=== PATIENT | male | born 1955 | race Caucasian/White ===

== ENCOUNTER 2017-08-07 20:32 | Emergency (ER) | payer OTHER, SELFPAY ==
[2017-08-07 20:33] VITALS: BP 122/60; PULSE 75; RESP 16; TEMP 36.1; O2SAT 98; BMI 26.4
[2017-08-07] MEDS: Tetracaine 0.5% Ophthalmic Bottle 1 DRP LEFT EYE (20:57)
--- NOTE | 2017-08-07 21:01 | ED.DCSUM_ITS ---
- ER Visit Summary Date of Service: 08/07/17 Chief Complaint: Foreign body History of Present Illness: The patient is a 61 M with left eye pain. He was sawing and got sawdust in his left eye. He tried to flush it at home, but it is not helping. Patient was wearing glasses. He does not use contact lenses. He has some mild blurriness to the eye. No other complaints. Physical Examination: Vital signs unremarkable. Patient alert and oriented. Extraocular structures and skin unremarkable. Extraocular movement normal. Pupils round and reactive, symmetrical. No obvious foreign body noted. Eyelids inverted. Otherwise exam unremarkable. Test Results: None indicated Emergency Department Course and Treatment: Tetracaine applied. Fluorescein applied. Patient has a corneal abrasion at 12:00. No foreign bodies noted. No other significant abnormalities noted. Treatment Plan: We will treat with erythromycin ointment. Follow-up with ophthalmology, call tomorrow. Return for any new or worsening issues. Disposition: Discharged Impression: 1. Left corneal abrasion This note was generated with [employer]ue[employer] dictation software. It may contain incorrect words, spelling, and punctuation that were not noted in review of the chart prior to signing ED Disposition - Plan for ED Patient: Disposition: Home or Assisted Living Chief Complaint: Eye Problem Instructions: Corneal Injury Referrals: Mo Milner MD [STAFF PHYSICIAN] - Additional Instructions: call Dr. Cardona office in the morning for follow up
--- NOTE | 2017-08-07 21:06 | DCINST.ED_ITS ---
ED Disposition - Plan for ED Patient: Chief Complaint: Eye Problem Instructions: Corneal Injury Referrals: Mo Milner MD [STAFF PHYSICIAN] - Additional Instructions: call Dr. Cardona office in the morning for follow up
[2017-08-07 21:13] VITALS: RESP 18
[2017-08-07] MEDS: Erythromycin Base 1 OPTH.TUBE 1 APPLIC LEFT EYE (21:13)
== END 2017-08-07 21:13 | disposition home or self-care (01) ==
LOC: ED 20:56
PROVIDERS: Emergency Provider Emergency Medicine; Family Provider Internal Medicine; PCP Internal Medicine
DX: S05.02XA Injury of conjunctiva and corneal abrasion without foreign body, left eye, initial encounter (principal); X58.XXXA Exposure to other specified factors, initial encounter; Y93.89 Activity, other specified; Y92.9 Unspecified place or not applicable
CPT/HCPCS: 99283

== ENCOUNTER 2020-04-17 10:41 | Outpatient (RCR) | payer BC, SELFPAY ==
[2020-04-17] MEDS: COVID-19 VACC, MRNA(PFIZER)/PF 30 MCG/0.3 ML SYRINGE IM (18:28)
[2020-05-08] MEDS: COVID-19 VACC, MRNA(PFIZER)/PF 30 MCG/0.3 ML SYRINGE IM (17:59)
== END 2020-04-17 23:59 ==
LOC: IMMUN 10:41
PROVIDERS: PCP Internal Medicine; Referring Provider Family Medicine; Visit Provider Family Medicine
DX: Z23 Encounter for immunization (principal)
CPT/HCPCS: 0001A; 0002A; 91300

== ENCOUNTER → 2021-06-15 | Outpatient (CLI) | payer OTHER, SELFPAY ==
--- NOTE | 2021-06-15 13:36 | SP.MBSS_ITS ---
Modified Barium Swallow - Patient Information Study Date: 06/15/21 Study Time: 13:00 Direct Billable Minutes: 120 Total Minutes procedure & reportin Diagnosis: Dysphagia, unspecified (R13.10) Referring Physician: Florecita Alonso Reason for Referral: Objectively assess swallow function, risk for aspiration, and determine recommendations for least restrictive diet textures and compensatory strategies to improve safety of swallow. 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 The patient reports history of swallowing difficulty in the past month characterized by 10lb weight loss, sensation of food getting stuck and building up in base of the throat, and occasional coughing with food and drink. He primarily eats soft solids, soups, and purees at this time. Current Diet Ordered: Soft solids / Thin liquids Dentition: WNL Mental Status: WNL Respiratory Status: Oxygenating on Room Air - Penetration-Aspiration Scale Penetration-Aspiration Scale: OBJECTIVE ASSESSMENT OF SWALLOW FUNCTION (QUANTITATIVE ? PER TRIAL): PENETRATION / ASPIRATION SCALE (ARELLANO): 1 = does not enter airway 2 = enters airway/above vocal folds/ejected 3 = enters airway/above vocal folds/not ejected 4 = enters airway/contacts vocal folds/ejected 5 = enters airway/contacts vocal folds/not ejected 6 = enters airway/below vocal folds/ejected 7 = enters airway/below vocal folds/not ejected despite effort 8 = enters airway/below vocal folds/no effort VIDEOFLOROSCOPIC SCALE SCORE (ARELLANO): Grade I = aspiration of material that has penetrated into the laryngeal vestibule, intact cough reflex Grade II = aspiration < 10 % of the bolus, intact cough reflex Grade III = aspiration of < 10 % of the bolus, reduced cough reflex or aspiration of > 10 % of the bolus, intact cough reflex Grade IV = aspiration of > 10 % of the bolus, reduced cough reflex - Penetration-Aspiration Scale Score Thin Liquid via teaspoon Result: 1= does not enter airway Thin Liquid via teaspoon Trial 2 Result: 1= does not enter airway Thin Liquid via teaspoon Trial 3 Result: 1= does not enter airway Thin Liquid via small single sip from cup Result: 1= does not enter airway Thin Liquid via sequential sips from cup Result: 1= does not enter airway [place] Thick Liquid via small single sip from cup Result: 1= does not enter airway [place] Thick Liquid via small single sip from cup Result: 1= does not enter airway Thin Liquid via single sip from straw Result: 2= enter airway/above vocal folds/ejected Thin Liquid via sequential sips from straw Result: 1= does not enter airway - Oral Phase Labial Seal: No Labial Escape Tongue Control During Bolus Hold: Posterior escape of less than half of bolus Bolus Preparation/Mastication: Slow prolonged chewing/mashing with complete recollection Bolus Transport/Lingual Motion: Brisk tongue motion Oral Residue: Residue collection on oral structures - Pharyngeal Phase Initiation of Pharyngeal Swallow: Bolus head at posterior laryngeal surgace of epiglottis Soft Palate Elevation: Trace column of contrast/air between soft palate and pharyngeal wall Laryngeal Elevation: Partial superior movement thyroid cart/partial apprx aryt- epig petiole Anterior Hyoid Excursion: Partial anterior movement Epiglottic Movement: Partial inversion Laryngeal Vestibule Closure at Height of Swallow: Incomplete; narrow column of air/contrast in laryngeal vestibule Pharyngeal Stripping Wave: Present - complete Pharyngoesophageal Segment Opening: Parital distension and partial duration; parital obstruction of flow Tongue Base Retraction: Narrow column of contrast between tongue base & post. pharyngeal wall Pharyngeal Residue: Collection of residue within or on pharyngeal structures - Esophageal Phase Esophageal Clearance: Esophageal retention w/ retrograde flow below pharyngoesophageal seg. - Diagnosis/Impression Diagnosis: Mild oropharyngeal dysphagia (R13.12), Esophageal dysphagia (R13.14) Impression: The oral phase is marked by a collection of oral residue after the swallow, which spills posteriorly to the vallecula after the swallow is completed. SEE image below of sequential sips of thin liquids with collection of oral residue evident after the swallow. The patient demonstrates timely mastication, but has posterior loss of portion of cookie bolus to the vallecula prior to swallow onset. The pharyngeal phase of the swallow is marked by decreased anterior hyoid excursion and laryngeal elevation; however, despite deficits the patient demonstrates excellent airway closure during the study. He has trace penetration of one sips of thin liquids via straw which fully ejects from the laryngeal vestibule after the swallow. He does have mild pharyngeal residues, especially noted with sequential sips of thin liquids. Pharyngeal residue results from decreased tongue base retraction and UES opening/duration. He is at increased risk to aspirate pharyngeal residues after the swallow. The esophageal phase of the swallow is marked by significant esophageal reten tion in the mid esophagus with retrograde flow below UES. The patient demonstrated slow esophageal emptying through a narrow distal esophagus. SEE images below of the esophageal screen for pudding and cookie trials. Cannot rule out risk for reflux aspiration. - Recommendations Diet: Regular Textures - Continue soft, moist textures as tolerated, Thin Liquid s Comment: Consider 4-5 smaller, more frequent meals vs. 3 large meals Compensatory Strategies: Small Bites, Small Sips, Slow Rate, Remain sitting up right for 30 minutes after PO intake - 60 minutes after meal Recommend Repeat Modified Barium Swallow: No Need for Skilled Speech Therapy Services: Yes Comment: Will recommend the patient for outpatient dysphagia therapy to address mild deficits in oropharyngeal swallow function. Would consider the patient for oropharyngeal strengthening to improve tongue base retraction, laryngeal elevation, and hyoid excursion. The patient would benefit from education regarding diet recommendations and recommended compensatory strategies. The patient appears to have a collection of oral residue in the buccal cavity near the angle of the ramus (SEE image below). No A-P view obtained. The patient is possibly demonstrating residue in the buccal sulci (pocketing); however, would recommend a thorough oral mech exam in buccal cavities to rule out a unilateral oral diverticulum. Recommended Referrals: GI Consult - The patient requires a GI consult to address significant esophageal retention with observed retrograde flow of contrast and slow esophageal emptying with narrow lower esophagus. Education Completed: 1. Described result of evaluation., 7. Pt requires further education on strategies & risks. - Status Active ST Patient: Active - Contact Information [facility] Speech Therapy:: Meenu Herzog M.A. [facility] Speech-Language Pathologist [facility] [address] [place] [address] [email or web address] [phone] 06/15/21 15:21
== END | disposition home or self-care (01) ==
LOC: RAD 12:57
PROVIDERS: PCP Internal Medicine
DX: R13.10 Dysphagia, unspecified (principal); R11.10 Vomiting, unspecified; R63.4 Abnormal weight loss
CPT/HCPCS: 74230; 92611

== ENCOUNTER → 2021-06-18 | Outpatient (CLI) | payer OTHER, SELFPAY ==
--- NOTE | 2021-06-18 08:09 | RAD_ITS ---
STUDY: X-RAY - ESOPHAGUS (BARIUM SWALLOW) WITH FLUOROSCOPY REASON FOR EXAM: Male, 65 years old. Gets stuck in mid esophagus. 12 MM TABLET TECHNIQUE: 26 view(s) of the esophagus were obtained following swallowing of barium. FLUOROSCOPY TIME (if supplied): (41 seconds) minutes/seconds COMPARISON: None. FINDINGS: There is no demonstrated esophageal foreign body. There is evidence of apple core lesion in the distal portion of the esophagus just proximal to the gastroesophageal junction. Normal gastroesophageal junction, without a demonstrated hiatal hernia. The patient ingested a 12 mm tablet of barium. The tablet is trapped in the distal esophagus at the level of the apple core lesion. There is atherosclerotic tortuosity of the aortic arch and descending thoracic aorta. Normal visualized pulmonary parenchyma. There are diffuse degenerative changes of the visualized thoracic spine. RAD/Esophagus Single Contrast IMPRESSION: Apple core lesion with narrowing in the distal esophagus just proximal to the gastroesophageal junction. The 12 mm tablet of barium is trapped at that site. Correlation with the endoscopy and biopsy recommended. Electronically Signed: Clayton Hirsch MD at 10:29 EDT ,
== END | disposition home or self-care (01) ==
LOC: RAD 08:08
PROVIDERS: PCP Internal Medicine; Referring Provider Internal Medicine Gastroenterology; Visit Provider Internal Medicine Gastroenterology
DX: R13.10 Dysphagia, unspecified (principal)
CPT/HCPCS: 74220

== ENCOUNTER 2021-08-12 22:57 | Emergency (ER) | payer OTHER, SELFPAY ==
[2021-08-12 22:58] VITALS: BP 125/81; PULSE 96; RESP 16; TEMP 36.8; O2SAT 100; BMI 23.6
--- NOTE | 2021-08-12 23:21 | EX.ED.DYSGE1 ---
HPI History of Present Illness Chief Complaint: GI Bleed Informant: patient and spouse/S.O. Narrative Narrative: 65-year-old male with history of esophageal cancer currently undergoing chemoradiation through [facility]. Patient states is very common for him to vomit but today began to vomit blood. He has had 2 doses of radiation. He used to be on Plavix and aspirin but has been holding that. This the first time he has vomited blood. He denies any chest abdomen or back pain. He last vomited when he got to the emergency department states there is less blood than before. He states that there is some blood clots earlier in the evening. [facility] Medical History (Updated 08/13/21 @ 02:[address] New Smith DO) Acute cerebrovascular accident BPH (benign prostatic hyperplasia) Cystic kidney disease Erectile dysfunction Esophagus cancer Fatty liver disease, nonalcoholic Hyperlipidemia Lung cancer Nocturnal leg cramps Other psoriasis PVC (premature ventricular contraction) Restless leg syndrome Sleep apnea Type 2 diabetes mellitus Unilateral inguinal hernia, without obstruction or gangrene, recurrent Ventricular arrhythmia Home Medications Benazepril Hcl [Lotensin] 20 mg PO BID 06/02/15 [History Last Taken 02/25/16 07:00] glipizide 5 mg tablet 5 mg PO DAILY@0730 06/02/15 [History Last Taken 06/02/15] metformin 500 mg tablet 500 mg PO BIDCM 06/02/15 [History Last Taken 06/02/15] Lovastatin [Mevacor] 40 mg PO QHS #30 TABLETS 06/03/15 [Rx Last Taken Unknown] clopidogrel 75 mg tablet 75 mg PO DAILY #30 TABLETS 06/03/15 [Rx Last Taken 02/20/16] amlodipine 10 mg tablet 10 mg PO DAILY 06/10/21 [History Last Taken Unknown] empagliflozin 10 mg tablet 10 mg PO DAILY 06/10/21 [History Last Taken Unknown] gabapentin 100 mg capsule 100 mg PO DAILY 06/10/21 [History Last Taken Unknown] Allergy/AdvReac Type Severity Reaction Status Date / Time pollen extracts Allergy Swelling Verified 08/12/21 22:59 Family History Father Heart disease Mother Heart disease Surgical History S/P laparoscopic hernia repair Social History Smoking Status: Former smoker alcohol intake: never substance use type: does not use ROS ROS ED Constitutional Constitutional ED: Denies chills or weight loss Eyes Eyes: Denies change in vision or diplopia ENT ENT ED: Denies ear pain, rhinorrhea or sore throat Cardiovascular Cardiovascular: Denies chest pain, orthopnea, palpitations or racing heartbeat Respiratory/Chest Respiratory/Chest: Reports other Details: Hemoptysis ; Denies cough, dyspnea or orthopnea Gastrointestinal Gastrointestinal: Reports nausea and vomiting; Denies abdominal pain or diarrhea Genitourinary Genitourinary ED: Denies dysuria, hematuria or urinary frequency Musculoskeletal Musculoskeletal: Denies arthralgias or myalgias Integumentary Denies abscess or rash Neurologic Neurologic: Denies headache(s) or weakness Psychiatric Psychiatric: Denies anxiety, depression, suicidal ideation or suicidal thoughts Endocrine Endocrinology: Denies polydipsia, polyphagia or polyuria Allergic/Immunologic Allergic/Immunologic ED: Denies mouth swelling, tongue swelling or urticaria EXAM Physical Exam Const Vital Signs: 08/12/21 22:58 Temperature 98.2 F Temperature Source Temporal Pulse Rate 96 Respiratory Rate 16 Blood Pressure 125/81 H Blood Pressure Mean 95 Pulse Ox 100 Oxygen Delivery Method Room Air Positive well nourished and well developed General Appearance ED: well developed HEENT Reports normocephalic, head/scalp atraumatic and moist mucous membranes Eyes PERRL and EOMs intact bilaterally Neck no lymphadenopathy, supple and no JVD Resp normal respiratory effort and clear to auscultation bilaterally Cardio regular rate, regular rhythm and no murmurs GI normal to inspection, nondistended, normoactive bowel sounds and non-tender Palpation: soft Back/Spine no CVA tenderness and normal ROM Extremity normal to inspection General Extremety ED: Negative for edema General Extremity: Negative for edema Neuro oriented x3 and CN's II-XII intact bilaterally Sensorium / Orientation: alert Motor Exam: strength 5/5 throughout Psych mental status grossly normal Mood & Affect: Negative for depressed or tearful Skin no rashes or lesions noted and no wounds MDM MDM MDM Narrative Medical decision making narrative: Patient is remained hemodynamically stable. His hemoglobin is 15.2. Since he has been here he is put out approximately 500 cc of bloody emesis. CT of the chest with IV con stress dentist rates distended esophagus and a tumor at the cardioesophageal junction extending into the stomach. My concern is that he has a esophageal erosion and given that they were unable to pass the scope beyond the esophageal tumor I am concerned that if he continues to bleed he may require cardiothoracic surgery. Spoke with [facility] and they have accepted the patient in transfer. Patient will receive IV fluids as well as Protonix. He is also received Zofran. Lab Data Attestation: I reviewed the patient's lab results. Labs: Laboratory Results - last 24 hr 08/12/21 08/12/21 23:49 23:49 WBC 12.8 H RBC 5.15 Hgb 15.2 Hct 46.2 MCV 89.7 MCH 29.5 MCHC 32.9 RDW Std Deviation 41.0 RDW Coeff of Chuck 12.4 Plt Count 283 MPV 9.9 Immature Gran % (Auto) 0.500 Neut % (Auto) 80.0 H Lymph % (Auto) 4.2 L Desha % (Auto) 5.7 Eos % (Auto) 9.4 H Baso % (Auto) 0.2 Absolute Neuts (auto) 10.3 H Absolute Lymphs (auto) 0.54 L Nucleated RBC % 0 Sodium 138 Potassium 4.0 Chloride 101 Carbon Dioxide 27.0 Anion Gap 10 BUN 30 H Creatinine 0.89 Estim Creat Clear Calc 86.96 Est GFR (MDRD) Af Amer 110 Est GFR (MDRD) Non-Af 91 BUN/Creatinine Ratio 33.8 H Glucose 241 H Calcium 8.7 Total Bilirubin 0.60 AST 12 L ALT 33 Alkaline Phosphatase 110 Total Protein 7.1 Albumin 3.1 L Globulin 4.0 Albumin/Globulin Ratio 0.8 L Radiography Diagnostic Testing: Clinical Impression(s) from Imaging Studies Chest CT 08/13/21 23:19 IMPRESSION: 1. Moderately dilated esophagus throughout its length filled with tumor, fluid, and a small amount of food debris. 2. Demonstration of lobulated neoplasm measuring 4.5 cm in diameter at the cardioesophageal junction, extending into the upper medial gastric fundus. 3. Multiple abnormal lymph nodes in the epigastric region and findings of mild mediastinal lymphadenopathy. 4. Normal trachea. 5. Multiple small alveolar foci throughout both lungs that do not have the classical appearance for metastatic disease. They may represent multiple small sites of emboli or multifocal small sites of aspiration. 6. No confluent infiltrates, atelectasis, effusion, pulmonary mass lesions. Mild cardiomegaly. 7. No evidence of metastatic disease involving the sternum, ribs or thoracic spine. Mild thoracic kyphosis with mild estimated degenerative changes. 8. Mild hepatomegaly with diffuse fatty infiltration. 9. Gastric tube in the distal gastric body. Electronically Signed: John Jeff MD at 1:43 EDT , Discharge Plan Triage Chief Complaint: GI Bleed ED Provider: New Smith Dx/Rx/DC Orders Clinical Impression: Esophageal cancer, Acute upper GI bleeding Prescriptions: No Action empagliflozin 10 mg tablet 10 mg PO DAILY gabapentin 100 mg capsule 100 mg PO DAILY amlodipine 10 mg tablet 10 mg PO DAILY glipizide 5 MG tablet 5 mg PO DAILY@0730 Label Comments: BLOOD SUGAR Benazepril Hcl [Lotensin] 20 MG tablet 20 mg PO BID Label Comments: BLOOD PRESSURE metformin 500 MG tablet 500 mg PO BIDCM Label Comments: BLOOD SUGAR clopidogrel 75 MG tablet 75 mg PO DAILY Qty: 30 0RF Label Comments: blood thinner Lovastatin [Mevacor] 40 MG tablet 40 mg PO QHS Qty: 30 0RF Label Comments: cholesterol Primary Care Provider: Job Cohen Referrals: Job Cohen MD [Primary Care Provider] - Disposition Disposition: Acute Care Hospital Discharge Location: [facility]
[2021-08-12] MEDS: Contrast Allergy Safety Check IV (23:51)
[2021-08-12] MEDS: 0.9% Normal Saline 1,000 ML 999 ML IV (23:51)
[2021-08-12] MEDS: Ondansetron 4 MG/2 ML Vial IV (23:59)
[2021-08-13 00:06] LABS: Absolute Lymphocyte Count 0.54 X10^3/uL (0.83-4.51); Absolute Neutrophil Count 10.3 X10^3/uL (2.0-7.7); Basophil# 0.03 X10^3/uL; Basophil% 0.2 % (0-1); Eosinophil# 1.21 X10^3/uL; Eosinophils% 9.4 % (0-5); Hematocrit 46.2 % (40-54); Hemoglobin 15.2 g/dL (13.0-16.5); Lymphocyte # 0.54 X10^3/ul (0.83-4.51); Lymphocyte % 4.2 % (19-41); Mean Corp Hgb Conc 32.9 g/dL (32-36); Mean Corpuscular Hgb 29.5 pg (27.0-32.0); Mean Corpuscular Volume 89.7 fL (80-94); Mean Platelet Vol. 9.9 fl (6.2-12.0); Monocyte# 0.73 X10^3/uL; Monocyte% 5.7 % (0-10); NRBC Flagged by Analyzer 0 % (0-5); Neutrophil # 10.25 X10^3/uL (2.7-7.7); POSITIVE DIFFERENTIAL YES; Platelet Count 283 K/mm3 (150-450); RBC Distribution Width CV 12.4 % (11.6-14.6); Red Blood Count 5.15 M/mm3 (4.6-6.2); White Blood Count 12.8 K/mm3 (4.4-11.0)
[2021-08-13 00:07] LABS: Differential Indicated SCAN CRITERIA MET
[2021-08-13 00:23] LABS: ALB/GLOB Ratio 0.8 RATIO (0.9-2.4); AST(SGOT) 12 U/L (15-37); Alanine Aminotransfer ALT/SGPT 33 U/L (16-61); Albumin, Serum 3.1 g/dL (3.2-5.0); Alkaline Phosphatase 110 U/L (45-117); Anion Gap 10 (5-15); BUN 30 mg/dL (7-18); BUN/Creat Ratio 33.8 RATIO (10-20); Calcium,Total 8.7 mg/dL (8.5-10.1); Chloride 101 mmol/L (98-107); Creatinine, Serum 0.89 mg/dL (0.70-1.30); EST Glomerular Filtration Rate 91 mL/min (>60); Est Glom Filt Rate - Afr Amer 110 mL/min (>60); Estimated Creatinine Clearance 86.96 ml/min; Glucose 241 mg/dL (74-106); Protein, Total 7.1 g/dL (6.4-8.2); Sodium Level 138 mmol/L (136-145)
[2021-08-13] MEDS: Ondansetron 4 MG/2 ML Vial IV (00:39)
[2021-08-13 02:02] VITALS: BP 110/65; PULSE 86; RESP 15; TEMP 36.6; O2SAT 97
[2021-08-13 02:11] VITALS: BP 128/77; PULSE 102; RESP 15; TEMP 36.2; O2SAT 96
--- NOTE | 2021-08-13 23:19 | CT_ITS ---
STUDY: CT CHEST WITH CONTRAST ENHANCEMENT OF 0049 HOURS ON 08/13/2021 REASON FOR EXAM: 65-year-old male with esophageal cancer. RADIATION DOSAGE (If Supplied By Facility): CTDIvol = ( 12.80 ) mGy, DLP = ( 622.16 ) mGycm TECHNIQUE: Transaxial imaging was performed following intravenous administration of IV 100mL Isovue-300. Individualized dose optimization techniques were used for this CT. COMPARISON: None. FINDINGS: There is mild cardiomegaly. There is a prominently dilated esophagus throughout its length measuring 1.8 cm in the cervical region, 4.2 cm in the mid thoracic region, and 4.3 cm just above the cardioesophageal junction. It is filled with tumor, fluid, and a small amount of fluid debris.. There are findings suggestive of an irregular lobulated mass measuring 4.5 cm at the cardioesophageal junction, extending into the upper medial gastric fundus. A gastric tube is noted in the distal gastric body. There are multiple abnormal lymph nodes in the epigastric region. There are findings of mild mediastinal lymphadenopathy. The trachea has a normal appearance. There are multiple small alveolar foci throughout both lungs that do not have the classical appearance of metastatic disease. They may represent multiple small sites of emboli or multifocal small sites of aspiration. There is no confluent infiltrates, effusions, atelectasis. There is no evidence of pleural abnormalities. There are no findings of pulmonary thromboembolism. There is a normal thoracic aorta without evidence of dissection or aneurysm. There is a moderate thoracic kyphosis. There are mild diffuse osteophytic degenerative changes of the thoracic spine. There is anterior osteophyte formation between the first and second segment of the sternum. There is no evidence of sternal fractures. There is no evidence of thoracic spine, sternal, or rib metastatic lesions. There is mild hepatomegaly with diffuse fatty infiltration. The pancreas has normal appearance. CT/Chest WITH Contrast IMPRESSION: 1. Moderately dilated esophagus throughout its length filled with tumor, fluid, and a small amount of food debris. 2. Demonstration of lobulated neoplasm measuring 4.5 cm in diameter at the cardioesophageal junction, extending into the upper medial gastric fundus. 3. Multiple abnormal lymph nodes in the epigastric region and findings of mild mediastinal lymphadenopathy. 4. Normal trachea. 5. Multiple small alveolar foci throughout both lungs that do not have the classical appearance for metastatic disease. They may represent multiple small sites of emboli or multifocal small sites of aspiration. 6. No confluent infiltrates, atelectasis, effusion, pulmonary mass lesions. Mild cardiomegaly. 7. No evidence of metastatic disease involving the sternum, ribs or thoracic spine. Mild thoracic kyphosis with mild estimated degenerative changes. 8. Mild hepatomegaly with diffuse fatty infiltration. 9. Gastric tube in the distal gastric body. Electronically Signed: John Jeff MD at 1:43 EDT ,
== END 2021-08-13 04:05 | disposition short-term general hospital (02) ==
PROVIDERS: Emergency Provider Emergency Medicine; PCP Internal Medicine; Visit Provider Emergency Medicine
DX: C15.9 Malignant neoplasm of esophagus, unspecified (principal); K92.2 Gastrointestinal hemorrhage, unspecified; G47.30 Sleep apnea, unspecified; Z79.82 Long term (current) use of aspirin; Z79.01 Long term (current) use of anticoagulants; Z87.891 Personal history of nicotine dependence
CPT/HCPCS: 71260; 80053; 85025; 96374; 96376; 99285; J7030; Q9967; A4216; J2405; J3490

== ENCOUNTER 2022-01-15 15:20 | Inpatient (IN) | payer MEDICARE, SELFPAY ==
[2022-01-15] VITALS (12 sets, daily range): BP systolic 107–158; BP diastolic 81–88; PULSE 73–113; RESP 17–32; TEMP 36.2–36.6; O2SAT 88–95; BMI 22.3
--- NOTE | 2022-01-15 15:48 | EKG12_ITS ---
Test Reason : Blood Pressure : / mmHG Vent. Rate : 103 BPM Atrial Rate : 103 BPM P-R Int : 144 ms QRS Dur : 086 ms QT Int : 346 ms P-R-T Axes : 028 -45 069 degrees QTc Int : 453 ms Sinus tachycardia Left axis deviation Abnormal ECG Confirmed by ASH SOARES, CHAPIN ([id number]), society editor LIBAN PARSONS ([id number]) on 01/19/2022 12:14:46 PM Referred By: Confirmed By:CHAPIN ALEMAN MD
--- NOTE | 2022-01-15 15:49 | EDS_ITS ---
HPI History of Present Illness Chief Complaint: Cough Informant: patient Onset/Context/Timing Onset: Weeks Context: Gradual Onset Narrative Narrative: Patient sent in by oncology for admission secondary to cough and shortness of breath. He reported had a cough for the past 2 weeks. He said no fever, chest pain, or sputum production. He had a chest x-ray yesterday that reportedly showed small pleural effusions. He had a CT scan done today that shows pneumonitis. Dr. Olson asked the patient to come in and he is to be admitted for IV steroids. Dr. Olson believes the pneumonitis is secondary to one of his medications. Last chemotherapy treatment was on January 04. He receives treatments every 2 weeks. [facility] Medical History Acute cerebrovascular accident BPH (benign prostatic hyperplasia) Cystic kidney disease Erectile dysfunction Esophagus cancer Fatty liver disease, nonalcoholic Hyperlipidemia Lung cancer Nocturnal leg cramps Other psoriasis PVC (premature ventricular contraction) Restless leg syndrome Sleep apnea Type 2 diabetes mellitus Unilateral inguinal hernia, without obstruction or gangrene, recurrent Ventricular arrhythmia Home Medications Benazepril Hcl [Lotensin] 20 mg PO BID 06/02/15 [History Last Taken 02/25/16 07:00] glipizide 5 mg tablet 5 mg PO DAILY@0730 06/02/15 [History Last Taken 06/02/15] metformin 500 mg tablet 500 mg PO BIDCM 06/02/15 [History Last Taken 06/02/15] Lovastatin [Mevacor] 40 mg PO QHS #30 TABLETS 06/03/15 [Rx Last Taken Unknown] clopidogrel 75 mg tablet 75 mg PO DAILY #30 TABLETS 06/03/15 [Rx Last Taken 02/20/16] amlodipine 10 mg tablet 10 mg PO DAILY 06/10/21 [History Last Taken Unknown] empagliflozin 10 mg tablet 10 mg PO DAILY 06/10/21 [History Last Taken Unknown] gabapentin 100 mg capsule 100 mg PO DAILY 06/10/21 [History Last Taken Unknown] Allergy/AdvReac Type Severity Reaction Status Date / Time pollen extracts Allergy Swelling Verified 01/15/22 15:24 Family History Father Heart disease Mother Heart disease Surgical History S/P laparoscopic hernia repair Social History Smoking Status: Former smoker alcohol intake: never substance use type: does not use ROS ROS ED Constitutional Constitutional ED: Denies chills or fever(s) Eyes Eyes: Denies change in vision or discharge from eye(s) ENT ENT ED: Denies discharge from eye(s), rhinorrhea or sore throat Cardiovascular Cardiovascular: Denies chest pain or palpitations Respiratory/Chest Respiratory/Chest: Reports cough and dyspnea; Denies sputum Gastrointestinal Gastrointestinal: Denies abdominal pain, nausea or vomiting Genitourinary Genitourinary ED: Denies dysuria Musculoskeletal Musculoskeletal: Denies back pain or extremity pain Integumentary Denies Abrasions or rash Neurologic Neurologic: Denies headache(s) or weakness Psychiatric Psychiatric: Denies anxiety or depression Allergic/Immunologic Allergic/Immunologic ED: Denies lip swelling or urticaria EXAM Physical Exam Const Vital Signs: 01/15/22 15:21 01/15/22 15:42 01/15/22 16:02 Temperature 97.2 F L Temperature Source Temporal Pulse Rate 113 H Respiratory Rate 22 H Respiratory Effort Short of Breath Blood Pressure 158/81 H Blood Pressure Mean 106 Pulse Ox 89 88 Oxygen Delivery Method Room Air Room Air Room Air Oxygen Flow Rate (L/min) 01/15/22 16:10 Temperature Temperature Source Pulse Rate Respiratory Rate Respiratory Effort Blood Pressure Blood Pressure Mean Pulse Ox 91 Oxygen Delivery Method Nasal Cannula Oxygen Flow Rate (L/min) 2 Positive well nourished and well developed General Appearance ED: well developed HEENT Reports normocephalic and head/scalp atraumatic Eyes PERRL and EOMs intact bilaterally Neck supple Chest Wall inspection of chest normal and palpation of chest normal Resp Resp Narrative: Tachypneic. Lung sounds slightly diminished at the bases. No wheezing appreciated. Cardio regular rhythm Rate: tachycardic GI normal to inspection, nondistended, normoactive bowel sounds Palpation: soft Extremity normal to inspection Neuro oriented x3 and no sensory deficits noted Sensorium / Orientation: alert Motor Exam: strength 5/5 throughout Psych mental status grossly normal Skin no rashes or lesions noted MDM MDM MDM Narrative Medical decision making narrative: Lab work obtained along with EKG. Respiratory viral panel sent. Patient already had x-ray and chest CT performed. He was given IV Solu-Medrol. I spoke with hospitalist who then in turn call Dr. Olson. They have a plan for treatment at this time and she will be down to see the patient for admission. EKG Initial EKG: Attestation: I personally reviewed and interpreted this EKG as follows: Interpretation: Sinus Tachycardia (Sinus tach at 103 with no acute ischemia.) Treatment and Re-Evaluation Narrative: EKG reveals sinus tachycardia with no ischemia. I was notified by respiratory staff when he handed me the EKG that the patient's O2 sat was 88% when I walked in the room. He is currently on 3 L and satting 91 to 92%. Discharge Plan Triage Chief Complaint: Cough ED Provider: Shirlene Melgar Dx/Rx/DC Orders Clinical Impression: Pneumonitis Prescriptions: No Action empagliflozin 10 mg tablet 10 mg PO DAILY gabapentin 100 mg capsule 100 mg PO DAILY amlodipine 10 mg tablet 10 mg PO DAILY glipizide 5 MG tablet 5 mg PO DAILY@0730 Label Comments: BLOOD SUGAR Benazepril Hcl [Lotensin] 20 MG tablet 20 mg PO BID Label Comments: BLOOD PRESSURE metformin 500 MG tablet 500 mg PO BIDCM Label Comments: BLOOD SUGAR clopidogrel 75 MG tablet 75 mg PO DAILY Qty: 30 0RF Label Comments: blood thinner Lovastatin [Mevacor] 40 MG tablet 40 mg PO QHS Qty: 30 0RF Label Comments: cholesterol Primary Care Provider: Job Cohen Referrals: Job Cohen MD [Primary Care Provider] - Disposition Disposition: Acute Care Hospital [facility]
--- NOTE | 2022-01-15 16:13 | HP.PCM.HOS_ITS ---
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 Olson for concern for relation to his oncologic medications with need for IV steroids with his last chemoth erapeutic regimen on 01/04/2022 reportedly receiving his treatments every 2 weeks. Discussed evaluation of patient with patient's oncologist, Dr. Olson and he reported the in the office he initially been 98% however even just transitioning to the chair he dropped to 91% and that patient's medication Opdivo is the likely source and he had been getting this as well as FOLFOX every 2 weeks for 11 cycles without prior issues until now. In the ED work-up included T97.2, heart rate initially 113, BP 158/81, respiratory rate 22, 89% on room air although did decrease then to 88% on room air eventually placed on 2 L nasal cannula to maintain 91% oxygenation, CBC with WBC 7.7, hemoglobin 12.5, MCV 100.3, platelet 175 with mildly increased neutrophil percent, lymphopenia, BMP with BUN/creatinine 16/0.58, glucose 108, BNP 25, rapid COVID antigen and influenza negative. In the ED patient ministered Solu-Medrol 125 mg IV x1. PFSH Medical History Acute cerebrovascular accident BPH (benign prostatic hyperplasia) Cystic kidney disease Erectile dysfunction Esophagus cancer Fatty liver disease, nonalcoholic Hyperlipidemia Lung cancer Nocturnal leg cramps Other psoriasis PVC (premature ventricular contraction) Restless leg syndrome Sleep apnea Type 2 diabetes mellitus Unilateral inguinal hernia, without obstruction or gangrene, recurrent Ventricular arrhythmia Home Medications metformin 500 mg tablet 1,000 mg PO BIDCM BLOOD SUGAR 06/02/15 [History Last Taken 01/15/22] apixaban 5 mg tablet (Eliquis) 5 mg PO DAILY BLOOD THINNER 01/15/22 [History Last Taken 01/15/22] benazepril 20 mg tablet 20 mg PO DAILY BLOOD PRESSURE 01/15/22 [History Last Taken 01/14/22] empagliflozin 25 mg tablet (Jardiance) 25 mg PO DAILY DM 01/15/22 [History Last Taken 01/15/22] glipizide 5 mg tablet, extended release 24 hr 5 mg PO DAILY BLOOD SUGAR 01/15/22 [History Last Taken 01/15/22] levothyroxine 50 mcg tablet 50 mcg PO DAILY THYROID 01/15/22 [History Last Taken 01/15/22] lovastatin 40 mg tablet 40 mg PO DAILY CHOLESTEROL 01/15/22 [History Last Taken 01/14/22] metoclopramide HCl 5 mg/5 mL oral solution 10 mg PO Q6H NAUSEA 01/15/22 [History Last Taken 01/15/22] omeprazole 40 mg capsule,delayed release 40 mg PO DAILY GERD 01/15/22 [History Last Taken 01/15/22] Allergy/AdvReac Type Severity Reaction Status Date / Time pollen extracts Allergy Swelling Verified 01/15/22 15:24 Family History Father Heart disease Mother Heart disease Surgical History (Updated 01/15/22 @ 20:[address] Nicole Leiva MD) History of gastric surgery S/P laparoscopic hernia repair S/P percutaneous endoscopic gastrostomy (PEG) tube placement Social History (Updated 01/15/22 @ 20:[address] Nicole Leiva MD) household members: spouse Smoking Status: Former smoker how long ago did patient quit smoking: Quit ~ 15 years prior, smoked cigars prior intermittently. alcohol intake: never substance use type: does not use ROS ROS Narrative Admission Review of Systems: CONSTITUTIONAL: No weight loss, fever, chills, + weakness or fatigue. HEENT: Eyes: No visual loss, blurred vision, double vision or yellow sclerae. Ears, Nose, Throat: No hearing loss, sneezing, congestion, runny nose or sore throat. SKIN: No rash or itching, lesions, wounds. CARDIOVASCULAR: No chest pain, chest pressure or chest discomfort, palpitations, edema, orthopnea, syncopal events. RESPIRATORY: + shortness of breath, cough without marked sputum, No wheezing, hemoptysis. GASTROINTESTINAL: + anorexia, chronic dysphagia, on TF with PEG, No marked nausea, vomiting or diarrhea, abdominal pain, melena, BRBPR. GENITOURINARY: No dysuria, frequency, urgency or retention. NEUROLOGICAL: No headache, dizziness, syncope, paralysis, ataxia, numbness or tingling in the extremities, focal weakness, change in bowel or bladder control, seizure. MUSCULOSKELETAL: + muscle, back pain, joint pain or stiffness. HEMATOLOGIC: + anemia, bleeding or bruising. LYMPHATICS: No enlarged nodes. No history of splenectomy. PSYCHIATRIC: No history of depression or anxiety. ENDOCRINOLOGIC: No reports of sweating, cold or heat intolerance. No polyuria or polydipsia. ALLERGIES: + history of rhinitis. Vital Signs Vital Signs Vital Signs: 01/15/22 15:21 01/15/22 15:42 01/15/22 16:02 Temperature 97.2 F L Temperature Source Temporal Pulse Rate 113 H Respiratory Rate 22 H Respiratory Effort Short of Breath Blood Pressure 158/81 H Blood Pressure Mean 106 Pulse Ox 89 88 Oxygen Delivery Method Room Air Room Air Room Air Oxygen Flow Rate (L/min) 01/15/22 16:10 Temperature Temperature Source Pulse Rate Respiratory Rate Respiratory Effort Blood Pressure Blood Pressure Mean Pulse Ox 91 Oxygen Delivery Method Nasal Cannula Oxygen Flow Rate (L/min) 2 Weight Weight: 160 lb Body Mass Index (BMI) 22.3 Physical Exam Narrative Physical Examination: General: Awake, alert, oriented x 3 and cooperative, seated upright in the ED bed, fatigued appearing. Skin: Normal color, normal turgor, no icterus, no cyanosis except occasional st aged ecchymoses. HEENT: AT/NC, EOMI, PERRLA, MMM, no carotid bruits or JVD noted. Lungs: Diminished, greater bases, mildly increased respiratory rate but no distress, no rales, ronchi or wheezing. Heart: Mildly tachycardic with regular rhythm; no gallop, rub audible. Abdomen: Soft, PEG tube in place with skin well-appearing around insertion site, NTTP, ND, mildly hyperactive BS, no HSM. Extremities: No cyanosis, clubbing, or edema. Neurological: Patient awake, alert, oriented as noted, cognitive function intact; pupils equally reactive to light and accommodation, cranial nerves II- XII grossly normal, moving all 4 extremities, no focal deficits, strength moderately global decrease secondary to acute presentation Psychiatric: Affect appears fatigued, no acute evidence of depressive or anxiety feelings. 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 Olson for concern for relation to his oncologic medications. #1. 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 We will not place formal rotation with oncology at this time but per discussion with oncology will continue IV steroids and once patient is clinically improved and able to ambulate without significant hypoxia would plan discharge on prednisone 60 mg daily with early follow-up with oncology. #2. Esophageal cancer with metastatic disease to the lung as well as upper abdominal lymph nodes with associated chronic dysphagia following operative intervention: We will continue patient home chronic tube feeds with his home tube feed regimen as well with requested consultation with nutrition to assure appropriate supplementation and oral intake. We will have patient on soft mechanical per discussion with him and his spouse with requested speech therapy evaluation currently. Given ongoing treatments will request mag and phos levels. #3. Chronic anemia: Admission hemoglobin 12.5, MCV 100.3, likely secondary to ongoing treatments with most recent hemoglobin in the system several months prior however per discussion with oncology likely stable, continue to trend. #4. Hypertension: Continue home regimen including benazepril, amlodipine, PRN hydralazine. #5. Hyperlipidemia: Continue home statin regimen. #6. Diabetes mellitus type II with neuropathy: Hold oral home regimen, ADA diet with specific texture alterations given dysphagia as well as continued tube per patient's home tube feed regimen, accu checks w/ ISS, continue patient on shirley apentin regimen. #7. History CVA: We will continue patient home Plavix, statin, hypertensive regimen as noted as well as diabetic regimen with alterations. #8. Restless leg syndrome: Per current list not on regimen but if necessary may add Requip. #9. Former tobacco use: Encourage continued tobacco cessation. #10. BPH: For current list on regimen, may add Flomax if symptomatic. #11. Hx VTE: Hx DVT, PE following port placement per discussion with Dr. Olson, continue home eliquis regimen. #12. GERD: We will continue patient home PPI. #13. ZAC: CPAP nightly. #14. DVT Prophylaxis: SCDs, continue home eliquis regimen. #15. CODE status: Patient HCPOA and living will is not in place. Given patient disease history and active metastatic disease strongly encourage them to review these items and request assistance from social work/case management for information. Discussed CODE status at length including difference between FULL code, DNR-CCA and DNR-CC status. Following discussions about the differences in these status, requested Full Code status. Advanced Care Planning Face to Face Time: 16 minutes. Charges/Coding Visit Charges Inpatient E&M: 89631 Init Hosp L3 Procedures Hospitalists Procedures: 90312 Advncd Care Plan 30 Min
[2022-01-15] MEDS: MethylPREDNISolone 125 MG/2 ML Vial IV (16:36)
[2022-01-15 16:37] LABS: Absolute Lymphocyte Count 0.19 X10^3/uL (0.83-4.51); Absolute Neutrophil Count 5.7 X10^3/uL (2.0-7.7); Basophil# 0.04 X10^3/uL; Basophil% 0.5 % (0-1); Eosinophils% 5.2 % (0-5); Hematocrit 39.2 % (40-54); Hemoglobin 12.5 g/dL (13.0-16.5); Lymphocyte # 0.19 X10^3/ul (0.83-4.51); Lymphocyte % 2.5 % (19-41); Mean Corp Hgb Conc 31.9 g/dL (32-36); Mean Corpuscular Volume 100.3 fL (80-94); Mean Platelet Vol. 8.8 fl (6.2-12.0); Monocyte% 16.9 % (0-10); NRBC Flagged by Analyzer 0 % (0-5); Neutrophil # 5.71 X10^3/uL (2.7-7.7); Neutrophil % 74.5 % (47-70); POSITIVE DIFFERENTIAL YES; Platelet Count 175 K/mm3 (150-450); RBC Distribution Width CV 17.5 % (11.6-14.6); RBC Distribution Width SD 64.4 fl (35.1-43.9); Red Blood Count 3.91 M/mm3 (4.6-6.2); White Blood Count 7.7 K/mm3 (4.4-11.0)
[2022-01-15 16:42] LABS: Differential Indicated SCAN CRITERIA MET
[2022-01-15 16:50] LABS: Phosphorus 3.3 mg/dL (2.5-4.9)
[2022-01-15 16:55] LABS: Differential Comment SCANNED
[2022-01-15 17:05] LABS: Anion Gap 5 (5-15); BUN 16 mg/dL (7-18); BUN/Creat Ratio 27.5 RATIO (10-20); Calcium,Total 8.7 mg/dL (8.5-10.1); Chloride 107 mmol/L (98-107); Creatinine, Serum 0.58 mg/dL (0.70-1.30); EST Glomerular Filtration Rate 148 mL/min (>60); Est Glom Filt Rate - Afr Amer 179 mL/min (>60); Estimated Creatinine Clearance 73.58 ml/min; Glucose 108 mg/dL (74-106); Magnesium 2.1 mg/dL (1.6-2.6); Potassium 3.9 mmol/L (3.5-5.1); Sodium Level 140 mmol/L (136-145)
[2022-01-15 17:19] LABS: Procalcitonin 0.18 ng/mL (0.00-0.09)
[2022-01-15] MEDS: 0.9% Saline Lock 10 ML Syringe IV (17:40)
[2022-01-15 18:25] LABS: Bedside Glucose 96 mg/dL (74-106)
[2022-01-15] MEDS: Ipratropium/Albuterol Sulfate 3 ML AMPUL.NEB INHALATION (19:48)
--- NOTE | 2022-01-15 20:11 | NURSING ---
Upon entering the room, found pt on 5 L NC.
[2022-01-15] MEDS: Atorvastatin Calcium 20 MG Tablet PO (23:48)
[2022-01-15] MEDS: APIXABAN 5 MG TABLET PO (23:49)
[2022-01-16] VITALS (13 sets, daily range): BP systolic 100–137; BP diastolic 72–85; PULSE 69–91; RESP 12–26; TEMP 35.8–36.6; O2SAT 88–96
[2022-01-16] MEDS: 0.9% Saline Lock 10 ML Syringe IV ×2 (00:15→18:45)
[2022-01-16] MEDS: Metoclopramide 10 MG/10 ML UDC PO ×3 (00:31→21:11)
--- NOTE | 2022-01-16 01:29 | CPS ---
bipap settings initially set at 12/8, as these are his home settings. pt wasnt able to tolerate it, pressure decreased to 8/4.
[2022-01-16] MEDS: Insulin Lispro 100 UNIT/ML INSULN.PEN SC ×4 (06:25→21:09)
[2022-01-16] MEDS: Levothyroxine 50 MCG Tablet PO (06:28)
[2022-01-16 07:28] LABS: Absolute Lymphocyte Count 0.18 X10^3/uL (0.83-4.51); Absolute Neutrophil Count 2.7 X10^3/uL (2.0-7.7); Basophil# 0.01 X10^3/uL; Basophil% 0.3 % (0-1); Hematocrit 39.7 % (40-54); Hemoglobin 12.5 g/dL (13.0-16.5); Lymphocyte # 0.18 X10^3/ul (0.83-4.51); Lymphocyte % 5.7 % (19-41); Mean Corp Hgb Conc 31.5 g/dL (32-36); Mean Corpuscular Hgb 31.6 pg (27.0-32.0); Mean Corpuscular Volume 100.3 fL (80-94); Monocyte# 0.28 X10^3/uL; Monocyte% 8.8 % (0-10); NRBC Flagged by Analyzer 0 % (0-5); Neutrophil % 84.9 % (47-70); POSITIVE DIFFERENTIAL YES; Platelet Count 178 K/mm3 (150-450); RBC Distribution Width CV 17.2 % (11.6-14.6); RBC Distribution Width SD 63.4 fl (35.1-43.9); Red Blood Count 3.96 M/mm3 (4.6-6.2); White Blood Count 3.2 K/mm3 (4.4-11.0)
[2022-01-16 07:30] LABS: Bedside Glucose 331 mg/dL (74-106)
[2022-01-16 07:35] LABS: Differential Indicated SCAN CRITERIA MET
[2022-01-16 08:07] LABS: ALB/GLOB Ratio 0.6 RATIO (0.9-2.4); AST(SGOT) 25 U/L (15-37); Alanine Aminotransfer ALT/SGPT 39 U/L (16-61); Albumin, Serum 2.6 g/dL (3.2-5.0); Alkaline Phosphatase 224 U/L (45-117); Anion Gap 5 (5-15); BUN 22 mg/dL (7-18); BUN/Creat Ratio 35.8 RATIO (10-20); Calcium,Total 9.3 mg/dL (8.5-10.1); Chloride 108 mmol/L (98-107); Creatinine, Serum 0.61 mg/dL (0.70-1.30); EST Glomerular Filtration Rate 139 mL/min (>60); Est Glom Filt Rate - Afr Amer 168 mL/min (>60); Estimated Creatinine Clearance 73.58 ml/min; Globulin 4.4 g/dL (2.2-4.2); Glucose 300 mg/dL (74-106); Sodium Level 140 mmol/L (136-145)
[2022-01-16 08:53] LABS: Anisocytosis 1+; Macrocytosis 1+; Platelet Estimate ADEQUATE (ADEQ)
[2022-01-16] MEDS: Lisinopril 20 MG Tablet PO (10:25)
[2022-01-16] MEDS: APIXABAN 5 MG TABLET PO ×2 (10:25→21:11)
[2022-01-16] MEDS: Pantoprazole Sodium 40 MG Tablet PO (10:25)
[2022-01-16 12:25] LABS: Bedside Glucose 239 mg/dL (74-106)
--- NOTE | 2022-01-16 13:46 | PN.HOSP_ITS ---
Subjective Subjective Follow-up for pneumonitis most likely due to immunotherapy/chemotherapy. Patient shortness of breath is better. Objective Data Objective Data Vital Signs: Vital Signs Temp Pulse Resp BP Pulse Ox O2 Del Method O2 Flow Rate 98 F 69 24 H 113/84 H 92 Nasal Cannula 3 01/16/22 10:22 01/16/22 10:22 01/16/22 10:22 01/16/22 10:22 01/16/22 11:10 01/16/22 11:10 01/16/22 11:10 FiO2 40 01/16/22 01:01 Oxygen Flow Rate (L/min) 3 Oxygen Delivery Method Nasal Cannula Weight: 160 lb Body Mass Index (BMI) 22.3 Intake & Output: Intake and Output for Last 24 Hours 01/14/22 01/15/22 01/16/22 23:59 23:59 23:59 Intake Total 500 / 500 Balance 500 / 500 Lab / Micro Data Result Diagrams: 01/16/22 06:54 01/16/22 06:54 Labs: Laboratory Results - last 24 hr 01/15/22 16:30: WBC 7.7, RBC 3.91 L, Hgb 12.5 L, Hct 39.2 L, MCV 100.3 H, MCH 32.0, MCHC 31.9 L, RDW Std Deviation 64.4 H, RDW Coeff of Chuck 17.5 H, Plt Count 175, MPV 8.8, Immature Gran % (Auto) 0.400, Neut % (Auto) 74.5 H, Lymph % (Auto) 2.5 L, [place] % (Auto) 16.9 H, Eos % (Auto) 5.2 H, Baso % (Auto) 0.5, Absolute Neuts (auto) 5.7, Absolute Lymphs (auto) 0.19 L, Nucleated RBC % 0, Differential Comment SCANNED 01/15/22 16:30: Sodium 140, Potassium 3.9, Chloride 107, Carbon Dioxide 28.0, Anion Gap 5, BUN 16, Creatinine 0.58 L, Estim Creat Clear Calc 73.58, Est GFR (MDRD) Af Amer 179, Est GFR (MDRD) Non-Af 148, BUN/Creatinine Ratio 27.5 H, Glucose 108 H, Calcium 8.7, Magnesium 2.1 01/15/22 16:30: B-Natriuretic Peptide 25.0 01/15/22 16:30: Phosphorus 3.3 01/15/22 16:30: Procalcitonin 0.18 H 01/15/22 17:38: POC Glucose 96 01/16/22 06:17: POC Glucose 331 H 01/16/22 06:54: WBC 3.2 L, RBC 3.96 L, Hgb 12.5 L, Hct 39.7 L, MCV 100.3 H, MCH 31.6, MCHC 31.5 L, RDW Std Deviation 63.4 H, RDW Coeff of Chuck 17.2 H, Plt Count 178, MPV 10.0, Immature Gran % (Auto) 0.300, Neut % (Auto) 84.9 H, Lymph % (Auto) 5.7 L, [place] % (Auto) 8.8, Eos % (Auto) 0.0, Baso % (Auto) 0.3, Absolute Neuts (auto) 2.7, Absolute Lymphs (auto) 0.18 L, Nucleated RBC % 0, Diff Path Review June, Platelet Estimate ADEQUATE, Anisocytosis 1+, Macrocytosis 1+ 01/16/22 06:54: Sodium 140, Potassium 4.0, Chloride 108 H, Carbon Dioxide 27.0, Anion Gap 5, BUN 22 H, Creatinine 0.61 L, Estim Creat Clear Calc 73.58, Est GFR (MDRD) Af Amer 168, Est GFR (MDRD) Non-Af 139, BUN/Creatinine Ratio 35.8 H, Glucose 300 H, Calcium 9.3, Total Bilirubin 0.40, AST 25, ALT 39, Alkaline Phosphatase 224 H, Total Protein 7.0, Albumin 2.6 L, Globulin 4.4 H, Albumin/Globulin Ratio 0.6 L 01/16/22 11:57: POC Glucose 239 H Micro: Microbiology 01/16/22 00:49 Urine, Clean Catch Legionella Antigen - Final 01/16/22 00:49 Urine, Clean Catch Streptococcus pneumoniae Antigen (M - Final 01/15/22 16:15 Mucosa - Nasopharyngeal Respiratory Panel (PCR) - Final 01/15/22 16:15 Nasal Secretion SARS-CoV-2 Antigen (Rapid) - Final Physical Exam Narrative Physical exam General: Alert, Oriented x3, Cooperative HEENT: Atraumatic, PERRLA, EOMI, Normocephalic Oral: No Gingival or Mucosal Lesions/ Ulcerations Neck: Supple, No JVD, Negative Carotid Bruits Lungs: Air entry diminished in bilateral lung bases. Bilateral fine crackles present. Patient was on 8 L of oxygen in the morning decreased to 3 L. Cardiovascular: Regular rate, Regular Rhythm, Normal S1, Normal S2, No murmurs Abdomen: Status post PEG tube. Chronic dysphagia. Bowel Sounds Present, Soft, Non Tender, Non-Distended : No renal angle tenderness. No suprapubic tenderness. Extremities: No edema, Capillary Refill Less than 3 Seconds Skin: No rashes, No breakdown Musculoskeletal: No Tenderness to Palpation of Joints or Extremities Neurological: Cranial nerves II-XII grossly intact, DTR 2+/4 and Symmetrical, Neuro grossly intact Psych/Mental Status: Normal Affect, Appropriate. Assessment & Plan Assessment/Plan (1) Pneumonitis: PLAN: Plan The patient is a 66 y/o M with history of esophageal CA w/ mets to lung was admitted with 2-week history of cough and dyspnea with no fever or marked sputum production or pleuritic chest pain with chest x-ray the day showing small pleural effusions and a CT performed outpatient with evidence of pneumonitis suggestive of immunotherapy induced pneumonitis #1. 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 On IV Solu-Medrol. Oxygen therapy. DuoNeb as needed. If patient oxygenation and shortness of breath improves will discharge on prednisone 60 mg daily I suspect prolonged taper course and follow- up with oncologist Dr. Olson. Viral respiratory panel, urinary antigens are negative. Procalcitonin 0.18. #2. Esophageal cancer with metastatic disease to the lung as well as upper abdominal lymph nodes with associated chronic dysphagia following operative intervention: Continue home tube feed regimen. Marine Operations Coordinator consult. Speech therapy consult. #3. 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 #4. Hypertension: Continue home regimen including benazepril, amlodipine, PRN hydralazine. #5. Hyperlipidemia: Continue home statin regimen. #6. Diabetes mellitus type II with neuropathy: Hold oral home regimen, ADA diet dysphagia diet and tube feed, Accu-Chek SNS coverage Humalog sliding scale continue patient on gabapentin regimen. #7. History CVA: continue patient home Plavix, statin, hypertensive regimen as noted as well as diabetic regimen with alterations. #8. Restless leg syndrome: Per current list not on regimen but if necessary may add Requip. #9. Former tobacco use: Encourage continued tobacco cessation. #10. Hx VTE: Hx DVT, PE following port placement per discussion with Dr. Olson, continue home eliquis regimen. #11. GERD: We will continue patient home PPI. #12. ZAC: CPAP nightly. #13. DVT Prophylaxis: SCDs, continue home eliquis regimen. #14. CODE status: full code. CODE STATUS was addressed by admitting hospitalist at time of admission. Charges/Coding Visit Charges Inpatient E&M: 40442 Subs Hosp L2
--- NOTE | 2022-01-16 14:10 | CASEMGMT ---
MANJINDER DEVINE S[employer] NILSON to room to meet with patient for initial transition planning/care coordination assessment. MANJINDER DEVINE introduced self and role at [facility].? Pt voices understanding and consents to assessment at this time.? Pt sitting on edge of bed in no distress at this time.? @ bedside. Pt is A/O at this time and answers all questions appropriately.?? Care providers, pharmacy, and demographics verified/updated at this time.? PCP:?Dr Cohen Specialists:?Dr Olson-oncology, Dr Ledbetter-[facility]ology in [place] Preferred Pharmacy:?[facility] Insurance:?MMO MCR Prescription Benefit:?yes Living Will/HPOA:??Pt does not currently have LW/HCPOA. Aware SW unavailable to meet w/him this weekend and if he would like to complete as an OP, appt can be made w/SW. Has SW rac card w/contact info. LNOK:?, Juliana Peralta. 2 children Living Arrangements: Lives w/ in 2-story home. Bedroom and bathroom on 2nd floor and bathroom on main floor. Denies difficulty w/stairs. Independent. manages medications and home mgnt tasks. ? Transportation:?Pt states drives self and states no transportation concerns at this time.?? also drives. DME: States has the following DME: BIPAP. Has a glucometer, but states it is not working properly and pt needs a new one. Pt does not have a pulse ox and does not have home O2. Provided w/list of local DME companies and made aware [employer] affiliated w/[facility]. Pt/ choose [employer]. They were made aware of home O2 process, should pt qualify for O2 @ d/c. HHC/SNF:?No hx of either. No needs identified. Pt wishes to return home and states has no concerns with going home at time of discharge.??Pt and voice no further concerns/needs at this time.? PLAN:?Home w/. Follow for possible Home O2. Green sheet placed on chart for glucometer, O2 and pulse ox, should pt qualify for Home O2. Script for glucometer placed on chart for physician signature and to be given to pt @ d/c Marilin WHALEN RN, CM?
[2022-01-16] MEDS: Ipratropium/Albuterol Sulfate 3 ML AMPUL.NEB INHALATION ×2 (15:47→20:47)
[2022-01-16 16:50] LABS: Bedside Glucose 289 mg/dL (74-106)
[2022-01-16] MEDS: Atorvastatin Calcium 20 MG Tablet PO (21:11)
[2022-01-16 21:36] LABS: Bedside Glucose 349 mg/dL (74-106)
[2022-01-17] VITALS (8 sets, daily range): BP systolic 109–122; BP diastolic 82–84; PULSE 59–88; RESP 18–22; TEMP 36.3–36.6; O2SAT 84–92
[2022-01-17] MEDS: Levothyroxine 50 MCG Tablet PO (06:02)
[2022-01-17] MEDS: Insulin Lispro 100 UNIT/ML INSULN.PEN SC ×2 (06:08→11:35)
[2022-01-17 07:35] LABS: Bedside Glucose 245 mg/dL (74-106)
[2022-01-17] MEDS: Ipratropium/Albuterol Sulfate 3 ML AMPUL.NEB INHALATION ×2 (07:57→11:18)
--- NOTE | 2022-01-17 08:01 | PN.HOSP_ITS ---
Subjective Subjective Breathing well. Ready to go home. Objective Data Objective Data Vital Signs: Vital Signs Temp Pulse Resp BP Pulse Ox O2 Del Method O2 Flow Rate 36.4 C L 88 20 H 118/84 H 91 Nasal Cannula 4 01/17/22 07:33 01/17/22 07:58 01/17/22 07:58 01/17/22 07:33 01/17/22 08:00 01/17/22 08:00 01/17/22 08:00 FiO2 40 01/16/22 01:01 Oxygen Flow Rate (L/min) [ 5 AMBULATING with Oxygen #2] Oxygen Flow Rate (L/min) [ 2 AMBULATING with Oxygen #1] Oxygen Flow Rate (L/min) [At 2 REST with Oxygen] Oxygen Flow Rate (L/min) [At 0 REST on Room Air] Oxygen Flow Rate (L/min) 4 Oxygen Delivery Method Nasal Cannula Weight: 69.5 kg Body Mass Index (BMI) 22.3 Intake & Output: Intake and Output for Last 24 Hours 01/15/22 01/16/22 01/17/22 23:59 23:59 23:59 Intake Total 900 / 1200 450 / 450 Balance 900 / 1200 450 / 450 Lab / Micro Data Result Diagrams: 01/16/22 06:54 01/16/22 06:54 Labs: Laboratory Results - last 24 hr 01/16/22 06:54: Diff Path Review June, Platelet Estimate ADEQUATE, Anisocytosis 1+, Macrocytosis 1+ 01/16/22 06:54: Sodium 140, Potassium 4.0, Chloride 108 H, Carbon Dioxide 27.0, Anion Gap 5, BUN 22 H, Creatinine 0.61 L, Estim Creat Clear Calc 73.58, Est GFR (MDRD) Af Amer 168, Est GFR (MDRD) Non-Af 139, BUN/Creatinine Ratio 35.8 H, Glucose 300 H, Calcium 9.3, Total Bilirubin 0.40, AST 25, ALT 39, Alkaline Phosphatase 224 H, Total Protein 7.0, Albumin 2.6 L, Globulin 4.4 H, Albumin/Globulin Ratio 0.6 L 01/16/22 11:57: POC Glucose 239 H 01/16/22 16:20: POC Glucose 289 H 01/16/22 21:07: POC Glucose 349 H 01/17/22 06:07: POC Glucose 245 H Micro: Microbiology 01/16/22 00:49 Urine, Clean Catch Legionella Antigen - Final 01/16/22 00:49 Urine, Clean Catch Streptococcus pneumoniae Antigen (M - Final 01/15/22 16:15 Mucosa - Nasopharyngeal Respiratory Panel (PCR) - Final 01/15/22 16:15 Nasal Secretion SARS-CoV-2 Antigen (Rapid) - Final Physical Exam Const alert and no apparent distress Resp normal respiratory effort, no retractions, no use of accessory muscles and clear to auscultation bilaterally Cardio regular rate, regular rhythm, S1 normal heart sound and S2 normal heart sound GI normal to inspection, nondistended, normoactive bowel sounds and soft to palpation Assessment & Plan Assessment/Plan (1) Pneumonitis: PLAN: Acute pneumonitis due to 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 On IV Solu-Medrol. Oxygen therapy. DuoNeb as needed. If patient oxygenation and shortness of breath improves will discharge on prednisone 60 mg daily I suspect prolonged taper course and follow- up with oncologist Dr. Olson. Viral respiratory panel, urinary antigens are negative. Procalcitonin 0.18. Still requiring oxygen. Will dc home. PLAN: Plan Chronic conditions: * Esophageal cancer with metastatic disease to the lung as well as upper abdominal lymph nodes with associated chronic dysphagia following operative intervention: Continue home tube feed regimen. Sampler Radioactive Waste consult. Speech therapy consult. * Chronic macrocytic anemia due to chemotherapy/immunotherapy/neoplastic anemia: Admission hemoglobin 12.5, MCV 100.3, hemoglobin has been on baseline. * Hypertension: Continue home regimen including benazepril, amlodipine, PRN hydralazine. * Hyperlipidemia: Continue home statin regimen. * Diabetes mellitus type II with neuropathy: Hold oral home regimen, ADA diet dysphagia diet and tube feed, Accu-Chek SNS coverage Humalog sliding scale continue patient on gabapentin regimen. * History CVA: continue patient home Plavix, statin, hypertensive regimen as noted as well as diabetic regimen with alterations. * Restless leg syndrome: Per current list not on regimen but if necessary may add Requip. * Former tobacco use: Encourage continued tobacco cessation. * Hx VTE: Hx DVT, PE following port placement per discussion with Dr. Olson, continue home eliquis regimen.GERD: We will continue patient home PPI. * ZAC: CPAP nightly. DVT Prophylaxis: SCDs, continue home eliquis regimen. CODE status: full code. CODE STATUS was addressed by admitting hospitalist at time of admission.
[2022-01-17] MEDS: Pantoprazole Sodium 40 MG Tablet PO (10:15)
[2022-01-17] MEDS: Metoclopramide 10 MG/10 ML UDC PO (10:15)
[2022-01-17] MEDS: Lisinopril 20 MG Tablet PO (10:15)
[2022-01-17] MEDS: APIXABAN 5 MG TABLET PO (10:15)
--- NOTE | 2022-01-17 10:23 | DS.PCM_ITS ---
Providers Date of Admission: 01/15/22 Primary Care Physician: Dr. 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 On IV Solu-Medrol. Oxygen therapy. DuoNeb as needed. If patient oxygenation and shortness of breath improves will discharge on prednisone 60 mg daily I suspect prolonged taper course and follow-up with oncologist Dr. Olson. Viral respiratory panel, urinary antigens are negative. Procalcitonin 0.18. Still requiring oxygen. Will dc home. Plan Chronic conditions: * Esophageal cancer with metastatic disease to the lung as well as upper abdominal lymph nodes with associated chronic dysphagia following operative intervention: Continue home tube feed regimen. Enterprise Application Analyst consult. Speech therapy consult. * Chronic macrocytic anemia due to chemotherapy/immunotherapy/neoplastic anemia: Admission hemoglobin 12.5, MCV 100.3, hemoglobin has been on baseline. * Hypertension: Continue home regimen including benazepril, amlodipine, PRN hydralazine. * Hyperlipidemia: Continue home statin regimen. * Diabetes mellitus type II with neuropathy: Hold oral home regimen, ADA diet dysphagia diet and tube feed, Accu-Chek SNS coverage Humalog sliding scale continue patient on gabapentin regimen. * History CVA: continue patient home Plavix, statin, hypertensive regimen as noted as well as diabetic regimen with alterations. * Restless leg syndrome: Per current list not on regimen but if necessary may add Requip. * Former tobacco use: Encourage continued tobacco cessation. * Hx VTE: Hx DVT, PE following port placement per discussion with Dr. Olson, continue home eliquis regimen.GERD: We will continue patient home PPI. * ZAC: CPAP nightly. DVT Prophylaxis: SCDs, continue home eliquis regimen. CODE status: full code. CODE STATUS was addressed by admitting hospitalist at time of admission. Medications at Discharge Home Medications metformin 500 mg tablet 1,000 mg PO BIDCM BLOOD SUGAR 06/02/15 apixaban 5 mg tablet (Eliquis) 5 mg PO DAILY BLOOD THINNER 01/15/22 benazepril 20 mg tablet 20 mg PO DAILY BLOOD PRESSURE 01/15/22 empagliflozin 25 mg tablet (Jardiance) 25 mg PO DAILY DM 01/15/22 glipizide 5 mg tablet, extended release 24 hr 5 mg PO DAILY BLOOD SUGAR 01/15/22 levothyroxine 50 mcg tablet 50 mcg PO DAILY THYROID 01/15/22 lovastatin 40 mg tablet 40 mg PO DAILY CHOLESTEROL 01/15/22 metoclopramide HCl 5 mg/5 mL oral solution 10 mg PO Q6H NAUSEA 01/15/22 omeprazole 40 mg capsule,delayed release 40 mg PO DAILY GERD 01/15/22 prednisone 20 mg tablet 60 mg PO DAILY 1 month #90 tabs 01/17/22 Hospital Course Operations None Procedures None Summary of Care Provided Minutes Spent on Discharge: 32 Hospital Course: 66-year-old presents with shortness of breath. Patient underwent infectious work-up that was negative. [place] to be pneumonitis due to immunotherapy. Patient started on methylprednisolone and over improved. Case had been previously discussed with Dr. Olson, recommends prednisone 60 mg and then follow-up with oncology and short course. Patient was ambulated and did require 4 L of oxygen with rest and activity. Weight / BMI Weight Weight: 69.5 kg Body Mass Index (BMI) 22.3 ABG / Lab / Microbiology Data Result Diagrams: 01/16/22 06:54 01/16/22 06:54 Laboratory: Laboratory Results - last 24 hr 01/16/22 11:57: POC Glucose 239 H 01/16/22 16:20: POC Glucose 289 H 01/16/22 21:07: POC Glucose 349 H 01/17/22 06:07: POC Glucose 245 H Microbiology: Microbiology 01/16/22 00:49 Urine, Clean Catch Legionella Antigen - Final 01/16/22 00:49 Urine, Clean Catch Streptococcus pneumoniae Antigen (M - Final 01/15/22 16:15 Mucosa - Nasopharyngeal Respiratory Panel (PCR) - Final 01/15/22 16:15 Nasal Secretion SARS-CoV-2 Antigen (Rapid) - Final D/C Instructions Discharge Diet: No restrictions Call your doctor if you observe: Shortness of breath Meaningful Use Info Meaningful Use Diagnoses (Choose all that apply): None applicable Discharge Plan Admission Admit Date/Time: 01/15/22 16:14 Primary Reason for Your Visit: pneumonitis Attending Provider: Naif Mirza Primary Care Provider: Job Cohen Consulting Providers: Nicole Leiva ; Mino Yan Discharge Orders/Prescriptions Prescriptions: New prednisone 20 mg tablet 60 mg PO DAILY 30 Days Qty: 90 0RF Continued metformin 500 MG tablet 1,000 mg PO BIDCM Label Comments: BLOOD SUGAR lovastatin 40 mg tablet 40 mg PO DAILY Label Comments: Take 1 tablet by mouth daily at bedtime. metoclopramide HCl 5 mg/5 mL solution 10 mg PO Q6H Label Comments: Take 10 mL by mouth every 6 hours as needed. glipizide 5 mg tablet extended release 24hr 5 mg PO DAILY Label Comments: TAKE 1 TABLET BY MOUTH ONCE DAILY omeprazole 40 mg capsule,delayed release(DR/EC) 40 mg PO DAILY Label Comments: Take 1 capsule by mouth once daily. levothyroxine 50 mcg tablet 50 mcg PO DAILY Label Comments: Take 1 tablet by mouth once daily. on an empty stomach. benazepril 20 mg tablet 20 mg PO DAILY Label Comments: TAKE 1 TABLET BY MOUTH DAILY Eliquis 5 mg tablet 5 mg PO DAILY Label Comments: TAKE 1 TABLET BY MOUTH TWICE DAILY Jardiance 25 mg tablet 25 mg PO DAILY Label Comments: Take 1 (ONE) tablet once daily in the morning Referrals / Follow Up: Bon Olson DO [Med Staff - Active Staff] - Within 1 Week Job Cohen MD [Primary Care Provider] - Within 2 Weeks Disposition Disposition (needs filled in before D/C Order can be placed): Home, Self Care Charges/Coding Visit Charges Inpatient E&M: 19851 Disch Hosp
[2022-01-17 12:05] LABS: Bedside Glucose 364 mg/dL (74-106)
[2022-01-17] MEDS: 0.9% Saline Lock 10 ML Syringe IV (12:46)
[2022-01-18 11:30] LABS: Bedside Glucose 288 mg/dL (74-106)
[2022-01-18 11:30] LABS: Bedside Glucose 300 mg/dL (74-106)
[2022-01-18 14:17] LABS: Pathologist Review Reviewed
== END 2022-01-17 13:05 | disposition home or self-care (01) | DRG 206 ==
LOC: ED 16:41 → MS3 16:46
PROVIDERS: Internal Medicine; Admitting Provider Family Medicine; Emergency Provider Emergency Medicine; PCP Internal Medicine
DX: J70.2 Acute drug-induced interstitial lung disorders (principal); C15.9 Malignant neoplasm of esophagus, unspecified; C78.00 Secondary malignant neoplasm of unspecified lung; E11.42 Type 2 diabetes mellitus with diabetic polyneuropathy; D64.9 Anemia, unspecified; Z93.1 Gastrostomy status; E78.5 Hyperlipidemia, unspecified; K21.9 Gastro-esophageal reflux disease without esophagitis; I10 Essential (primary) hypertension; G47.33 Obstructive sleep apnea (adult) (pediatric); G25.81 Restless legs syndrome; T45.1X5A Adverse effect of antineoplastic and immunosuppressive drugs, initial encounter; Z87.891 Personal history of nicotine dependence; Z86.73 Personal history of transient ischemic attack (TIA), and cerebral infarction without residual deficits; N40.0 Benign prostatic hyperplasia without lower urinary tract symptoms
CPT/HCPCS: 36415; 36591; 80048; 80053; 82962; 83735; 83880; 84100; 84145; 85025; 87449; 87633; 87811; 92507; 92610; 93005; 94002; 94640; 94762; 97802; 99285; A4216

== ENCOUNTER → 2022-04-26 | Outpatient (CLI) | payer MEDICARE, SELFPAY ==
--- NOTE | 2022-04-26 | IMM_PTH ---
PATIENT: ELLIE BAINS LOC: [facility]#:[id number] AGE/SX: 66/M ROOM: RE04/26/[address]: Dr. Bon Olson DO : 1955 BED: DIS: 04/26/2022 SPEC #: [id number] RECD: 04/27/22 10:47 STATUS: HAYES REQ #: [id number] ESTEFANÍA: 04/26/22 00:[address]: Bon Olson DEPT: IMMUNOHISTOCHEMISTRY RECD BY: Charley Jordan ENTERED: 04/27/22 10:49 SP TYPE: IMMUNO OTHR DR: Dr. Job Cohen MD Tissues: PARACENTESIS FLUID Procedures: RCC (add) NAPSIN A (add) Nestor Ret (add) CK20 (add) CK5-6 (add) CK7 (add) CK8 (add) HEP PAR (add) TTF1 (add) Vimentin (add) Pankeratin (initial) P40 (add) PSAP (add) PHYSICIAN & [address] [address] SPECIMEN INFORMATION: Tissue Source: Paracentesis Clinical Info: Ascites Specimen Number: [id number] CPT code: 56354, 46611 x12 METHODOLOGY: Deparaffinized sections of prefer/formalin-fixed tissue or PAP/DQ stained slides are incubated with monoclonal/polyclonal antibodies/oligonucleotide probes. Localization is made via biotin free immunoperoxidase method. Appropriate controls are performed and reacted as expected. Results on target cell population are indicated in the following table: RESULTS: ANTIBODY / CLONE RESULT AE1-3 (AE1/AE3/PCK26) positive CK7 (OV-TL12/30) positive CK8 (23yrroN51) positive CK20 (KS20.8) negative Vimentin (V9) negative TTF-1 (8G7G3/1) negative Napsin A (Rabbit Polyclonal) negative HepPar (OCh1E5) negative RCC (PN-15) negative PSAP (PASE/4LJ) negative CALRET (polyclonal) negative CK5-6 (D5 & 1684) negative P40 (BC28) negative These tests were developed and their performance characteristics determined by [facility]. They may not have been cleared or approved by the U.S. Food and Drug Administration. The FDA has determined that such clearance or approval is not necessary. The above immunohistochemical/dualISH markers are ordered and reviewed by the Pathologist. INTERPRETATION: Paracentesis (cell block): Malignant cells present derived from metastatic adenocarcinoma. See comment. SJ:erica 04/28/2022 Comment: IHC profile is compatible with clinical impression of esophageal primary.
--- NOTE | 2022-04-26 | FLU_PTH ---
PATIENT: ELLIE BAINS LOC: [facility]#:[id number] AGE/SX: 66/M ROOM: RE04/26/[address]: Dr. Bon Olson DO : 1955 BED: DIS: 04/26/2022 SPEC #: [id number] RECD: 04/26/22 10:05 STATUS: HAYES EMERY #: [id number] ESTEFANÍA: 04/26/22 00:[address]: Bon Olson DEPT: CYTOLOGY RECD BY: Makayla Rivera ENTERED: 04/26/22 10:06 SP TYPE: Fluid OTHR DR: Dr. Job Cohen MD Tissues: PARACENTESIS FLUID Procedures: Special Stain Group II Mucicarmine Stain (control) Surgery Specimen Level IV Cytospin Fluid HEADER OPERATION: Paracentesis PRE-OP DIAGNOSIS: Ascites TISSUE SUBMITTED: Paracentesis fluid for cytology DIAGNOSIS CYTOLOGY Paracentesis fluid for cytology (cytospin and cell block): Malignant cells present derived from metastatic adenocarcinoma. See comment. SJ:erica 04/27/2022 COMMENT Mucin stain with matched control is used in the evaluation of the specimen. Rare tumor cells are positive for mucin. Immunohistochemistry ([id number]) supports the above diagnosis and compatible with clinical impression of esophageal primary. Correlation with clinical findings and appropriate follow up are necessary. CYTOLOGY STUDY Slides are reviewed. CYTOLOGY GROSS Received is 80 ml of yellow cloudy fluid labeled with the patient's name and and designated per the requisition as paracentesis. Submitted for cytology preparation including cell block. / erica 04/26/2022 TC:0 CPT: 36156, 38688, 50846
--- NOTE | 2022-04-26 07:57 | US_ITS ---
PROCEDURE: ULTRASOUND GUIDED PARACENTESIS CLINICAL HISTORY: Male, 66 years old. ASCITES CONSENT: Informed consent obtained Time-Out Called: Yes. Consent form signed: Yes. PT-PTT Levels Checked: Yes. SEDATION: Local with 1% Xylocaine TECHNIQUE: Ultrasound-guided FINDINGS: After informed consent was obtained including risks and benefits and possible bowel perforation with needle, appropriate site for ultrasound-guided paracentesis was determined. The area was prepped and draped in a sterile manner and 1% Xylocaine was used as local anesthetic. Under sonographic guidance, a Yeuh drainage catheter was advanced into the peritoneal cavity and approximately 100 mL of straw-colored serous fluid was withdrawn per the attending physicians orders and sent to lab for analysis. Patient tolerated the procedure well with no immediate complications FLUID POST-PROCEDURE Amount of fluid drained: 100 ml. US/Paracentesis with US IMPRESSION: Successful ultrasound-guided diagnostic paracentesis Electronically Signed: Aquilino Calderon MD at 9:11 EDT ,
[2022-04-26] MEDS: Lidocaine 2% (20 ml mdv) 20 ML Vial INFILT (08:35)
[2022-04-26 08:55] VITALS: BP 127/75; BP 131/83; BP 142/82; PULSE 104; PULSE 94; PULSE 99; RESP 18; RESP 20; TEMP 36.2; O2SAT 94
== END | disposition home or self-care (01) ==
LOC: US 07:56
PROVIDERS: PCP Internal Medicine; Visit Provider Internal Medicine Hematology & Oncology
DX: C15.5 Malignant neoplasm of lower third of esophagus (principal); R18.0 Malignant ascites; J90 Pleural effusion, not elsewhere classified
CPT/HCPCS: 49083; 88108; 88305; 88313; 88341; 88342

== ENCOUNTER 2022-05-17 14:38 | Emergency (ER) | payer MEDICARE, SELFPAY ==
[2022-05-17] VITALS (8 sets, daily range): BP systolic 79–108; BP diastolic 60–86; PULSE 63–99; RESP 10–20; TEMP 36.1; O2SAT 89–98; BMI 25.4
--- NOTE | 2022-05-17 15:21 | EKG12_ITS ---
Test Reason : LOW BP Blood Pressure : / mmHG Vent. Rate : 090 BPM Atrial Rate : 090 BPM P-R Int : 150 ms QRS Dur : 088 ms QT Int : 404 ms P-R-T Axes : 047 -46 096 degrees QTc Int : 494 ms Sinus rhythm with Premature supraventricular complexes Left axis deviation Low voltage QRS Septal infarct , age undetermined Possible Lateral infarct , age undetermined Inferior infarct , age undetermined Abnormal ECG Confirmed by CHE SOARES, DANIEL ([id number]), communications editor LIBAN PARSONS ([id number]) on 05/19/2022 9:48:44 AM Referred By: Confirmed By:VALERIE BOLTON MD
--- NOTE | 2022-05-17 15:22 | CT_ITS ---
STUDY: CT ABDOMEN AND PELVIS WITHOUT CONTRAST REASON FOR EXAM: Male, 66 years old. Abdominal pain. RADIATION DOSAGE (If Supplied By Facility): CTDIvol = ( 10.50 ) mGy, DLP = ( 613.73 ) mGycm TECHNIQUE: Transaxial images were obtained from the dome of the diaphragm to the symphysis pubis without oral contrast, and without intravenous contrast. Sagittal and coronal images were reconstructed. Individualized dose optimization techniques were used for this CT. COMPARISON: CT of the chest, August 13, 2021. FINDINGS: There are now bilateral small pleural effusions with atelectasis. The visualized portions of the heart are within normal limits. There is marked coronary artery calcifications. There is absence of the markedly thickened/dilated esophagus noted on the previous examination. The liver is normal in size and contour. There are multiple rounded ill-defined hypodensities suspicious for metastatic disease which were not noted on the previous examination. There appears to be recannulization of the umbilical vein. Normal gallbladder and extrahepatic biliary system. Normal spleen. There is diffuse atrophy of the pancreas. Normal bilateral adrenal glands. Normal right kidney. There is a 5.6 cm exophytic cyst off the upper pole of the left kidney. This contains coarse peripheral calcifications along its inferior margin. The left kidney is otherwise unremarkable. Normal visualized ureters. The stomach is poorly distended but otherwise grossly normal. Normal small intestine. Normal colon. The appendix is not clearly identified. There is diffuse atherosclerotic calcification of the abdominal aorta, without a demonstrated aneurysm. Normal inferior vena cava. Normal retroperitoneum. Normal urinary bladder. Unremarkable prostate. There is diffuse ascites within the abdominal cavity without free air. No pelvic lymphadenopathy. Bilateral inguinal hernias of omental fat. The abdominal wall is otherwise grossly normal. There are diffuse degenerative changes of the visualized lumbar spine and hips. CT/Abdomen/Pelvis without Cont IMPRESSION: 1. Small bilateral pleural effusions and atelectasis not seen on the previous chest film. 2. Vague low attenuation masses throughout the liver suspicious for metastatic disease. This is also a new finding. 3. Diffuse ascites. 4. Degenerative changes of lumbar spine and hips. 5. Stable left renal cyst. Electronically Signed: Rd Michael DO at 17:38 EDT Reading Location ID and State: [address] [place] [address] Tel [phone], Service support ,
--- NOTE | 2022-05-17 15:23 | EX.ED.DYSGE1 ---
HPI History of Present Illness Chief Complaint: Hypotension Narrative Narrative: Patient has a history of esophageal cancer he has had 1 round of chemotherapy and is developed ascites she was placed on Lasix about a week ago for his ascites, he went to get chemotherapy today was found to be somewhat hypotensive and was sent to the emergency department. Patient does have abdominal pain but has had the same abdominal pain for the past month or so and it has not changed. There is no documented fevers or chills and the patient is denying feeling febrile. He has no rash, no back pain. He has no confusion. [facility] Medical History Acute cerebrovascular accident BPH (benign prostatic hyperplasia) CVA (cerebral vascular accident) Cystic kidney disease Diabetes Erectile dysfunction Esophagus cancer Fatty liver disease, nonalcoholic HTN (hypertension) Hyperlipidemia Lung cancer Nocturnal leg cramps Other psoriasis PVC (premature ventricular contraction) Restless leg syndrome Sleep apnea Type 2 diabetes mellitus Unilateral inguinal hernia, without obstruction or gangrene, recurrent Ventricular arrhythmia Home Medications metformin 500 mg tablet 1,000 mg PO BIDCM BLOOD SUGAR 06/02/15 [History Last Taken 01/15/22] apixaban 5 mg tablet (Eliquis) 5 mg PO DAILY BLOOD THINNER 01/15/22 [History Last Taken 01/15/22] benazepril 20 mg tablet 20 mg PO DAILY BLOOD PRESSURE 01/15/22 [History Last Taken 01/14/22] empagliflozin 25 mg tablet (Jardiance) 25 mg PO DAILY DM 01/15/22 [History Last Taken 01/15/22] glipizide 5 mg tablet, extended release 24 hr 5 mg PO DAILY BLOOD SUGAR 01/15/22 [History Last Taken 01/15/22] levothyroxine 50 mcg tablet 50 mcg PO DAILY THYROID 01/15/22 [History Last Taken 01/15/22] lovastatin 40 mg tablet 40 mg PO DAILY CHOLESTEROL 01/15/22 [History Last Taken 01/14/22] metoclopramide HCl 5 mg/5 mL oral solution 10 mg PO Q6H NAUSEA 01/15/22 [History Last Taken 01/15/22] omeprazole 40 mg capsule,delayed release 40 mg PO DAILY GERD 01/15/22 [History Last Taken 01/15/22] prednisone 20 mg tablet 60 mg PO DAILY 1 month #90 tabs 01/17/22 [Rx Last Taken Unknown] Allergy/AdvReac Type Severity Reaction Status Date / Time pollen extracts Allergy Swelling Verified 05/17/22 14:40 Family History Father Heart disease Mother Heart disease Surgical History History of gastric surgery S/P laparoscopic hernia repair S/P percutaneous endoscopic gastrostomy (PEG) tube placement Social History household members: spouse Smoking Status: Former smoker how long ago did patient quit smoking: Quit ~ 15 years prior, smoked cigars prior intermittently. alcohol intake: never substance use type: does not use ROS ROS ED ROS Narrative Past medical history: Reviewed Medications: Reviewed Social history: Noncontributory Review of systems: General: No fever, there is some generalized weakness Eyes: No visual changes ENT: No upper airway congestion, normal voice Neck: No neck pain Cardiovascular: No chest pain Respiratory: Chronic dyspnea but no change Gastrointestinal: Abdominal pain for about a month, has not changed. No nausea vomiting or diarrhea. Genitourinary: No dysuria Musculoskeletal: Denies myalgias. Skin: No rash Neurological: No memory loss, confusion or any focal weakness EXAM Physical Exam Narrative Exam Narrative: Physical exam General: Patient appears chronically ill. He does not appear in significant distress currently Head: Normocephalic, Atraumatic Eyes: Conjunctiva slightly pale ENT: Dry mucous membranes Neck: Supple, Nontender, No lymphadenopathy Cardiovascular: Regular rate, Regular rhythm Respiratory: No distress, CTA bilaterally Abdomen: Soft, minimal distention some tenderness throughout. He does have bowel sounds. I cannot appreciate a fluid wave. Back: Nontender, Normal Inspection. Negative for: CVA tenderness Extremities: Nontender, No edema Skin: Slightly pale Neurological: Alert, Normal Strength, Normal Sensation Const Vital Signs: 05/17/22 14:40 05/17/22 14:58 05/17/22 15:01 Temperature 96.9 F L Temperature Source Temporal Pulse Rate 63 95 Respiratory Rate 10 L 20 H Respiratory Effort Normal Respiratory Pattern Normal Blood Pressure 79/64 L 95/60 Blood Pressure Mean 69 71 Pulse Ox 89 97 Oxygen Delivery Method Room Air Room Air 05/17/22 15:40 05/17/22 16:40 05/17/22 18:09 Temperature Temperature Source Pulse Rate 88 88 77 Respiratory Rate 18 16 16 Respiratory Effort Respiratory Pattern Blood Pressure 95/76 96/60 96/71 Blood Pressure Mean 82 72 79 Pulse Ox 97 98 97 Oxygen Delivery Method Room Air 05/17/22 19:17 05/17/22 20:42 Temperature Temperature Source Pulse Rate 99 83 Respiratory Rate 18 15 Respiratory Effort Respiratory Pattern Blood Pressure 99/72 106/86 H Blood Pressure Mean 81 92 Pulse Ox 96 Oxygen Delivery Method Room Air MDM MDM MDM Narrative Medical decision making narrative: A. Problems addressed; Patient was hypotensive this is likely due to dehydration duration especially that he has been laced on Lasix and he has had decreased p.o. intake recently. His blood pressure is much improved after IV fluids his lactic acid is also improved I do not believe his lactic acidosis is secondary to infection is likely secondary to dehydration. I had a long discussion with the patient, his and oncology Dr. Olson, he would like to have chemotherapy tomorrow which is reasonable if I were to admit he would miss chemotherapy and he would like to get treatment underway right away. He did improve although he still feels weak but able to go home. Patient has no signs or symptoms of infection at this time. B. Amount and/or complexity of the data 1. CBC CMP and lactate were interpreted by me I discussed with the patient's 2. Independent interpretation of test Telemetry: Sinus rhythm with a rate in the 90s with PVCs 3. Discussion of management with Dr. Olson his oncologist C. Risk of complications and/or morbidity Differential diagnosis: See above Lab Data Labs: Laboratory Results - last 24 hr 05/17/22 05/17/22 05/17/22 15:35 15:35 15:35 WBC 4.3 L RBC 5.29 Hgb 13.9 Hct 44.8 MCV 84.7 MCH 26.3 L MCHC 31.0 L RDW Std Deviation 69.3 H RDW Coeff of Chuck 23.9 H Plt Count 126 L MPV 10.1 Immature Gran % (Auto) 0.900 Neut % (Auto) 72.6 H Lymph % (Auto) 4.9 L Ada % (Auto) 18.3 H Eos % (Auto) 2.6 Baso % (Auto) 0.7 Absolute Neuts (auto) 3.1 Absolute Lymphs (auto) 0.21 L Nucleated RBC % 1.4 Differential Comment SCANNED Diff Path Review May foll Anisocytosis 2+ Sodium 140 Potassium 4.0 Chloride 110 H Carbon Dioxide 22.0 Anion Gap 8 BUN 36 H Creatinine 1.42 H Estim Creat Clear Calc 50.48 Est GFR (MDRD) Af Amer 64 Est GFR (MDRD) Non-Af 53 L BUN/Creatinine Ratio 25.4 H Glucose 147 H Lactic Acid 3.0 H* Calcium 8.9 Total Bilirubin 0.80 AST 25 ALT 22 Alkaline Phosphatase 494 H Total Protein 5.8 L Albumin 2.2 L Globulin 3.6 Albumin/Globulin Ratio 0.6 L Lipase 26 L 05/17/22 05/17/22 17:35 20:49 WBC RBC Hgb Hct MCV MCH MCHC RDW Std Deviation RDW Coeff of Chuck Plt Count MPV Immature Gran % (Auto) Neut % (Auto) Lymph % (Auto) Ada % (Auto) Eos % (Auto) Baso % (Auto) Absolute Neuts (auto) Absolute Lymphs (auto) Nucleated RBC % Differential Comment Diff Path Review Anisocytosis Sodium Potassium Chloride Carbon Dioxide Anion Gap BUN Creatinine Estim Creat Clear Calc Est GFR (MDRD) Af Amer Est GFR (MDRD) Non-Af BUN/Creatinine Ratio Glucose Lactic Acid 2.5 H* 2.1 H* Calcium Total Bilirubin AST ALT Alkaline Phosphatase Total Protein Albumin Globulin Albumin/Globulin Ratio Lipase Radiography Diagnostic Testing: Clinical Impression(s) from Imaging Studies Abdomen/Pelvis CT 05/17/22 15:22 IMPRESSION: 1. Small bilateral pleural effusions and atelectasis not seen on the previous chest film. 2. Vague low attenuation masses throughout the liver suspicious for metastatic disease. This is also a new finding. 3. Diffuse ascites. 4. Degenerative changes of lumbar spine and hips. 5. Stable left renal cyst. Electronically Signed: Rd Michael DO at 17:38 EDT Reading Location ID and State: [facility] / [place] Tel [phone], Service support , Chest X-Ray 05/17/22 16:08 IMPRESSION: 1. No acute cardiopulmonary disease. 2. Left Port-A-Cath. Electronically Signed: Rd Michael DO at 17:27 EDT Reading Location ID and State: [address] [place] [address] Tel [phone], Service support , EKG Initial EKG: Comments: Sinus rhythm with a rate in the 90s. Left axis deviation, nonspecific septal and inferior changes. Discharge Plan Triage Chief Complaint: Hypotension ED Provider: Bon Montoya Dx/Rx/DC Orders Clinical Impression: Esophageal cancer, Dehydration, Azotemia Prescriptions: No Action metformin 500 MG tablet 1,000 mg PO BIDCM Label Comments: BLOOD SUGAR lovastatin 40 mg tablet 40 mg PO DAILY Label Comments: Take 1 tablet by mouth daily at bedtime. metoclopramide HCl 5 mg/5 mL solution 10 mg PO Q6H Label Comments: Take 10 mL by mouth every 6 hours as needed. glipizide 5 mg tablet extended release 24hr 5 mg PO DAILY Label Comments: TAKE 1 TABLET BY MOUTH ONCE DAILY omeprazole 40 mg capsule,delayed release(DR/EC) 40 mg PO DAILY Label Comments: Take 1 capsule by mouth once daily. levothyroxine 50 mcg tablet 50 mcg PO DAILY Label Comments: Take 1 tablet by mouth once daily. on an empty stomach. benazepril 20 mg tablet 20 mg PO DAILY Label Comments: TAKE 1 TABLET BY MOUTH DAILY Eliquis 5 mg tablet 5 mg PO DAILY Label Comments: TAKE 1 TABLET BY MOUTH TWICE DAILY Jardiance 25 mg tablet 25 mg PO DAILY Label Comments: Take 1 (ONE) tablet once daily in the morning prednisone 20 mg tablet 60 mg PO DAILY 30 Days Qty: 90 0RF Primary Care Provider: Job Cohen Referrals: Bon Olson DO [Med Staff - Active Staff] - 1 Day Job Cohen MD [Primary Care Provider] - 3-5 Days Activity Restrictions/Additional Instructions: Stop taking Lasix until Dr. Olson tells you to restart it Disposition Disposition: Home, Self Care
[2022-05-17] MEDS: 0.9% Normal Saline 1,000 ML 1000 ML IV (15:39)
[2022-05-17 15:53] LABS: Absolute Lymphocyte Count 0.21 X10^3/uL (0.83-4.51); Absolute Neutrophil Count 3.1 X10^3/uL (2.0-7.7); Basophil# 0.03 X10^3/uL; Basophil% 0.7 % (0-1); Eosinophil# 0.11 X10^3/uL; Eosinophils% 2.6 % (0-5); Hematocrit 44.8 % (40-54); Hemoglobin 13.9 g/dL (13.0-16.5); Lymphocyte # 0.21 X10^3/ul (0.83-4.51); Lymphocyte % 4.9 % (19-41); Mean Corpuscular Hgb 26.3 pg (27.0-32.0); Mean Corpuscular Volume 84.7 fL (80-94); Mean Platelet Vol. 10.1 fl (6.2-12.0); Monocyte# 0.79 X10^3/uL; Monocyte% 18.3 % (0-10); NRBC Flagged by Analyzer 1.4 % (0-5); Neutrophil # 3.13 X10^3/uL (2.7-7.7); Neutrophil % 72.6 % (47-70); POSITIVE DIFFERENTIAL YES; POSITIVE MORPHOLOGY YES; Platelet Count 126 K/mm3 (150-450); RBC Distribution Width CV 23.9 % (11.6-14.6); RBC Distribution Width SD 69.3 fl (35.1-43.9); Red Blood Count 5.29 M/mm3 (4.6-6.2); White Blood Count 4.3 K/mm3 (4.4-11.0)
[2022-05-17 15:59] LABS: Differential Indicated SCAN CRITERIA MET
[2022-05-17 16:07] LABS: ALB/GLOB Ratio 0.6 RATIO (0.9-2.4); AST(SGOT) 25 U/L (15-37); Alanine Aminotransfer ALT/SGPT 22 U/L (16-61); Albumin, Serum 2.2 g/dL (3.2-5.0); Alkaline Phosphatase 494 U/L (45-117); Anion Gap 8 (5-15); BUN 36 mg/dL (7-18); BUN/Creat Ratio 25.4 RATIO (10-20); Calcium,Total 8.9 mg/dL (8.5-10.1); Chloride 110 mmol/L (98-107); Creatinine, Serum 1.42 mg/dL (0.70-1.30); EST Glomerular Filtration Rate 53 mL/min (>60); Est Glom Filt Rate - Afr Amer 64 mL/min (>60); Estimated Creatinine Clearance 50.48 ml/min; Globulin 3.6 g/dL (2.2-4.2); Glucose 147 mg/dL (74-106); Lipase 26 U/L (73-393); Protein, Total 5.8 g/dL (6.4-8.2); Sodium Level 140 mmol/L (136-145)
--- NOTE | 2022-05-17 16:08 | RAD_ITS ---
STUDY: X-RAY CHEST REASON FOR EXAM: Male, 66 years old. Shortness of breath. TECHNIQUE: Single AP portable view of the chest. COMPARISON: CT of the chest, August 13, 2021. FINDINGS: Left jugular Port-A-Cath. The tip lies at the atriocaval junction. The lungs are mildly hypoexpanded. There is no infiltrate or mass. There is no demonstrated pleural abnormality. Normal size heart. Normal mediastinum and dean. Normal visualized pulmonary arteries. Normal visualized aortic arch and descending thoracic aorta. Normal visualized thoracic spine. There is degenerative osteoarthritis of the bilateral shoulders. There is no demonstrated abnormality of the visualized soft tissue structures of the upper abdomen. RAD/Chest 1 View (Portable) IMPRESSION: 1. No acute cardiopulmonary disease. 2. Left Port-A-Cath. Electronically Signed: Rd Michael DO at 17:27 EDT ,
[2022-05-17 16:34] LABS: Differential Comment SCANNED
[2022-05-17 16:35] LABS: Anisocytosis 2+
[2022-05-17 18:32] LABS: Lactic Acid 2.5 mmol/L (0.4-1.9)
[2022-05-17] MEDS: 0.9% Normal Saline 1,000 ML 999 ML IV (19:16)
[2022-05-17 19:45] LABS: Reflex Lactate? Y
[2022-05-17 21:48] LABS: Reflex Lactate? Y
[2022-05-18 13:18] LABS: Pathologist Review Reviewed
== END 2022-05-17 22:03 | disposition home or self-care (01) ==
PROVIDERS: Emergency Provider Emergency Medicine; PCP Internal Medicine; Visit Provider Emergency Medicine
DX: C15.9 Malignant neoplasm of esophagus, unspecified (principal); E86.0 Dehydration; R79.89 Other specified abnormal findings of blood chemistry; G47.30 Sleep apnea, unspecified; K76.0 Fatty (change of) liver, not elsewhere classified; Z86.73 Personal history of transient ischemic attack (TIA), and cerebral infarction without residual deficits; Z87.891 Personal history of nicotine dependence
CPT/HCPCS: 36591; 71045; 74176; 80053; 83605; 83690; 85025; 93005; 96360; 96361; 99283; J7030; A4216

== ENCOUNTER 2022-05-22 15:04 | Inpatient (IN) | payer MEDICARE, SELFPAY ==
[2022-05-22 15:05] VITALS: BP 107/85; PULSE 91; RESP 16; TEMP 36.2; O2SAT 98; BMI 23.8
--- NOTE | 2022-05-22 15:20 | EX.ED.DYSGE1 ---
HPI History of Present Illness Chief Complaint: Nausea/Vomiting Informant: patient Onset/Context/Timing Onset: Today Narrative Narrative: Patient presents after vomiting blood. He has a history of esophageal cancer. He is also currently on Eliquis secondary to prior blood clots. Patient states he woke around 1230 this afternoon with a nosebleed. He then had 2 episodes of vomiting blood. states the first episode was blood mixed with mucus and the second episode seem to be straight blood. He has chronic abdominal pain that is unchanged from his baseline. He states he does not feel nauseated at this time. [facility] Medical History Acute cerebrovascular accident BPH (benign prostatic hyperplasia) CVA (cerebral vascular accident) Cystic kidney disease Diabetes Erectile dysfunction Esophagus cancer Fatty liver disease, nonalcoholic HTN (hypertension) Hyperlipidemia Lung cancer Nocturnal leg cramps Other psoriasis PVC (premature ventricular contraction) Restless leg syndrome Sleep apnea Type 2 diabetes mellitus Unilateral inguinal hernia, without obstruction or gangrene, recurrent Ventricular arrhythmia Home Medications metformin 500 mg tablet 1,000 mg PO BIDCM BLOOD SUGAR 06/02/15 [History Last Taken 01/15/22] apixaban 5 mg tablet (Eliquis) 5 mg PO DAILY BLOOD THINNER 01/15/22 [History Last Taken 01/15/22] benazepril 20 mg tablet 20 mg PO DAILY BLOOD PRESSURE 01/15/22 [History Last Taken 01/14/22] empagliflozin 25 mg tablet (Jardiance) 25 mg PO DAILY DM 01/15/22 [History Last Taken 01/15/22] glipizide 5 mg tablet, extended release 24 hr 5 mg PO DAILY BLOOD SUGAR 01/15/22 [History Last Taken 01/15/22] levothyroxine 50 mcg tablet 50 mcg PO DAILY THYROID 01/15/22 [History Last Taken 01/15/22] lovastatin 40 mg tablet 40 mg PO DAILY CHOLESTEROL 01/15/22 [History Last Taken 01/14/22] metoclopramide HCl 5 mg/5 mL oral solution 10 mg PO Q6H NAUSEA 01/15/22 [History Last Taken 01/15/22] omeprazole 40 mg capsule,delayed release 40 mg PO DAILY GERD 01/15/22 [History Last Taken 01/15/22] prednisone 20 mg tablet 60 mg PO DAILY 1 month #90 tabs 01/17/22 [Rx Last Taken Unknown] Allergy/AdvReac Type Severity Reaction Status Date / Time pollen extracts Allergy Swelling Verified 05/22/22 15:08 Family History Father Heart disease Mother Heart disease Surgical History History of gastric surgery S/P laparoscopic hernia repair S/P percutaneous endoscopic gastrostomy (PEG) tube placement Social History household members: spouse Smoking Status: Former smoker how long ago did patient quit smoking: Quit ~ 15 years prior, smoked cigars prior intermittently. alcohol intake: never substance use type: does not use ROS ROS ED Constitutional Constitutional ED: Denies chills or fever(s) Eyes Eyes: Denies change in vision or discharge from eye(s) ENT ENT ED: Reports other Details: Epistaxis ; Denies discharge from eye(s), rhinorrhea or sore throat Cardiovascular Cardiovascular: Denies chest pain or palpitations Respiratory/Chest Respiratory/Chest: Denies cough or dyspnea Gastrointestinal Gastrointestinal: Reports abdominal pain and vomiting; Denies diarrhea or nausea Genitourinary Genitourinary ED: Denies dysuria Musculoskeletal Musculoskeletal: Denies back pain or extremity pain Integumentary Denies Abrasions or rash Neurologic Neurologic: Denies headache(s) or weakness Psychiatric Psychiatric: Denies anxiety or depression Allergic/Immunologic Allergic/Immunologic ED: Denies lip swelling or urticaria EXAM Physical Exam Const Vital Signs: 05/22/22 15:05 Temperature 97.2 F L Temperature Source Temporal Pulse Rate 91 Respiratory Rate 16 Blood Pressure 107/85 H Blood Pressure Mean 92 Pulse Ox 98 Oxygen Delivery Method Room Air Positive well nourished and well developed General Appearance ED: well developed HEENT Reports normocephalic and head/scalp atraumatic Eyes PERRL and EOMs intact bilaterally Neck supple Chest Wall inspection of chest normal and palpation of chest normal Resp normal respiratory effort and clear to auscultation bilaterally Cardio regular rate and regular rhythm GI GI Narrative: Abdomen soft with mild diffuse tenderness to palpation. No guarding or rebound. Palpation: soft Back/Spine Negative for no CVA tenderness Extremity normal to inspection Neuro oriented x3 and no sensory deficits noted Sensorium / Orientation: alert Motor Exam: strength 5/5 throughout Psych mental status grossly normal Skin no rashes or lesions noted MDM MDM MDM Narrative Medical decision making narrative: Patient placed on sales attendant. Labwork obtained to evaluate for leukocytosis, anemia, and electrolyte derangement. Patient given IV fluids. Patient given IV Protonix. Patient denied nausea so antiemetics are held. Lab Data Attestation: I reviewed the patient's lab results. Labs: Laboratory Results - last 24 hr 05/22/22 05/22/22 05/22/22 16:15 16:15 16:15 WBC 5.8 RBC 5.67 Hgb 14.7 Hct 48.9 MCV 86.2 MCH 25.9 L MCHC 30.1 L RDW Std Deviation 73.2 H RDW Coeff of Chuck 24.9 H Plt Count 81 L MPV 10.0 Immature Gran % (Auto) 0.900 Neut % (Auto) 92.8 H Lymph % (Auto) 2.6 L [place] % (Auto) 2.9 Eos % (Auto) 0.5 Baso % (Auto) 0.3 Absolute Neuts (auto) 5.4 Absolute Lymphs (auto) 0.15 L Nucleated RBC % 1.0 Differential Comment SEE COMMENT Platelet Estimate MOD DEC RBC Morphology N CHROM Anisocytosis RARE Macrocytosis RARE PT 18.9 H INR 1.6 APTT 37.6 H Sodium 140 Potassium 4.9 Chloride 113 H Carbon Dioxide 19.0 L Anion Gap 8 BUN 39 H Creatinine 1.30 Estim Creat Clear Calc 55.14 Est GFR (MDRD) Af Amer 71 Est GFR (MDRD) Non-Af 58 L BUN/Creatinine Ratio 30.0 H Glucose 153 H Calcium 8.6 Total Bilirubin 1.20 H Direct Bilirubin 0.25 AST 30 ALT 21 Alkaline Phosphatase 399 H Total Protein 5.8 L Albumin 2.3 L Globulin 3.5 Lipase 20 L Treatment and Re-Evaluation :: CBC was normal white count 5.8 with a hemoglobin of 14.7. This is improved when compared to his prior values. His platelet count today is down to 81,000. Platelet count was 126,000 5 days ago. Patient has had no further bleeding episodes while here. My suspicion is that this vomiting blood is secondary to his nosebleed, however he also has esophageal mass and is on Plavix and Eliquis. I think it would be smart to observe him overnight to ensure no further bleeding. I spoke with Dr. Bhagat to ensure he would be available if needed. I have also spoken with the hospitalist. Discharge Plan Triage Chief Complaint: Nausea/Vomiting ED Provider: Shirlene Melgar Dx/Rx/DC Orders Clinical Impression: Vomiting blood, Esophageal cancer, Epistaxis Prescriptions: No Action metformin 500 MG tablet 1,000 mg PO BIDCM Label Comments: BLOOD SUGAR lovastatin 40 mg tablet 40 mg PO DAILY Label Comments: Take 1 tablet by mouth daily at bedtime. metoclopramide HCl 5 mg/5 mL solution 10 mg PO Q6H Label Comments: Take 10 mL by mouth every 6 hours as needed. glipizide 5 mg tablet extended release 24hr 5 mg PO DAILY Label Comments: TAKE 1 TABLET BY MOUTH ONCE DAILY omeprazole 40 mg capsule,delayed release(DR/EC) 40 mg PO DAILY Label Comments: Take 1 capsule by mouth once daily. levothyroxine 50 mcg tablet 50 mcg PO DAILY Label Comments: Take 1 tablet by mouth once daily. on an empty stomach. benazepril 20 mg tablet 20 mg PO DAILY Label Comments: TAKE 1 TABLET BY MOUTH DAILY Eliquis 5 mg tablet 5 mg PO DAILY Label Comments: TAKE 1 TABLET BY MOUTH TWICE DAILY Jardiance 25 mg tablet 25 mg PO DAILY Label Comments: Take 1 (ONE) tablet once daily in the morning prednisone 20 mg tablet 60 mg PO DAILY 30 Days Qty: 90 0RF Primary Care Provider: Job Cohen Referrals: Job Cohen MD [Primary Care Provider] - Disposition Disposition: Acute Care Hospital [facility]
[2022-05-22] MEDS: 0.9% Normal Saline 1,000 ML 100 ML IV ×2 (16:03→19:04)
[2022-05-22 16:33] LABS: Absolute Lymphocyte Count 0.15 X10^3/uL (0.83-4.51); Absolute Neutrophil Count 5.4 X10^3/uL (2.0-7.7); Basophil# 0.02 X10^3/uL; Basophil% 0.3 % (0-1); Eosinophil# 0.03 X10^3/uL; Eosinophils% 0.5 % (0-5); Hematocrit 48.9 % (40-54); Hemoglobin 14.7 g/dL (13.0-16.5); Lymphocyte # 0.15 X10^3/ul (0.83-4.51); Lymphocyte % 2.6 % (19-41); Mean Corp Hgb Conc 30.1 g/dL (32-36); Mean Corpuscular Hgb 25.9 pg (27.0-32.0); Mean Corpuscular Volume 86.2 fL (80-94); Monocyte# 0.17 X10^3/uL; Monocyte% 2.9 % (0-10); Neutrophil # 5.36 X10^3/uL (2.7-7.7); Neutrophil % 92.8 % (47-70); POSITIVE COUNT YES; POSITIVE DIFFERENTIAL YES; POSITIVE MORPHOLOGY YES; Platelet Count 81 K/mm3 (150-450); RBC Distribution Width CV 24.9 % (11.6-14.6); RBC Distribution Width SD 73.2 fl (35.1-43.9); Red Blood Count 5.67 M/mm3 (4.6-6.2); White Blood Count 5.8 K/mm3 (4.4-11.0)
[2022-05-22 16:37] LABS: International Normalized Ratio 1.6; Partial Thromboplast Time 37.6 Seconds (24.1-36.2); Prothrombin Time (Protime)PT. 18.9 SECONDS (11.7-14.9)
[2022-05-22 16:42] LABS: AST(SGOT) 30 U/L (15-37); Alanine Aminotransfer ALT/SGPT 21 U/L (16-61); Albumin, Serum 2.3 g/dL (3.2-5.0); Alkaline Phosphatase 399 U/L (45-117); Anion Gap 8 (5-15); BUN 39 mg/dL (7-18); Bilirubin, Direct 0.25 mg/dL (0.00-0.30); Calcium,Total 8.6 mg/dL (8.5-10.1); Chloride 113 mmol/L (98-107); EST Glomerular Filtration Rate 58 mL/min (>60); Est Glom Filt Rate - Afr Amer 71 mL/min (>60); Estimated Creatinine Clearance 55.14 ml/min; Globulin 3.5 g/dL (2.2-4.2); Glucose 153 mg/dL (74-106); Lipase 20 U/L (73-393); Potassium 4.9 mmol/L (3.5-5.1); Protein, Total 5.8 g/dL (6.4-8.2); Sodium Level 140 mmol/L (136-145)
[2022-05-22 16:54] LABS: Differential Indicated SCAN CRITERIA MET
[2022-05-22 16:56] LABS: Anisocytosis RARE; Macrocytosis RARE; Platelet Estimate MOD DEC (ADEQ); Red Cell Morphology N CHROM NORMAL (NORM C&C)
[2022-05-22 17:26] VITALS: BP 108/59; PULSE 79; RESP 16; TEMP 36.6; O2SAT 96
--- NOTE | 2022-05-22 17:31 | NURSING ---
MED SURG OBS WHITE VOMITING BLOOD, ESOPHAGAEL CANCER, EPISTAXIS
--- NOTE | 2022-05-22 18:16 | PCM.HP.STD ---
HPI - General General Date of Admission: 05/22/22 Date of Service: 05/22/22 Chief Complaint: Episode epistaxis with following concern for hematemesis HPI Narrative The patient is a 66 y/o M w/ PMHx: Chronic anemia, Esophageal CA w/ mets to lung, upper abdominal lymph nodes w/ recent transition to new chemotherapy agent per patient/family report following with Dr. 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 ED on 05/22/22 with history of onset at approximately 1230 this afternoon upon awakening from a nap onset of a nosebleed and immediately following reported mild nausea and upset stomach because of this with bouts of emesis with initially blood mixed with mucus however the second episode appeared to be eneida blood with unchanged chronic abdominal pain and no further episodes of any nausea or recurrent emesis and resolution of the epistaxis however given patient's anticoagulant/antiplatelet situation and underlying esophageal cancer prompted ED evaluation. Work-up in the ED included T97.8, heart rate 79, BP 108/59, respiratory rate 16, 96% on room air, CBC with WC 5.8, hemoglobin 14.7, platelet 81, no marked left shift but lymphopenia noted, coags with PT 18.9, INR 1.6, PTT 37.6, CMP with chloride 113, carbon oxide 19, BUN/creatinine 39/1.30, glucose 153, T. bili 1.20, alk phos 399, lipase 20. In the ED patient administered protonix 40 mg IV x 1. ED discussed case with Dr. Bhagat and although suspected course was from his epistaxis to be cautious given history of esophageal CA decision to monitor closely and assure no recurrent bleeding or evidence of GI source. Consultation not formally placed with GI but Dr. Bhagat available if becomes concerning for GI source. In the ED patient ministered Protonix 40 mg IV x1. [facility] Medical History Acute cerebrovascular accident BPH (benign prostatic hyperplasia) CVA (cerebral vascular accident) Cystic kidney disease Diabetes Erectile dysfunction Esophagus cancer Fatty liver disease, nonalcoholic HTN (hypertension) Hyperlipidemia Lung cancer Nocturnal leg cramps Other psoriasis PVC (premature ventricular contraction) Restless leg syndrome Sleep apnea Type 2 diabetes mellitus Unilateral inguinal hernia, without obstruction or gangrene, recurrent Ventricular arrhythmia Home Medications metformin 500 mg tablet 1,000 mg PO BIDCM BLOOD SUGAR 06/02/15 [History Last Taken 01/15/22] apixaban 5 mg tablet (Eliquis) 5 mg PO DAILY BLOOD THINNER 01/15/22 [History Last Taken 01/15/22] benazepril 20 mg tablet 20 mg PO DAILY BLOOD PRESSURE 01/15/22 [History Last Taken 01/14/22] empagliflozin 25 mg tablet (Jardiance) 25 mg PO DAILY DM 01/15/22 [History Last Taken 01/15/22] glipizide 5 mg tablet, extended release 24 hr 10 mg PO DAILY BLOOD SUGAR 01/15/22 [History Last Taken 01/15/22] levothyroxine 50 mcg tablet 50 mcg PO DAILY THYROID 01/15/22 [History Last Taken 01/15/22] lovastatin 40 mg tablet 40 mg PO QHS CHOLESTEROL 01/15/22 [History Last Taken 01/14/22] metoclopramide HCl 5 mg/5 mL oral solution 10 mg PO Q6H PRN NAUSEA 01/15/22 [History Last Taken 01/15/22] omeprazole 40 mg capsule,delayed release 40 mg PO DAILY GERD 01/15/22 [History Last Taken 01/15/22] Allergy/AdvReac Type Severity Reaction Status Date / Time pollen extracts Allergy Swelling Verified 05/22/22 15:08 Family History Father Heart disease Mother Heart disease Surgical History History of gastric surgery S/P laparoscopic hernia repair S/P percutaneous endoscopic gastrostomy (PEG) tube placement Social History household members: spouse Smoking Status: Former smoker how long ago did patient quit smoking: Quit ~ 15 years prior, smoked cigars prior intermittently. alcohol intake: never substance use type: does not use ROS ROS Narrative Admission Review of Systems: CONSTITUTIONAL: No weight loss, fever, chills, + weakness or fatigue. HEENT: + Episode epistaxis. Eyes: No visual loss, blurred vision, double vision or yellow sclerae. Ears, Nose, Throat: No hearing loss, sneezing, congestion, runny nose or sore throat. SKIN: No rash or itching, lesions, wounds. CARDIOVASCULAR: No chest pain, chest pressure or chest discomfort, palpitations, edema, orthopnea, syncopal events. RESPIRATORY: No dyspnea, cough, increased sputum, wheezing, hemoptysis. GASTROINTESTINAL: + Chronic dysphagia, prior TF with PEG since removed, episode of epistaxis followed by concerns for hematemesis, chronic unchanged abdominal pain. No melena, BRBPR. GENITOURINARY: No dysuria, frequency, urgency or retention. NEUROLOGICAL: No headache, dizziness, syncope, paralysis, ataxia, numbness or tingling in the extremities, focal weakness, change in bowel or bladder control, seizure. MUSCULOSKELETAL: + muscle, back pain, joint pain or stiffness. HEMATOLOGIC: + anemia, bleeding or bruising. LYMPHATICS: No enlarged nodes. No history of splenectomy. PSYCHIATRIC: No history of depression or anxiety. ENDOCRINOLOGIC: No reports of sweating, cold or heat intolerance. No polyuria or polydipsia. ALLERGIES: + history of rhinitis. Vital Signs Vital Signs Vital Signs: 05/22/22 15:05 Temperature 97.2 F L Temperature Source Temporal Pulse Rate 91 Respiratory Rate 16 Blood Pressure 107/85 H Blood Pressure Mean 92 Pulse Ox 98 Oxygen Delivery Method Room Air Weight Weight: 161 lb 4.8 oz Body Mass Index (BMI) 23.8 Physical Exam Narrative Physical Examination: General: Awake, alert, oriented x 3 and cooperative, seated upright in the ED bed, fatigued appearing. Skin: Normal color, normal turgor, no icterus, no cyanosis except occasional staged ecchymoses. HEENT: AT/NC, EOMI, PERRLA, dry MM, no current active evidence of epistaxis, no carotid bruits or JVD noted. Lungs: Diminished, greater bases, appropriate effort, no rales, ronchi or wheezing. Heart: Regular rate with regular rhythm; no gallop, rub audible. Abdomen: Soft, generally diffuse chronic discomfort with palpation which she notes is stable, appears mildly distended but states this is baseline, mildly hyperactive bowel sounds, no obvious HSM, status post PEG tube removal over the last couple months. Extremities: No cyanosis, clubbing, or edema. Neurological: Patient awake, alert, oriented as noted, cognitive function intact; pupils equally reactive to light and accommodation, cranial nerves II-XII grossly normal, moving all 4 extremities, no focal deficits, strength moderately global decrease secondary to acute presentation. Psychiatric: Affect appears fatigued, no acute evidence of depressive or anxiety feelings. Results Lab / Micro Data Result Diagrams: 05/22/22 16:15 05/22/22 16:15 Labs: Laboratory Results - last 24 hr 05/22/22 16:15: WBC 5.8, RBC 5.67, Hgb 14.7, Hct 48.9, MCV 86.2, MCH 25.9 L, MCHC 30.1 L, RDW Std Deviation 73.2 H, RDW Coeff of Chuck 24.9 H, Plt Count 81 L, MPV 10.0, Immature Gran % (Auto) 0.900, Neut % (Auto) 92.8 H, Lymph % (Auto) 2.6 L, [place] % (Auto) 2.9, Eos % (Auto) 0.5, Baso % (Auto) 0.3, Absolute Neuts (auto) 5.4, Absolute Lymphs (auto) 0.15 L, Nucleated RBC % 1.0, Differential Comment SEE COMMENT, Platelet Estimate MOD DEC, RBC Morphology N CHROM, Anisocytosis RARE, Macrocytosis RARE 05/22/22 16:15: PT 18.9 H, INR 1.6, APTT 37.6 H 05/22/22 16:15: Sodium 140, Potassium 4.9, Chloride 113 H, Carbon Dioxide 19.0 L, Anion Gap 8, BUN 39 H, Creatinine 1.30, Estim Creat Clear Calc 55.14, Est GFR (MDRD) Af Amer 71, Est GFR (MDRD) Non-Af 58 L, BUN/Creatinine Ratio 30.0 H, Glucose 153 H, Calcium 8.6, Total Bilirubin 1.20 H, Direct Bilirubin 0.25, AST 30, ALT 21, Alkaline Phosphatase 399 H, Total Protein 5.8 L, Albumin 2.3 L, Globulin 3.5, Lipase 20 L Assessment & Plan Assessment/Plan (1) Epistaxis: PLAN: Plan The patient is a 66 y/o M w/ PMHx: Chronic anemia, Esophageal CA w/ mets to lung, upper abdominal lymph nodes w/ recent transition to new chemotherapy agent per patient/family report following with Dr. 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 ED on 05/22/22 with history of onset at approximately 1230 this afternoon upon awakening from a nap onset of a nosebleed and immediately following reported mild nausea and upset stomach because of this with bouts of emesis with initially blood mixed with mucus however the second episode appeared to be eneida blood with unchanged chronic abdominal pain and no further episodes of any nausea or recurrent emesis and resolution of the epistaxis however given patient's anticoagulant/antiplatelet situation and underlying esophageal cancer prompted ED evaluation. #1. Acute episode of epistaxis potentially related with recent new chemotherapeutic agent as this is a possible side effect; however, some concern for possible hematemesis and given patient history of esophageal cancer decision to closely monitor but low suspicion: We will admit to medical surgical floor, will maintain on clear liquids only with IV PPI, temporarily hold patient antiplatelet and anticoagulant therapy, cycle H&H's and repeat CBC in a.m. as noted concurrent recent increased thrombocytopenia potentially also related side effect of this new chemotherapeutic agent. If necessary may also involve Dr. Olson patient's oncologist. At this point if there is no recurrent bleeding, hemoglobin is remained stable then would plan discharge 05/23/22 however if any recurrent epistaxis may need to involve ENT or if it does seem like this is more GI source would involve gastroenterology. #2. Thrombocytopenia, likely related with underlying recent chemotherapy: Admission platelets 81, prior to this noted 05/17/2022 platelet 126 but previous to this had been normal range, recently initiated on new chemotherapeutic agent which suspect is likely the etiology, will trend CBC. #3.? Esophageal cancer with metastatic disease to the lung as well as upper abdominal lymph nodes with previous chronic dysphagia: Patient had previously been on tube feeds with a PEG tube however this has been removed within the last 2 months, allowed oral intake now although small bites, encourage continued outpatient follow-up with speech therapy. Magnesium and phosphorus levels requested. Suspect recent new chemotherapeutic agent the likely etiology for his current epistaxis and potentially the thrombocytopenia as this is a listed side effect. If needed may consider Dr. Masci oncology involvement. #3.? Chronic anemia: Admission hemoglobin 14.7, MCV 86.2, this is improved from previous, most recent prior to this noted 05/17/2022 for routine 9, will closely trend CBC given concern for recent epistaxis versus possible lower suspicion GI source. #4.? Hypertension: Continue home regimen including benazepril, PRN hydralazine. #5.? Hyperlipidemia: Continue home statin regimen. #6.? Diabetes mellitus type II with neuropathy: Hold oral home regimen, currently allowing clears only, transition diet once assure no recurrent concern for GI source, Accu-Cheks with insulin sliding scale. #7.? History CVA: Holding patient antiplatelet and anticoagulant therapy, continue hypertensive regimen as well as statin therapy, diabetic regimen with alteration as noted. #8.? Restless leg syndrome: Per current list not on regimen but if necessary may add Requip. #9.? Former tobacco use: Encourage continued tobacco cessation. #10.? BPH: For current list on regimen, may add Flomax if symptomatic. #11.? Hx VTE: Hx DVT, PE following port placement, holding anticoagulation temporarily given acute presentation #1. #12.? GERD: We will maintain on IV PPI #13.? ZAC: Given concerns and acute presentation #1 will temporally hold home CPAP. #14.? DVT Prophylaxis: SCDs. #15.? CODE status: Patient HCPOA and living will is still not in place.?Again, encouraged patient and his to set these items up given patient disease history and ongoing active chemotherapy.? Discussed CODE status at length including difference between FULL code, DNR-CCA and DNR-CC status. Following discussions about the differences in these status, requested Full Code status. Advanced Care Planning Face to Face Time: 16 minutes. Admission Evaluation Time spent evaluating chart, patient history, patient evaluation, care planning and discussion with specialists: 60 minutes. Charges/Coding Visit Charges Inpatient E&M: 41106 Init Hosp L2 Procedures Hospitalists Procedures: 15396 Advncd Care Plan 30 Min
[2022-05-22 18:33] VITALS: BMI 23.8
[2022-05-22 19:01] LABS: Magnesium 2.3 mg/dL (1.6-2.6); Phosphorus 3.7 mg/dL (2.5-4.9)
[2022-05-22 20:28] VITALS: BP 108/76; PULSE 81; RESP 18; TEMP 36.4; O2SAT 98
[2022-05-22] MEDS: Acetaminophen 325 MG Tablet 650 MG PO (20:34)
[2022-05-22] MEDS: Atorvastatin Calcium 10 MG Tablet PO (20:35)
[2022-05-22] MEDS: 0.9% Saline Lock 10 ML Syringe IV (20:41)
[2022-05-22 21:19] LABS: Hematocrit 49.4 % (40-54); Hemoglobin 14.7 g/dL (13.0-16.5)
[2022-05-22 21:21] LABS: Bedside Glucose 121 mg/dL (74-106)
[2022-05-23] VITALS (8 sets, daily range): BP systolic 76–119; BP diastolic 51–80; PULSE 74–88; RESP 18; TEMP 36.2–36.6; O2SAT 93–100; BMI 23.9
[2022-05-23 00:09] LABS: Hematocrit 44.9 % (40-54); Hemoglobin 13.6 g/dL (13.0-16.5); POSITIVE COUNT YES
[2022-05-23] MEDS: 0.9% Normal Saline 1,000 ML 100 ML IV (03:10)
[2022-05-23 04:27] LABS: Absolute Lymphocyte Count 0.17 X10^3/uL (0.83-4.51); Absolute Neutrophil Count 3.3 X10^3/uL (2.0-7.7); Basophil# 0.02 X10^3/uL; Basophil% 0.5 % (0-1); Eosinophil# 0.05 X10^3/uL; Eosinophils% 1.3 % (0-5); Hematocrit 43.8 % (40-54); Hemoglobin 13.3 g/dL (13.0-16.5); Lymphocyte # 0.17 X10^3/ul (0.83-4.51); Lymphocyte % 4.5 % (19-41); Mean Corp Hgb Conc 30.4 g/dL (32-36); Mean Corpuscular Hgb 26.2 pg (27.0-32.0); Mean Corpuscular Volume 86.2 fL (80-94); Monocyte# 0.19 X10^3/uL; Monocyte% 5.1 % (0-10); NRBC Flagged by Analyzer 1.1 % (0-5); Neutrophil % 87.8 % (47-70); POSITIVE COUNT YES; POSITIVE DIFFERENTIAL YES; POSITIVE MORPHOLOGY YES; Platelet Count 78 K/mm3 (150-450); RBC Distribution Width CV 24.2 % (11.6-14.6); RBC Distribution Width SD 72.7 fl (35.1-43.9); Red Blood Count 5.08 M/mm3 (4.6-6.2); White Blood Count 3.8 K/mm3 (4.4-11.0)
[2022-05-23 04:29] LABS: Differential Indicated SCAN CRITERIA MET
[2022-05-23 04:49] LABS: ALB/GLOB Ratio 0.7 RATIO (0.9-2.4); AST(SGOT) 25 U/L (15-37); Alanine Aminotransfer ALT/SGPT 18 U/L (16-61); Alkaline Phosphatase 314 U/L (45-117); Anion Gap 6 (5-15); BUN 39 mg/dL (7-18); BUN/Creat Ratio 30.7 RATIO (10-20); Calcium,Total 7.7 mg/dL (8.5-10.1); Chloride 117 mmol/L (98-107); Creatinine, Serum 1.27 mg/dL (0.70-1.30); EST Glomerular Filtration Rate 60 mL/min (>60); Est Glom Filt Rate - Afr Amer 73 mL/min (>60); Estimated Creatinine Clearance 56.44 ml/min; Glucose 109 mg/dL (74-106); Potassium 4.5 mmol/L (3.5-5.1); Sodium Level 141 mmol/L (136-145)
[2022-05-23] MEDS: Levothyroxine 50 MCG Tablet PO (06:20)
[2022-05-23 06:40] LABS: Bedside Glucose 97 mg/dL (74-106)
[2022-05-23 06:41] LABS: Anisocytosis 2+; Platelet Estimate MOD DEC (ADEQ)
[2022-05-23] MEDS: Acetaminophen 325 MG Tablet 650 MG PO (08:44)
[2022-05-23] MEDS: Lisinopril 20 MG Tablet PO (08:45)
--- NOTE | 2022-05-23 13:58 | PCM.PN.HOSP ---
Reason for Visit Reason for Visit: Diagnoses Epistaxis (05/22/22) Follow-up for epistaxis and concern for upper GI bleed and esophageal cancer. Objective Data Objective Data Vital Signs: Vital Signs Temp Pulse Resp BP Pulse Ox O2 Del Method 97.2 F L 78 18 108/78 95 Room Air 05/23/22 02:00 05/23/22 02:00 05/23/22 02:00 05/23/22 02:00 05/23/22 07:34 05/23/22 07:34 Oxygen Delivery Method Room Air Weight: 161 lb 9.581 oz Body Mass Index (BMI) 23.9 Intake & Output: Intake and Output for Last 24 Hours 05/21/22 05/22/22 05/23/22 23:59 23:59 23:59 Intake Total 651.67 / 801.67 911.67 / 911.67 Output Total 200 / 200 Balance 651.67 / 801.67 711.67 / 711.67 Lab / Micro Data Result Diagrams: 05/23/22 04:10 05/23/22 04:10 Labs: Laboratory Results - last 24 hr 05/22/22 16:15: WBC 5.8, RBC 5.67, Hgb 14.7, Hct 48.9, MCV 86.2, MCH 25.9 L, MCHC 30.1 L, RDW Std Deviation 73.2 H, RDW Coeff of Chuck 24.9 H, Plt Count 81 L, MPV 10.0, Immature Gran % (Auto) 0.900, Neut % (Auto) 92.8 H, Lymph % (Auto) 2.6 L, [place] % (Auto) 2.9, Eos % (Auto) 0.5, Baso % (Auto) 0.3, Absolute Neuts (auto) 5.4, Absolute Lymphs (auto) 0.15 L, Nucleated RBC % 1.0, Differential Comment SEE COMMENT, Platelet Estimate MOD DEC, RBC Morphology N CHROM, Anisocytosis RARE, Macrocytosis RARE 05/22/22 16:15: PT 18.9 H, INR 1.6, APTT 37.6 H 05/22/22 16:15: Sodium 140, Potassium 4.9, Chloride 113 H, Carbon Dioxide 19.0 L, Anion Gap 8, BUN 39 H, Creatinine 1.30, Estim Creat Clear Calc 55.14, Est GFR (MDRD) Af Amer 71, Est GFR (MDRD) Non-Af 58 L, BUN/Creatinine Ratio 30.0 H, Glucose 153 H, Calcium 8.6, Total Bilirubin 1.20 H, Direct Bilirubin 0.25, AST 30, ALT 21, Alkaline Phosphatase 399 H, Total Protein 5.8 L, Albumin 2.3 L, Globulin 3.5, Lipase 20 L 05/22/22 16:15: Phosphorus 3.7, Magnesium 2.3 05/22/22 20:39: POC Glucose 121 H 05/22/22 21:10: Hgb 14.7, Hct 49.4 05/22/22 23:55: Hgb 13.6, Hct 44.9 05/23/22 04:10: WBC 3.8 L, RBC 5.08, Hgb 13.3, Hct 43.8, MCV 86.2, MCH 26.2 L, MCHC 30.4 L, RDW Std Deviation 72.7 H, RDW Coeff of Chuck 24.2 H, Plt Count 78 L, Immature Gran % (Auto) 0.800, Neut % (Auto) 87.8 H, Lymph % (Auto) 4.5 L, [place] % (Auto) 5.1, Eos % (Auto) 1.3, Baso % (Auto) 0.5, Absolute Neuts (auto) 3.3, Absolute Lymphs (auto) 0.17 L, Nucleated RBC % 1.1, Diff Path Review June, Platelet Estimate MOD DEC, Anisocytosis 2+ 05/23/22 04:10: Sodium 141, Potassium 4.5, Chloride 117 H, Carbon Dioxide 18.0 L, Anion Gap 6, BUN 39 H, Creatinine 1.27, Estim Creat Clear Calc 56.44, Est GFR (MDRD) Af Amer 73, Est GFR (MDRD) Non-Af 60, BUN/Creatinine Ratio 30.7 H, Glucose 109 H, Calcium 7.7 L, Total Bilirubin 1.00, AST 25, ALT 18, Alkaline Phosphatase 314 H, Total Protein 5.0 L, Albumin 2.0 L, Globulin 3.0, Albumin/Globulin Ratio 0.7 L 05/23/22 06:19: POC Glucose 97 Physical Exam Narrative Patient has dysphagia with history of esophageal carcinoma and had PEG tube which was removed about a month ago. Patient has chronic abdominal pain for more than 6-month, severe ED characteristic in nature has not changed. Patient also complained of oral soreness and states cannot eat adequately due to pain. Physical exam General: Alert, Oriented x3, Cooperative, BMI 23.9 kg/m?, subacute malnutrition with loss of subcutaneous fat and muscle atrophy HEENT: Atraumatic, PERRLA, EOMI, Normocephalic Oral: Superficial ulceration of lateral margin of tongue, yellowish/pale patch at posterior pharyngeal wall and coated tongue. No blood clot or active bleeding. Neck: Supple, No JVD, Negative Carotid Bruits Lungs: Air entry diminished in bilateral lung bases. No crepitation/rhonchi Cardiovascular: Regular rate, Regular Rhythm, Normal S1, Normal S2, No murmurs Abdomen: Bowel Sounds sluggish, Soft, Non Tender, Non-Distended : No renal angle tenderness. No suprapubic tenderness. Extremities: No edema, Capillary Refill Less than 3 Seconds Skin: No rashes, No breakdown Musculoskeletal: No Tenderness to Palpation of Joints or Extremities. Moderate muscle atrophy of muscles of extremities. ROM restricted. Neurological: Cranial nerves II-XII grossly intact, DTR 2+/4 and Symmetrical, muscle strength 4/5 at major joints Psych/Mental Status: Flat affect Assessment & Plan Assessment/Plan (1) Epistaxis: PLAN: Plan The patient is a 66 y/o M who was admitted with nausea vomiting blood with history of esophageal cancer mets to lung, epistaxis about 1230 afternoon on day of admission. Patient also on Eliquis due to history of blood clot. Patient also has chronic abdominal pain which is unchanged from baseline. 1. Acute episode of epistaxis potentially related to new chemotherapeutic agent/ possible side effect:Exactly unclear whether it is epistaxis alone, emergency room or mixed. GI is consulted. Patient follows Dr. Olson. Last H&H 13/43%. Platelet count 78,000. Admission platelet count 81,000. It was 126,000 and ? therefore gradually decreasing probably chemotherapeutic adverse effect. Subacute thrombocytopenia GI is consulted. After admission patient did not had hematemesis. On clear liquid. IV fluid changed to D5 half NS for nutritional purposes. Serum sodium normal. Chloride 117. Normal anion gap metabolic acidosis with bicarb of 18. 2. Severe oral ulceration probably due to mucositis and oropharyngeal candidiasis: Patient is started on Bumex and nystatin oral or topical. #3.? Esophageal cancer with metastatic disease to the lung as well as upper abdominal lymph nodes with previous chronic dysphagia: Patient PEG tube was removed 2 months ago exact reason for removal unclear. Patient still has dysphagia multiple etiologies may be due to oral ulceration and esophageal cancer. Dr. Olson is his oncologist. #3.? Chronic normocytic normochromic anemia: Patient H&H is on baseline. His hemoglobin varies between 12 to 14 g. #4.? Hypertension: Continue home regimen including benazepril, PRN hydralazine. #5.? Hyperlipidemia: Continue home statin regimen. #6.? Diabetes mellitus type II with neuropathy: Hold oral home regimen, currently allowing clears only, transition diet once assure no recurrent concern for GI source, Accu-Cheks with insulin sliding scale. #7.? History CVA: Holding patient antiplatelet and anticoagulant therapy, continue hypertensive regimen as well as statin therapy, diabetic regimen with alteration as noted. #8.? Restless leg syndrome: Per current list not on regimen but if necessary may add Requip. #9.? Former tobacco use: Encourage continued tobacco cessation. #10.? BPH: For current list on regimen, may add Flomax if symptomatic. #11.? Hx VTE: Hx DVT, PE following port placement, holding anticoagulation temporarily given acute presentation #1. #12.? GERD: We will maintain on IV PPI #13.? ZAC: hold home CPAP. #14.? DVT Prophylaxis: SCDs. #15.? CODE status: Patient HCPOA and living will is still not in place.?Again, encouraged patient and his to set these items up given patient disease history and ongoing active chemotherapy.? Discussed CODE status at length including difference between FULL code, DNR-CCA and DNR-CC status. Following discussions about the differences in these status, requested Full Code status. Total time of the visit including total time spent in counseling or coordination of care, (more than 50% of the total time, spent in obtaining medical information from nurses and other ancillary care providers,explaining to the patient about labs, imaging, diagnosis and management of active complex medical conditions), discussion with gastroenterology, review of labs and imaging is 50 minutes. Laboratory Results 05/22/22 16:15: WBC 5.8, RBC 5.67, Hgb 14.7, Hct 48.9, MCV 86.2, MCH 25.9 L, MCHC 30.1 L, RDW Std Deviation 73.2 H, RDW Coeff of Chuck 24.9 H, Plt Count 81 L, MPV 10.0, Immature Gran % (Auto) 0.900, Neut % (Auto) 92.8 H, Lymph % (Auto) 2.6 L, [place] % (Auto) 2.9, Eos % (Auto) 0.5, Baso % (Auto) 0.3, Absolute Neuts (auto) 5.4, Absolute Lymphs (auto) 0.15 L, Nucleated RBC % 1.0, Differential Comment SEE COMMENT, Platelet Estimate MOD DEC, RBC Morphology N CHROM, Anisocytosis RARE, Macrocytosis RARE 05/22/22 16:15: PT 18.9 H, INR 1.6, APTT 37.6 H 05/22/22 16:15: Sodium 140, Potassium 4.9, Chloride 113 H, Carbon Dioxide 19.0 L, Anion Gap 8, BUN 39 H, Creatinine 1.30, Estim Creat Clear Calc 55.14, Est GFR (MDRD) Af Amer 71, Est GFR (MDRD) Non-Af 58 L, BUN/Creatinine Ratio 30.0 H, Glucose 153 H, Calcium 8.6, Total Bilirubin 1.20 H, Direct Bilirubin 0.25, AST 30, ALT 21, Alkaline Phosphatase 399 H, Total Protein 5.8 L, Albumin 2.3 L, Globulin 3.5, Lipase 20 L 05/22/22 16:15: Phosphorus 3.7, Magnesium 2.3 05/22/22 20:39: POC Glucose 121 H 05/22/22 21:10: Hgb 14.7, Hct 49.4 05/22/22 23:55: Hgb 13.6, Hct 44.9 05/23/22 04:10: WBC 3.8 L, RBC 5.08, Hgb 13.3, Hct 43.8, MCV 86.2, MCH 26.2 L, MCHC 30.4 L, RDW Std Deviation 72.7 H, RDW Coeff of [place] 24.2 H, Plt Count 78 L, Immature Gran % (Auto) 0.800, Neut % (Auto) 87.8 H, Lymph % (Auto) 4.5 L, [place] % (Auto) 5.1, Eos % (Auto) 1.3, Baso % (Auto) 0.5, Absolute Neuts (auto) 3.3, Absolute Lymphs (auto) 0.17 L, Nucleated RBC % 1.1, Diff Path Review June, Platelet Estimate MOD DEC, Anisocytosis 2+ 05/23/22 04:10: Sodium 141, Potassium 4.5, Chloride 117 H, Carbon Dioxide 18.0 L, Anion Gap 6, BUN 39 H, Creatinine 1.27, Estim Creat Clear Calc 56.44, Est GFR (MDRD) Af Amer 73, Est GFR (MDRD) Non-Af 60, BUN/Creatinine Ratio 30.7 H, Glucose 109 H, Calcium 7.7 L, Total Bilirubin 1.00, AST 25, ALT 18, Alkaline Phosphatase 314 H, Total Protein 5.0 L, Albumin 2.0 L, Globulin 3.0, Albumin/Globulin Ratio 0.7 L 05/23/22 06:19: POC Glucose 97 Charges/Coding Visit Charges Inpatient E&M: 39061 Subs Hosp L3
[2022-05-23] MEDS: Dext 5%-0.45% NS 1,000 ML 50 ML IV (14:47)
[2022-05-23] MEDS: Ensure Clear 120 ML Liquid PO (14:48)
[2022-05-23] MEDS: NYSTATIN 500,000 UNIT/5 ML UDC 500000 UNIT PO ×3 (14:48→22:39)
[2022-05-23] MEDS: BMX LIQUID 180 ML 20 ML PO (14:48)
--- NOTE | 2022-05-23 15:09 | CON.PCM.GI_ITS ---
HPI Consult Data Date of Consult: 05/23/22 HPI Narrative Reason for Consultation: GI bleed HPI Narrative: ELLIE BAINS, is a 66 M who presents with possible upper GI bleed. He has a past medical history of Chronic anemia, Esophageal CA w/ mets to lung, upper abdominal lymph nodes w/ recent transition to new chemotherapy agent per patient/family report following with Dr. Olson. He previously had a PEG tube but had the PEG tube removed after completing radiation. 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 He admits to an acute onset of a nosebleed and immediately following reported mild nausea and upset stomach because of this with bouts of emesis with initially blood mixed with mucus however the second episode appeared to be eneida blood with unchanged chronic abdominal pain and no further episodes of any nausea or recurrent emesis and resolution of the epistaxis however given patient's anticoagulant/antiplatelet situation and underlying esophageal cancer prompted ED evaluation. Work-up in the ED included T97.8, heart rate 79, BP 108/59, respiratory rate 16, 96% on room air, CBC with WC 5.8, hemoglobin 14.7, platelet 81, no marked left shift but lymphopenia noted, coags with PT 18.9, INR 1.6, PTT 37.6, CMP with chloride 113, carbon oxide 19, BUN/creatinine 39/1.30, glucose 153, T. bili 1.20, alk phos 399, lipase 20. In the ED patient administered protonix 40 mg IV x 1. ED discussed case with Dr. Bhagat and although suspected course was from his epistaxis to be cautious given history of esophageal CA decision to monitor closely and assure no recurrent bleeding or evidence of GI source.? He had a paracentesis recently of 250 cc approximately 2 weeks ago. A week ago he had approximately 2 L removed. He had a CT scan abdomen pelvis on admission: There are now bilateral small pleural effusions with atelectasis.? The visualized portions of the heart are within normal limits. There is marked coronary artery calcifications. There is absence of the markedly thickened/dilated esophagus noted on the previous examination. The liver is normal in size and contour. There are multiple rounded ill-defined hypodensities suspicious for metastatic disease which were not noted on the previous examination. There appears to be recannulization of the umbilical vein.? Normal gallbladder and extrahepatic biliary system. Normal spleen.? There is diffuse atrophy of the pancreas. [facility] Medical History Acute cerebrovascular accident BPH (benign prostatic hyperplasia) CVA (cerebral vascular accident) Cystic kidney disease Diabetes Erectile dysfunction Esophagus cancer Fatty liver disease, nonalcoholic HTN (hypertension) Hyperlipidemia Lung cancer Nocturnal leg cramps Other psoriasis PVC (premature ventricular contraction) Restless leg syndrome Sleep apnea Type 2 diabetes mellitus Unilateral inguinal hernia, without obstruction or gangrene, recurrent Ventricular arrhythmia Home Medications metformin 500 mg tablet 1,000 mg PO BIDCM BLOOD SUGAR 06/02/15 [History Last Taken 01/15/22] apixaban 5 mg tablet (Eliquis) 5 mg PO DAILY BLOOD THINNER 01/15/22 [History Last Taken 01/15/22] benazepril 20 mg tablet 20 mg PO DAILY BLOOD PRESSURE 01/15/22 [History Last Taken 01/14/22] empagliflozin 25 mg tablet (Jardiance) 25 mg PO DAILY DM 01/15/22 [History Last Taken 01/15/22] glipizide 5 mg tablet, extended release 24 hr 10 mg PO DAILY BLOOD SUGAR 01/15/22 [History Last Taken 01/15/22] levothyroxine 50 mcg tablet 50 mcg PO DAILY THYROID 01/15/22 [History Last Taken 01/15/22] lovastatin 40 mg tablet 40 mg PO QHS CHOLESTEROL 01/15/22 [History Last Taken 01/14/22] metoclopramide HCl 5 mg/5 mL oral solution 10 mg PO Q6H PRN NAUSEA 01/15/22 [History Last Taken 01/15/22] omeprazole 40 mg capsule,delayed release 40 mg PO DAILY GERD 01/15/22 [History Last Taken 01/15/22] Allergy/AdvReac Type Severity Reaction Status Date / Time pollen extracts Allergy Swelling Verified 05/22/22 15:08 Family History Father Heart disease Mother Heart disease Surgical History History of gastric surgery S/P laparoscopic hernia repair S/P percutaneous endoscopic gastrostomy (PEG) tube placement Social History household members: spouse Smoking Status: Former smoker how long ago did patient quit smoking: Quit ~ 15 years prior, smoked cigars prior intermittently. alcohol intake: never substance use type: does not use ROS ROS Narrative Admission Review of Systems: CONSTITUTIONAL: No weight loss, fever, chills, + weakness or fatigue. HEENT: + Episode epistaxis. Eyes: No visual loss, blurred vision, double vision or yellow sclerae. Ears, Nose, Throat: No hearing loss, sneezing, congestion, runny nose or sore throat. SKIN: No rash or itching, lesions, wounds. CARDIOVASCULAR: No chest pain, chest pressure or chest discomfort, palpitations, edema, orthopnea, syncopal events. RESPIRATORY: No dyspnea, cough, increased sputum, wheezing, hemoptysis. GASTROINTESTINAL: + Chronic dysphagia, prior TF with PEG since removed, episode of epistaxis followed by concerns for hematemesis, chronic unchanged abdominal pain. No melena, BRBPR. GENITOURINARY: No dysuria, frequency, urgency or retention. NEUROLOGICAL: No headache, dizziness, syncope, paralysis, ataxia, numbness or tingling in the extremities, focal weakness, change in bowel or bladder control, seizure. MUSCULOSKELETAL: + muscle, back pain, joint pain or stiffness. HEMATOLOGIC: + anemia, bleeding or bruising. LYMPHATICS: No enlarged nodes. No history of splenectomy. PSYCHIATRIC: No history of depression or anxiety. ENDOCRINOLOGIC: No reports of sweating, cold or heat intolerance. No polyuria or polydipsia. ALLERGIES: + history of rhinitis. Physical Exam Narrative Patient has dysphagia with history of esophageal carcinoma and had PEG tube which was removed about a month ago. Patient has chronic abdominal pain for more than 6-month, severe ED characteristic in nature has not changed. Patient also complained of oral soreness and states cannot eat adequately due to pain. Physical exam General: Alert, Oriented x3, Cooperative, BMI 23.9 kg/m?, subacute malnutrition with loss of subcutaneous fat and muscle atrophy HEENT: Atraumatic, PERRLA, EOMI, Normocephalic Oral: Superficial ulceration of lateral margin of tongue, yellowish/pale patch at posterior pharyngeal wall and coated tongue. No blood clot or active bleeding. Neck: Supple, No JVD, Negative Carotid Bruits Lungs: Air entry diminished in bilateral lung bases. No crepitation/rhonchi Cardiovascular: Regular rate, Regular Rhythm, Normal S1, Normal S2, No murmurs Abdomen: Bowel Sounds sluggish, Soft, Non Tender, Non-Distended : No renal angle tenderness. No suprapubic tenderness. Extremities: No edema, Capillary Refill Less than 3 Seconds Skin: No rashes, No breakdown Musculoskeletal: No Tenderness to Palpation of Joints or Extremities. Moderate muscle atrophy of muscles of extremities. ROM restricted. Neurological: Cranial nerves II-XII grossly intact, DTR 2+/4 and Symmetrical, muscle strength 4/5 at major joints Psych/Mental Status: Flat affect Medical Records Data Medical Nutrition Assessment Dietitian: Malnutrition Criteria Met Start: 05/23/22 13:48 Freq: Status: Active Protocol: Document 05/23/22 13:48 AG (Rec: 05/23/22 13:48 [id number]) Nutrition Malnutrition Evidence of Malnutrition Exists Yes Malnutrition (moderate): Chronic Evidenced By Suboptimal Energy Intake ( Moderate),Physical Changes ( Mild) Clinical Problem Chronic Disease or Condition Related Malnutrition Etiology moderate, chronic malnutrition related to inadequate energy intake w/ increased energy needs d/t metastatic disease Signs/Symptoms as evidenced by estimated PO intake meeting <75% of estimated energy needs > 1 month; Mild muscle wasting/fat loss evident per physical exam in orbital, temporal, clavicle, and acromion areas Status Active Problem Recommendation Dietitian Recommendations/Changes recommend advance diet as tolerated to regular; will add ensure clear 120mL 4x/day w/ medpass for additional nutrition if consumed; may benefit from sodium restriction but doubtful dietary sodium intake is influencing fluid retention given poor nutritional intake. Lab / Micro Data Result Diagrams: 05/23/22 04:10 05/23/22 04:10 Labs: Laboratory Results - last 24 hr 05/22/22 16:15: WBC 5.8, RBC 5.67, Hgb 14.7, Hct 48.9, MCV 86.2, MCH 25.9 L, MCHC 30.1 L, RDW Std Deviation 73.2 H, RDW Coeff of Chuck 24.9 H, Plt Count 81 L, MPV 10.0, Immature Gran % (Auto) 0.900, Neut % (Auto) 92.8 H, Lymph % (Auto) 2.6 L, [place] % (Auto) 2.9, Eos % (Auto) 0.5, Baso % (Auto) 0.3, Absolute Neuts (auto) 5.4, Absolute Lymphs (auto) 0.15 L, Nucleated RBC % 1.0, Differential Comment SEE COMMENT, Platelet Estimate MOD DEC, RBC Morphology N CHROM, Anisocytosis RARE, Macrocytosis RARE 05/22/22 16:15: PT 18.9 H, INR 1.6, APTT 37.6 H 05/22/22 16:15: Sodium 140, Potassium 4.9, Chloride 113 H, Carbon Dioxide 19.0 L , Anion Gap 8, BUN 39 H, Creatinine 1.30, Estim Creat Clear Calc 55.14, Est GFR (MDRD) Af Amer 71, Est GFR (MDRD) Non-Af 58 L, BUN/Creatinine Ratio 30.0 H, Glucose 153 H, Calcium 8.6, Total Bilirubin 1.20 H, Direct Bilirubin 0.25, AST 30, ALT 21, Alkaline Phosphatase 399 H, Total Protein 5.8 L, Albumin 2.3 L, Globulin 3.5, Lipase 20 L 05/22/22 16:15: Phosphorus 3.7, Magnesium 2.3 05/22/22 20:39: POC Glucose 121 H 05/22/22 21:10: Hgb 14.7, Hct 49.4 05/22/22 23:55: Hgb 13.6, Hct 44.9 05/23/22 04:10: WBC 3.8 L, RBC 5.08, Hgb 13.3, Hct 43.8, MCV 86.2, MCH 26.2 L, MCHC 30.4 L, RDW Std Deviation 72.7 H, RDW Coeff of Chuck 24.2 H, Plt Count 78 L, Immature Gran % (Auto) 0.800, Neut % (Auto) 87.8 H, Lymph % (Auto) 4.5 L, [place] % (Auto) 5.1, Eos % (Auto) 1.3, Baso % (Auto) 0.5, Absolute Neuts (auto) 3.3, Absolute Lymphs (auto) 0.17 L, Nucleated RBC % 1.1, Diff Path Review June adrian, Platelet Estimate MOD DEC, Anisocytosis 2+ 05/23/22 04:10: Sodium 141, Potassium 4.5, Chloride 117 H, Carbon Dioxide 18.0 L , Anion Gap 6, BUN 39 H, Creatinine 1.27, Estim Creat Clear Calc 56.44, Est GFR (MDRD) Af Amer 73, Est GFR (MDRD) Non-Af 60, BUN/Creatinine Ratio 30.7 H, Glucose 109 H, Calcium 7.7 L, Total Bilirubin 1.00, AST 25, ALT 18, Alkaline Ph osphatase 314 H, Total Protein 5.0 L, Albumin 2.0 L, Globulin 3.0, Albumin/Globulin Ratio 0.7 L 05/23/22 06:19: POC Glucose 97 Assessment & Plan Assessment/Plan (1) Epistaxis: (2) Esophageal cancer: PLAN: Plan The patient is a 66 y/o M w/ PMHx: Chronic anemia, Esophageal CA w/ mets to lung, upper abdominal lymph nodes Acute episode of epistaxis potentially related with recent new chemotherapeutic agent as this is a possible side effect; he does have what appears to be significant stomatitis in his mouth without clear signs of thrush. His esophagus does not look thickened like he had an Nunu-Magana tear but that is on the differential diagnosis for upper GI bleed. With his history of radiation to the esophagus it makes esophageal varices less likely. There is a possibility that he has signs of portal gastropathy which can cause an upper GI bleed along with possible gastric varices secondary to pseudocirrhosis that is likely due to recent tumor burden seen in his liver on his recent CT scan abdomen pelvis. He has not had any more signs of GI bleeding at this time. Thrombocytopenia, likely related with underlying recent chemotherapy: Admission platelets 81, prior to this noted 05/17/2022 platelet 126 but previous to this had been normal range, recently initiated on new chemotherapeutic agent which suspect is likely the etiology, will trend CBC. Esophageal cancer with metastatic disease to the lung as well as upper abdominal lymph nodes with previous chronic dysphagia. He likely has peritoneal carcinomatosis. I spent a long time answering questions regarding percutaneous tube placed for frequent paracentesis as an option to not having frequent paracentesis as an outpatient. Patient has an appointment with Dr. Moreira on Tuesday, May 26, 2022. He is experiencing hypotension, ascites, fatigue without gross jaundice like he has cirrhosis. He may benefit from midodrine therapy. Patient's family are deciding regarding his options in the future. Charges/Coding Visit Charges Inpatient E&M: 59239 Init Hosp L3
[2022-05-23] MEDS: Lactated Ringers 1,000 ML 999 ML IV (15:10)
[2022-05-23 15:15] LABS: Bedside Glucose 163 mg/dL (74-106)
[2022-05-23 19:00] LABS: Bedside Glucose 163 mg/dL (74-106)
[2022-05-23 22:07] LABS: Hematocrit 44.7 % (40-54); Hemoglobin 12.8 g/dL (13.0-16.5); Mean Corp Hgb Conc 28.6 g/dL (32-36); Mean Corpuscular Hgb 25.9 pg (27.0-32.0); Mean Corpuscular Volume 90.3 fL (80-94); POSITIVE COUNT YES; POSITIVE MORPHOLOGY YES; Platelet Count 82 K/mm3 (150-450); RBC Distribution Width CV 24.8 % (11.6-14.6); RBC Distribution Width SD 79.6 fl (35.1-43.9); Red Blood Count 4.95 M/mm3 (4.6-6.2); White Blood Count 2.9 K/mm3 (4.4-11.0)
[2022-05-23 22:10] LABS: Scan Indicated on CBC? Y/N YES- FLAGS NOTED
[2022-05-23] MEDS: 0.9% Saline Lock 10 ML Syringe IV (22:27)
[2022-05-23] MEDS: Albumin Human 25% (100 mL) 25 GM/100 ML BAG IV (22:27)
[2022-05-23] MEDS: Atorvastatin Calcium 10 MG Tablet PO (22:39)
[2022-05-23 22:44] LABS: Differential Comment SCANNED
[2022-05-23] MEDS: Midodrine HCl 5 MG Tablet 10 MG PO (23:10)
[2022-05-24] VITALS (9 sets, daily range): BP systolic 91–106; BP diastolic 62–70; PULSE 72–90; RESP 16–20; TEMP 36.4–37; O2SAT 92–96; BMI 24.7
[2022-05-24] MEDS: Albumin Human 25% (100 mL) 25 GM/100 ML BAG IV (00:47)
--- NOTE | 2022-05-24 00:53 | NURSING ---
pt is refusing to be bladder scanned.
[2022-05-24 02:21] LABS: Bedside Glucose 116 mg/dL (74-106)
[2022-05-24] MEDS: 0.9% Saline Lock 10 ML Syringe IV ×3 (02:40→08:23)
[2022-05-24] MEDS: Ondansetron 4 MG/2 ML Vial IV (02:59)
[2022-05-24 05:16] LABS: ALB/GLOB Ratio 1.2 RATIO (0.9-2.4); AST(SGOT) 17 U/L (15-37); Alanine Aminotransfer ALT/SGPT 17 U/L (16-61); Albumin, Serum 2.7 g/dL (3.2-5.0); Alkaline Phosphatase 236 U/L (45-117); Anion Gap 6 (5-15); BUN 36 mg/dL (7-18); BUN/Creat Ratio 29.8 RATIO (10-20); Calcium,Total 7.7 mg/dL (8.5-10.1); Chloride 115 mmol/L (98-107); Creatinine, Serum 1.21 mg/dL (0.70-1.30); EST Glomerular Filtration Rate 64 mL/min (>60); Est Glom Filt Rate - Afr Amer 77 mL/min (>60); Estimated Creatinine Clearance 59.24 ml/min; Globulin 2.3 g/dL (2.2-4.2); Glucose 142 mg/dL (74-106); Potassium 3.7 mmol/L (3.5-5.1); Sodium Level 140 mmol/L (136-145)
[2022-05-24] MEDS: Levothyroxine 50 MCG Tablet PO (06:42)
[2022-05-24 07:10] LABS: Bedside Glucose 145 mg/dL (74-106)
[2022-05-24] MEDS: proCHLORPERazine 10 MG/2 ML Vial 5 MG IV (08:23)
[2022-05-24] MEDS: BMX LIQUID 180 ML 20 ML PO ×2 (08:24→11:36)
[2022-05-24] MEDS: NYSTATIN 500,000 UNIT/5 ML UDC 500000 UNIT PO ×3 (08:28→16:39)
[2022-05-24] MEDS: Midodrine HCl 5 MG Tablet 10 MG PO ×3 (08:31→16:39)
--- NOTE | 2022-05-24 10:58 | PN.HOSP_ITS ---
Reason for Visit Reason for Visit: Diagnoses Malignant neoplasm of esophagus, unspecified (05/22/22) Epistaxis (05/22/22) Follow-up for esophageal adenocarcinoma. Objective Data Objective Data Vital Signs: Vital Signs Temp Pulse Resp BP Pulse Ox O2 Del Method 98.2 F 86 18 97/65 94 Room Air 05/24/22 08:07 05/24/22 08:07 05/24/22 08:07 05/24/22 08:07 05/24/22 08:07 05/24/22 08:07 Oxygen Delivery Method Room Air Weight: 167 lb 8.821 oz Body Mass Index (BMI) 24.7 Intake & Output: Intake and Output for Last 24 Hours 05/22/22 05/23/22 05/24/22 23:59 23:59 23:59 Intake Total 651.67 / 801.67 3480.00 / 3480.00 761.67 / 761.67 Output Total 300 / 300 300 / 300 Balance 651.67 / 801.67 3180.00 / 3180.00 461.67 / 461.67 Medical Nutrition Assessment Dietitian: Malnutrition Criteria Met Start: 05/23/22 13:48 Freq: Status: Active Protocol: Document 05/23/22 13:48 AG (Rec: 05/23/22 13:48 AG [id number]) Nutrition Malnutrition Evidence of Malnutrition Exists Yes Malnutrition (moderate): Chronic Evidenced By Suboptimal Energy Intake ( Moderate),Physical Changes ( Mild) Clinical Problem Chronic Disease or Condition Related Malnutrition Etiology moderate, chronic malnutrition related to inadequate energy intake w/ increased energy needs d/t metastatic disease Signs/Symptoms as evidenced by estimated PO intake meeting <75% of estimated energy needs > 1 month; Mild muscle wasting/fat loss evident per physical exam in orbital, temporal, clavicle, and acromion areas Status Active Problem Recommendation Dietitian Recommendations/Changes recommend advance diet as tolerated to regular; will add ensure clear 120mL 4x/day w/ medpass for additional nutrition if consumed; may benefit from sodium restriction but doubtful dietary sodium intake is influencing fluid retention given poor nutritional intake. Lab / Micro Data Result Diagrams: 05/23/22 21:56 05/24/22 04:40 Labs: Laboratory Results - last 24 hr 05/23/22 14:52: POC Glucose 163 H 05/23/22 18:39: POC Glucose 163 H 05/23/22 21:56: WBC 2.9 L, RBC 4.95, Hgb 12.8 L, Hct 44.7, MCV 90.3, MCH 25.9 L, MCHC 28.6 L D, RDW Std Deviation 79.6 H, RDW Coeff of Chuck 24.8 H, Plt Count 82 L , Differential Comment SCANNED 05/24/22 00:43: POC Glucose 116 H 05/24/22 04:40: Sodium 140, Potassium 3.7, Chloride 115 H, Carbon Dioxide 19.0 L , Anion Gap 6, BUN 36 H, Creatinine 1.21, Estim Creat Clear Calc 59.24, Est GFR (MDRD) Af Amer 77, Est GFR (MDRD) Non-Af 64, BUN/Creatinine Ratio 29.8 H, Glucose 142 H, Calcium 7.7 L, Total Bilirubin 1.00, AST 17, ALT 17, Alkaline Phosphatase 236 H, Total Protein 5.0 L, Albumin 2.7 L, Globulin 2.3, Albumin/Globulin Ratio 1.2 05/24/22 06:42: POC Glucose 145 H Physical Exam Narrative I talked to the patient's today. Patient has dysphagia with history of esophageal carcinoma and had PEG tube which was removed about 2 month ago. After that he started eating good with full appetite without dysphagia therefore PEG tube was removed. Patient has ascites and has appointment with Dr. Dr. Spence for peritoneal tube on 05/26. Patient has chronic abdominal pain for more than 6-month, same severity and characteristic in nature that has not changed. Oral soreness is better. Physical exam General: Alert, Oriented x3, Cooperative, BMI 23.9 kg/m?, subacute malnutrition with loss of subcutaneous fat and muscle atrophy HEENT: Atraumatic, PERRLA, EOMI, Normocephalic Oral: Superficial ulceration of lateral margin of tongue, yellowish/pale patch at posterior pharyngeal wall and coated tongue. No thrush mucosal lesion seen. No blood clot or active bleeding. Neck: Supple, No JVD, Negative Carotid Bruits Lungs: Air entry diminished in bilateral lung bases. No crepitation/rhonchi Cardiovascular: Regular rate, Regular Rhythm, Normal S1, Normal S2, No murmurs Abdomen: Bowel Sounds sluggish, Soft, Non Tender, Non-Distended : No renal angle tenderness. No suprapubic tenderness. Extremities: No edema, Capillary Refill Less than 3 Seconds Skin: No rashes, No breakdown Musculoskeletal: No Tenderness to Palpation of Joints or Extremities. Moderate muscle atrophy of muscles of extremities. ROM restricted. Neurological: Cranial nerves II-XII grossly intact, DTR 2+/4 and Symmetrical, muscle strength 4/5 at major joints Psych/Mental Status: Flat affect Assessment & Plan Assessment/Plan (1) Epistaxis: PLAN: Plan The patient is a 66 y/o M who was admitted with nausea vomiting blood with history of esophageal cancer mets to lung, epistaxis about 1230 afternoon on day of admission. Patient also on Eliquis due to history of blood clot. Patient also has chronic abdominal pain which is unchanged from baseline. 1. Acute episode of epistaxis potentially related to new chemotherapeutic agent/ possible side effect:Exactly unclear whether it is epistaxis alone, emergency room or mixed. GI is consulted. Patient follows Dr. Olson. Last H&H 13/43%. Platelet count 78,000. Admission platelet count 81,000. It was 126,000 and ? therefore gradually decreasing probably chemotherapeutic adverse effect. Subacute thrombocytopenia GI is consulted. After admission patient did not had hematemesis. On clear liquid. IV fluid changed to D5 half NS for nutritional purposes. Serum sodium normal. Chloride 117. Normal anion gap metabolic acidosis with bicarb of 18. 05/24: Discussed with the GI. No procedure planned. Patient is due to see Dr. Spence on 05/26 for peritoneal tube insertion. Patient has ascites. CT abdomen from 05/17 shows small bilateral pleural effusion and atelectasis. Multiple low- attenuation masses suspicious for metastatic disease which is new finding. Diffuse ascites. Recanalization of umbilical vein suggestive of portal hypertension. Esophagus does not look thickened like he had a Nunu-Magana tear but this may be on the differential diagnosis. 2. Severe oral ulceration probably due to mucositis and oropharyngeal candidiasis: Patient is started on Bumex and nystatin oral or topical. 05/24: Discontinue nystatin. #3.? Esophageal cancer with metastatic disease to the lung as well as upper abdominal lymph nodes with previous chronic dysphagia: Patient PEG tube was removed 2 months ago exact reason for removal unclear. Patient still has dysphagia multiple etiologies may be due to oral ulceration and esophageal cancer. Dr. Olson is his oncologist. 05/24: The patient's was given options of palliative/hospice care but she has not made up her mind yet. She wants to take care of patient at home but I told her to be difficult and overwhelming as patient have severe abdominal pain, ascites, poor oral intake and in distress. Patient also has low blood pressure and slow metabolic rate and subacute severe malnutrition. #3.? Chronic normocytic normochromic anemia: Patient H&H is on baseline. His hemoglobin varies between 12 to 14 g. #4.? Hypertension: Continue home regimen including benazepril, PRN hydralazine. #5.? Hyperlipidemia: Continue home statin regimen. #6.? Diabetes mellitus type II with neuropathy: Hold oral home regimen, currently allowing clears only, transition diet once assure no recurrent concern for GI source, Accu-Cheks with insulin sliding scale. #7.? History CVA: Holding patient antiplatelet and anticoagulant therapy, continue hypertensive regimen as well as statin therapy, diabetic regimen with alteration as noted. #8.? Restless leg syndrome: Per current list not on regimen but if necessary may add Requip. #9.? Former tobacco use: Encourage continued tobacco cessation. #10.? BPH: For current list on regimen, may add Flomax if symptomatic. #11.? Hx VTE: Hx DVT, PE following port placement, holding anticoagulation temporarily given acute presentation #1. #12.? GERD: We will maintain on IV PPI #13.? ZAC: hold home CPAP. #14.? DVT Prophylaxis: SCDs. #15.? CODE status: Patient HCPOA and living will is still not in place.?Again, encouraged patient and his to set these items up given patient disease history and ongoing active chemotherapy.? Discussed CODE status at length including difference between FULL code, DNR-CCA and DNR-CC status. Following discussions about the differences in these status, requested Full Code status. Total time of the visit including total time spent in counseling or coordination of care, (more than 50% of the total time, spent in obtaining medical information from nurses and other ancillary care providers,explaining to the patient about labs, imaging, diagnosis and management of active complex medical conditions), discussion with gastroenterology, review of labs and imaging is 50 minutes. Laboratory Results 05/22/22 16:15: WBC 5.8, RBC 5.67, Hgb 14.7, Hct 48.9, MCV 86.2, MCH 25.9 L, MCHC 30.1 L, RDW Std Deviation 73.2 H, RDW Coeff of Chuck 24.9 H, Plt Count 81 L, MPV 10.0, Immature Gran % (Auto) 0.900, Neut % (Auto) 92.8 H, Lymph % (Auto) 2.6 L, [place] % (Auto) 2.9, Eos % (Auto) 0.5, Baso % (Auto) 0.3, Absolute Neuts (auto) 5.4, Absolute Lymphs (auto) 0.15 L, Nucleated RBC % 1.0, Differential Comment SEE COMMENT, Platelet Estimate MOD DEC, RBC Morphology N CHROM, Anisocytosis RARE, Macrocytosis RARE 05/22/22 16:15: PT 18.9 H, INR 1.6, APTT 37.6 H 05/22/22 16:15: Sodium 140, Potassium 4.9, Chloride 113 H, Carbon Dioxide 19.0 L , Anion Gap 8, BUN 39 H, Creatinine 1.30, Estim Creat Clear Calc 55.14, Est GFR (MDRD) Af Amer 71, Est GFR (MDRD) Non-Af 58 L, BUN/Creatinine Ratio 30.0 H, Glucose 153 H, Calcium 8.6, Total Bilirubin 1.20 H, Direct Bilirubin 0.25, AST 30, ALT 21, Alkaline Phosphatase 399 H, Total Protein 5.8 L, Albumin 2.3 L, Globulin 3.5, Lipase 20 L 05/22/22 16:15: Phosphorus 3.7, Magnesium 2.3 05/22/22 20:39: POC Glucose 121 H 05/22/22 21:10: Hgb 14.7, Hct 49.4 05/22/22 23:55: Hgb 13.6, Hct 44.9 05/23/22 04:10: WBC 3.8 L, RBC 5.08, Hgb 13.3, Hct 43.8, MCV 86.2, MCH 26.2 L, MCHC 30.4 L, RDW Std Deviation 72.7 H, RDW Coeff of Chuck 24.2 H, Plt Count 78 L, Immature Gran % (Auto) 0.800, Neut % (Auto) 87.8 H, Lymph % (Auto) 4.5 L, [place] % (Auto) 5.1, Eos % (Auto) 1.3, Baso % (Auto) 0.5, Absolute Neuts (auto) 3.3, Absolute Lymphs (auto) 0.17 L, Nucleated RBC % 1.1, Diff Path Review May foll, Platelet Estimate MOD DEC, Anisocytosis 2+ 05/23/22 04:10: Sodium 141, Potassium 4.5, Chloride 117 H, Carbon Dioxide 18.0 L , Anion Gap 6, BUN 39 H, Creatinine 1.27, Estim Creat Clear Calc 56.44, Est GFR (MDRD) Af Amer 73, Est GFR (MDRD) Non-Af 60, BUN/Creatinine Ratio 30.7 H, Glucose 109 H, Calcium 7.7 L, Total Bilirubin 1.00, AST 25, ALT 18, Alkaline Phosphatase 314 H, Total Protein 5.0 L, Albumin 2.0 L, Globulin 3.0, Albumin/Globulin Ratio 0.7 L 05/23/22 06:19: POC Glucose 97 Charges/Coding Visit Charges Inpatient E&M: 96831 Subs Hosp L3
[2022-05-24] MEDS: Insulin Lispro 100 UNIT/ML INSULN.PEN SC ×3 (11:36→23:30)
[2022-05-24 12:05] LABS: Bedside Glucose 217 mg/dL (74-106)
[2022-05-24] MEDS: Ensure Clear 120 ML Liquid PO ×2 (13:44→20:50)
[2022-05-24] MEDS: Dext 5%-0.45% NS 1,000 ML 50 ML IV (13:44)
--- NOTE | 2022-05-24 14:35 | CASEMGMT ---
Addendum entered by Cherie Holder 05/24/22 16:03: Updated family that the first two choices have been declined and the referral has been sent to the third choice. Pt then chose [facility], followed by [facility] and [facility]. Referrals sent to all 3 at this time. Addendum entered by Cherie Holder 05/24/22 15:43: Received non acceptance from [facility] and [facility]. Referral sent to [facility] via careport at this time. Addendum entered by Cherie Holder 05/24/22 15:41: Referral sent to [facility] for w/c, hospital bed and walker via careport. Addendum entered by Cherie Holder 05/24/22 14:58: Received choices for [facility]: [facility], [facility], [facility]. Referral sent to first two choices at this time via careport. Will await acceptance. Addendum entered by Cherie Holder 05/24/22 14:49: MANJINDER DEVINE into pt room, pt awake in bed. Discussed with him what had been discussed with family as far as HHC, DME and palliative care. Provided palliative care pamphlet. Patient and was provided a list of [facility] providers including quality and resource use data and consistent with the patient?s preferred geographic region, medical needs, and insurance network were provided from the [facility]. The will review and MANJINDER DEVINE to check back. TC to [facility], they do have a hospital bed available. Hip to hip measurements needed for w/c. Taken at 19 inches. No further needs at this time. Original Note: MANJINDER DEVINE Assessment: Face to Face with pt family per request for initial transition planning/care coordination assessment. MANJINDER DEVINE introduced self and role at [facility], pt family voices understanding and consents to assessment. Pt asks to meet in private room as pt is sleeping. She wishes to complete assessment. Care providers, pharmacy, and demographics verified/updated. Admitting Dx: questionable hematemesis vs epistaxis PCP:Noel Specialists:[facility]; Anatoly, cardio Preferred Pharmacy: [facility] Insurance: [facility] Prescription Benefit: yes LNOK: Juliana Villavicencio, Living Arrangements: Pt lives with in a two story home with 1/2 bath on main floor. There are 2-3 steps to enter the home with a rail. Per , pt has needed assistance with bathing and dressing for the last month. She assists with meals and laundry. Transportation: Pt has not driven recently. Pt transports him to [facility]. DME/HHC/SNF: Pt has a bipap, cane and BGM with sufficient testing supplies. Pt has no hx of HHC or SNF stays. Pt family states they want to take pt home at time of dc. They are asking for a hospital bed, walker and standard w/c. Family state they want a hospital bed regardless if it is covered by the insurance. Provided family with a verbal local in network list of DME companies, pt chose [employer]. Multiple members of family tearful throughout discussion, asked if they would like to speak to SW, they state this would be appreciated. Updated SW. Discussed palliative care and agreeable to receiving pamphlet. Currently pt family state they want pt to continue with chemo but do not know when the next treatment will be as it was scheduled for today and had to be cancelled. Discussed options for HHC for SN, PT, OT and OFFICE ADMINISTRATION in the home, pt family agreeable to this. Pt family states no further concerns/needs. CM to follow. Advised pt family to ask CM if any further question/concerns/needs arise, voices understanding. Pt Family Goal: Home with HHC Plan: Home with HHC with pt permission.
--- NOTE | 2022-05-24 15:10 | CASEMGMT ---
MANJINDER DEVINE in to discuss [facility] form with patient. Pt requests to sign form. MANJINDER DEVINE explained CROOK form, patient voiced understanding. Pt signed form and filed in chart. Provided with a copy of signed CROOK form. Patient had no further questions or concerns at this time.
--- NOTE | 2022-05-24 16:51 | PN_ITS ---
Subjective Subjective Patient says he feels about the same. He still having a lot of trouble with his mouth being that he has a lot of mouth pain that was thought to be secondary to possible infection from recent chemotherapy administration. Objective Data Objective Data Vital Signs: Vital Signs Temp Pulse Resp BP Pulse Ox O2 Del Method 97.9 F 77 20 H 105/66 96 Room Air 05/24/22 16:35 05/24/22 16:35 05/24/22 16:35 05/24/22 16:35 05/24/22 16:35 05/24/22 11:32 Oxygen Delivery Method Room Air Weight: 167 lb 8.821 oz Body Mass Index (BMI) 24.7 Intake & Output: Intake and Output for Last 24 Hours 05/22/22 05/23/22 05/24/22 23:59 23:59 23:59 Intake Total 651.67 / 801.67 3480.00 / 3480.00 994.17 / 994.17 Output Total 300 / 300 575 / 575 Balance 651.67 / 801.67 3180.00 / 3180.00 419.17 / 419.17 Medical Nutrition Assessment Dietitian: Malnutrition Criteria Met Start: 05/23/22 13:48 Freq: Status: Active Protocol: Document 05/23/22 13:48 AG (Rec: 05/23/22 13:48 AG [id number]) Nutrition Malnutrition Evidence of Malnutrition Exists Yes Malnutrition (moderate): Chronic Evidenced By Suboptimal Energy Intake ( Moderate),Physical Changes ( Mild) Clinical Problem Chronic Disease or Condition Related Malnutrition Etiology moderate, chronic malnutrition related to inadequate energy intake w/ increased energy needs d/t metastatic disease Signs/Symptoms as evidenced by estimated PO intake meeting <75% of estimated energy needs > 1 month; Mild muscle wasting/fat loss evident per physical exam in orbital, temporal, clavicle, and acromion areas Status Active Problem Recommendation Dietitian Recommendations/Changes recommend advance diet as tolerated to regular; will add ensure clear 120mL 4x/day w/ medpass for additional nutrition if consumed; may benefit from sodium restriction but doubtful dietary sodium intake is influencing fluid retention given poor nutritional intake. Lab / Micro Data Result Diagrams: 05/23/22 21:56 05/24/22 04:40 Labs: Laboratory Results - last 24 hr 05/23/22 18:39: POC Glucose 163 H 05/23/22 21:56: WBC 2.9 L, RBC 4.95, Hgb 12.8 L, Hct 44.7, MCV 90.3, MCH 25.9 L, MCHC 28.6 L D, RDW Std Deviation 79.6 H, RDW Coeff of Chuck 24.8 H, Plt Count 82 L , Differential Comment SCANNED 05/24/22 00:43: POC Glucose 116 H 05/24/22 04:40: Sodium 140, Potassium 3.7, Chloride 115 H, Carbon Dioxide 19.0 L , Anion Gap 6, BUN 36 H, Creatinine 1.21, Estim Creat Clear Calc 59.24, Est GFR (MDRD) Af Amer 77, Est GFR (MDRD) Non-Af 64, BUN/Creatinine Ratio 29.8 H, Glucose 142 H, Calcium 7.7 L, Total Bilirubin 1.00, AST 17, ALT 17, Alkaline Phosphatase 236 H, Total Protein 5.0 L, Albumin 2.7 L, Globulin 2.3, Albumin/Globulin Ratio 1.2 05/24/22 06:42: POC Glucose 145 H 05/24/22 11:30: POC Glucose 217 H Physical Exam Narrative Patient has dysphagia with history of esophageal carcinoma and had PEG tube which was removed about a month ago. Patient has chronic abdominal pain for more than 6-month, severe ED characteristic in nature has not changed. Patient also complained of oral soreness and states cannot eat adequately due to pain. Physical exam General: Alert, Oriented x3, Cooperative, BMI 23.9 kg/m?, subacute malnutrition with loss of subcutaneous fat and muscle atrophy HEENT: Atraumatic, PERRLA, EOMI, Normocephalic Oral: Superficial ulceration of lateral margin of tongue, yellowish/pale patch at posterior pharyngeal wall and coated tongue. No blood clot or active bleeding. Neck: Supple, No JVD, Negative Carotid Bruits Lungs: Air entry diminished in bilateral lung bases. No crepitation/rhonchi Cardiovascular: Regular rate, Regular Rhythm, Normal S1, Normal S2, No murmurs Abdomen: Bowel Sounds sluggish, Soft, Non Tender, Non-Distended : No renal angle tenderness. No suprapubic tenderness. Extremities: No edema, Capillary Refill Less than 3 Seconds Skin: No rashes, No breakdown Musculoskeletal: No Tenderness to Palpation of Joints or Extremities. Moderate muscle atrophy of muscles of extremities. ROM restricted. Neurological: Cranial nerves II-XII grossly intact, DTR 2+/4 and Symmetrical, muscle strength 4/5 at major joints Psych/Mental Status: Flat affect Assessment & Plan Assessment/Plan (1) Epistaxis: (2) Esophageal cancer: PLAN: Plan The patient is a 66 y/o M w/ PMHx: Chronic anemia, Esophageal CA w/ mets to lung, upper abdominal lymph nodes Acute episode of epistaxis potentially related with recent new chemotherapeutic agent as this is a possible side effect; he does have what appears to be significant stomatitis in his mouth without clear signs of thrush. His esophagus does not look thickened like he had an Nunu-Magana tear but that is on the differential diagnosis for upper GI bleed. With his history of radiation to the esophagus it makes esophageal varices less likely. There is a possibility that he has signs of portal gastropathy which can cause an upper GI bleed along with possible gastric varices secondary to pseudocirrhosis that is likely due to recent tumor burden seen in his liver on his recent CT scan abdomen pelvis. He has not had any more signs of GI bleeding at this time. Thrombocytopenia, likely related with underlying recent chemotherapy: Admission platelets 81, prior to this noted 05/17/2022 platelet 126 but previous to this had been normal range, recently initiated on new chemotherapeutic agent which suspect is likely the etiology, will trend CBC. Esophageal cancer with metastatic disease to the lung as well as upper abdominal lymph nodes with previous chronic dysphagia. He likely has peritoneal carcinomatosis. I spent a long time answering questions regarding percutaneous tube placed for frequent paracentesis as an option to not having frequent paracentesis as an outpatient. Patient has an appointment with Dr. Moreira on Tuesday, May 26, 2022. He is experiencing hypotension, ascites, fatigue without gross jaundice like he has cirrhosis. He may benefit from midodrine therapy. Patient's family are deciding regarding his options in the future. Charges/Coding Visit Charges Inpatient E&M: 82880 Subs Hosp L3
[2022-05-24 17:16] LABS: Bedside Glucose 169 mg/dL (74-106)
--- NOTE | 2022-05-24 17:18 | CASEMGMT ---
Social Work Pt with progressing cancer diagnosis and SW met with pt, pts and pts son for emotional support. Pt sleeping throughout conversation. Pt states they are waiting to hear from Dr. Olson prior to making any decisions regarding moving forward. Active listening and support provided. plans on taking pt home at time of discharge and confirms family has been very supportive and will continue to assist as needed. SW will remain available for additional support. SHERIE Mckay
[2022-05-24] MEDS: Atorvastatin Calcium 10 MG Tablet PO (20:51)
[2022-05-24 23:55] LABS: Bedside Glucose 160 mg/dL (74-106)
[2022-05-25] VITALS (8 sets, daily range): BP systolic 83–111; BP diastolic 57–71; PULSE 67–86; RESP 16–22; TEMP 36.7–37.2; O2SAT 93–97; BMI 24.7
[2022-05-25] MEDS: Levothyroxine 50 MCG Tablet PO (06:07)
[2022-05-25 07:18] LABS: AST(SGOT) 20 U/L (15-37); Alanine Aminotransfer ALT/SGPT 16 U/L (16-61); Albumin, Serum 2.4 g/dL (3.2-5.0); Alkaline Phosphatase 292 U/L (45-117); Anion Gap 1 (5-15); BUN 24 mg/dL (7-18); BUN/Creat Ratio 19.2 RATIO (10-20); Bilirubin, Direct 0.27 mg/dL (0.00-0.30); Calcium,Total 7.9 mg/dL (8.5-10.1); Chloride 115 mmol/L (98-107); Creatinine, Serum 1.25 mg/dL (0.70-1.30); EST Glomerular Filtration Rate 61 mL/min (>60); Est Glom Filt Rate - Afr Amer 74 mL/min (>60); Estimated Creatinine Clearance 57.35 ml/min; Globulin 2.8 g/dL (2.2-4.2); Glucose 142 mg/dL (74-106); Potassium 3.6 mmol/L (3.5-5.1); Protein, Total 5.2 g/dL (6.4-8.2); Sodium Level 141 mmol/L (136-145)
--- NOTE | 2022-05-25 08:07 | CON.PCM.ON_ITS ---
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 -KPS is 30%. -Personally reviewed CT A/P images from 05/17 to those of 04/14. Significant progression of liver metastases and development of large volume ascites. -Has developed MAURICE and hepatic synthetic dysfunction as evidenced by low albumin and prolonged PT/INR. -He is not a candidate for further cancer directed therapy. -I discussed with him at the bedside this morning goals of care are palliation and I recommend abdominal catheter placement and hospice consultation. He was in agreement with this. I subsequently spoke with his via phone. She also expressed an understanding and agreement with this plan. She has family willing to help at home. Plan: -Spoke with Dr. Yan. -Will have CT images from 04/14 sent here for official radiology comparison. -Consult general surgery for opinion on abdominal catheter placement. -Convert PPI to PO. -Consider Reglan 10 mg PO ATC. -Offer Roxanol while awake. May have to convert to Fentanyl patch if LFTs and/or bilirubin incrase. -Hospice consultation for home hospice care. I spent a total of 90 minutes on the date of the service which included preparing to see the patient, [id number] patient care, completing clinical documentation, obtaining and/or reviewing separately obtained history, performing a medically appropriate examination, counseling and educating the patient/family/caregiver, communicating with other HCPs (not separately reported), independently interpreting results (not separately reported), and communicating results to the patient/family/caregiver. HPI Consult Data Date of Service:: 05/25/22 PCP / Referring Provider: Dr. Job Cohen MD Attending: Dr. Mino Yan MD Chief Complaint Chief Complaint: Metastatic adenocarcinoma of the GE junction History of Present Illness History of Present Illness: Oncologic problem(s): 1) Metastatic carcinoma of the GE junction. ? HPI:?The patient is a 66-year-old male with a past medical history significant for hypertension, type 2 diabetes, previous stroke?(tingling on side of face--initially ASA but changed to Plavix) and reflux?with development of dysphagia and weight loss. ? Patient's symptoms started approximately 2 months prior to presentation. ?He has had progressive dysphagia for solid foods. ?He has regurgitation with some foods. ?He is able to get down liquids without choking. ?Swallowing was painful in the mid esophagus pain radiated to the upper chest. He described it as moderate in severity. ?He had reflux disease. ?No history of tobacco use. ? Patient underwent an EGD on 06/23/2021. ?The proximal and midesophagus appeared normal. ?Towards the distal esophagus there was note made of narrowing and st ricturing. ?It could distal esophagus could not be reached. ?The endoscope was approached at about 34 cm. ?There was at least a 2 to 3 cm length of stricture with a mass in the distal esophagus. ?A CRE balloon was then passed down and the balloon was able to penetrate the area and area was dilated. ?A second round was performed. ?Upon completely dilation the endoscope could be passed through the n arrowed lumen there was a solid mass noted. ?The Z-line appeared between 37 and 38 cm there was a hiatal hernia. ?Stomach was insufflated no ulcerations. ?No masses in the stomach bulbar duodenum appeared normal. ?Scope was withdrawn back in the stomach. ?Retroflexion to view the cardia was well seen. ?No mass in the stomach. ?This point the endoscope was drawn back up towards the stricture and biopsied. ? Pathology: Moderately differentiated adenocarcinoma with ulceration. ?No fungi or intestinal metaplasia noted. ? At initial consultation: Appetite--No appetite. Weight loss-- ~20lbs in about 2 months. Abdominal pain--No Dysphagia--Soups and liquids and protein supplements. Very little more solid foods. Odynophagia--No Bowels moving regularly--formed stools--no bloody or black stools. ? Muscle cramps in legs mostly at night when trying to relax--x years and years. Gabapentin didn't work. ? Denied musculoskeletal pain. ? 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 ? ? Underwent bronchoscopic biopsy of right middle lobe nodule 07/28/2021. ? Pathology: A. Lung, right middle lobe, transbronchial biopsy: - Poorly differentiated carcinoma (See comment). ? Had PEG tube placed but had to be done laparoscopically as scope could not be passed through the tumor. Hadn't used PEG tube in over a month--Removed 03/02/2022 when he was able to swallow much better. ? Previous therapy: 1)?Palliative radiation (3000 cGy in 10 fractions completed 08/27) along with concurrent FOLFOX. 2)?FOLFOX with nivolumab. He developed acute respiratory failure/hypoxemia on January 15, 2022 secondary to pneumonitis from nivolumab. Treated with high dose prednisone with improvement. Oxaliplatin was omitted secondary to dysgeusia and weight loss. 3) Infusional Fluorouracil. CT 04/14/2022 revealed new omental and liver metastases with small volume ascites. Had 100 ml paracentesis at [facility] 04/26/2022. Cytology positive for malignant cells. Current therapy: 1) Paclitaxel and ramucirumab. Started therapy 05/10. Underwent second paracentesis at [place] 05/10. 3.7 L removed. Admitted this weekend for epistaxis. There was a concern for hematemesis so he was observed overnight. No further bleeding but he has a lot of abdominal pain and discomfort. He was also having mouth sores which have since improved. Advanced Directives Power of Core Maker Helper: No Living Will: No [facility] Medical History Acute cerebrovascular accident BPH (benign prostatic hyperplasia) CVA (cerebral vascular accident) Cystic kidney disease Diabetes Erectile dysfunction Esophagus cancer Fatty liver disease, nonalcoholic HTN (hypertension) Hyperlipidemia Lung cancer Nocturnal leg cramps Other psoriasis PVC (premature ventricular contraction) Restless leg syndrome Sleep apnea Type 2 diabetes mellitus Unilateral inguinal hernia, without obstruction or gangrene, recurrent Ventricular arrhythmia Home Medications metformin 500 mg tablet 1,000 mg PO BIDCM BLOOD SUGAR 06/02/15 [History Last Taken 01/15/22] apixaban 5 mg tablet (Eliquis) 5 mg PO DAILY BLOOD THINNER 01/15/22 [History Last Taken 01/15/22] benazepril 20 mg tablet 20 mg PO DAILY BLOOD PRESSURE 01/15/22 [History Last Taken 01/14/22] empagliflozin 25 mg tablet (Jardiance) 25 mg PO DAILY DM 01/15/22 [History Last Taken 01/15/22] glipizide 5 mg tablet, extended release 24 hr 10 mg PO DAILY BLOOD SUGAR 01/15/22 [History Last Taken 01/15/22] levothyroxine 50 mcg tablet 50 mcg PO DAILY THYROID 01/15/22 [History Last Taken 01/15/22] lovastatin 40 mg tablet 40 mg PO QHS CHOLESTEROL 01/15/22 [History Last Taken 01/14/22] metoclopramide HCl 5 mg/5 mL oral solution 10 mg PO Q6H PRN NAUSEA 01/15/22 [History Last Taken 01/15/22] omeprazole 40 mg capsule,delayed release 40 mg PO DAILY GERD 01/15/22 [History Last Taken 01/15/22] Allergy/AdvReac Type Severity Reaction Status Date / Time pollen extracts Allergy Swelling Verified 05/22/22 15:08 Family History Father Heart disease Mother Heart disease Surgical History History of gastric surgery S/P laparoscopic hernia repair S/P percutaneous endoscopic gastrostomy (PEG) tube placement Social History household members: spouse Smoking Status: Former smoker how long ago did patient quit smoking: Quit ~ 15 years prior, smoked cigars prior intermittently. alcohol intake: never substance use type: does not use Physical Exam Const alert HEENT Mouth: dry mucous membranes Cardio regular rhythm GI GI Narrative: His abdomen is distended and tense. Tender throughout. Extremity Extremity Narrative: Right leg swelling. Vital Signs Temperature 99.0 F 05/25/22 02:46 Temperature Source Temporal 05/25/22 02:46 Pulse Rate 67 05/25/22 02:46 Pulse Strength Normal (2+) 05/24/22 20:57 Respiratory Rate 16 04/11/23 02:46 Respiratory Effort 05/25/22 08:04 Respiratory Depth Normal 05/25/22 03:56 Respiratory Pattern Normal 05/25/22 03:56 Blood Pressure 98/63 05/25/22 02:46 Blood Pressure Mean 74 05/25/22 02:46 Blood Pressure Source Monitor 05/25/22 02:46 Blood Pressure Position Semi-Fowlers 05/25/22 02:46 Blood Pressure Location Right Arm 05/25/22 02:46 Pulse Ox 96 05/25/22 03:56 Oxygen Delivery Method Nasal Cannula 05/25/22 03:56 Oxygen Flow Rate (L/min) 2 05/25/22 03:56 Laboratory Results - last 24 hr 05/24/22 11:30: POC Glucose 217 H 05/24/22 16:33: POC Glucose 169 H 05/24/22 23:28: POC Glucose 160 H 05/25/22 06:15: Sodium 141, Potassium 3.6, Chloride 115 H, Carbon Dioxide 25.0, Anion Gap 1 L, BUN 24 H, Creatinine 1.25, Estim Creat Clear Calc 57.35, Est GFR (MDRD) Af Amer 74, Est GFR (MDRD) Non-Af 61, BUN/Creatinine Ratio 19.2, Glucose 142 H, Calcium 7.9 L, Total Bilirubin 0.90, Direct Bilirubin 0.27, AST 20, ALT 16, Alkaline Phosphatase 292 H, Total Protein 5.2 L, Albumin 2.4 L, Globulin 2.8, Albumin/Globulin Ratio Cancelled
[2022-05-25] MEDS: Midodrine HCl 5 MG Tablet 10 MG PO ×3 (08:19→16:09)
[2022-05-25] MEDS: Ensure Clear 120 ML Liquid PO (08:20)
[2022-05-25] MEDS: Dext 5%-0.45% NS 1,000 ML 50 ML IV (08:58)
[2022-05-25] MEDS: BMX LIQUID 180 ML 20 ML PO ×2 (09:02→23:11)
[2022-05-25 09:03] LABS: International Normalized Ratio 1.5; Prothrombin Time (Protime)PT. 17.7 SECONDS (11.7-14.9)
[2022-05-25 09:04] LABS: Partial Thromboplast Time 38.6 Seconds (24.1-36.2)
[2022-05-25] MEDS: morphine (oral solution) 10MG/0.5ML Syringe 5 MG SL (09:17)
[2022-05-25 09:44] LABS: Pathologist Review Reviewed
--- NOTE | 2022-05-25 10:37 | CASEMGMT ---
[facility] has accepted pt for care. MANJINDER DEVINE into pt room, pt aware [facility] agency has accepted. Pt has spoke with [facility] and bed will be delivered today. Pt and have decided on a peritoneal catheter. Pt asking about transport home. then spoke that had mentioned hospice. Discussed with if this is the route she would like to take, we can adjust the plan. inquired of differences between HHC and hospice, provided information. Pt then pulled MANJINDER DEVINE aside and states that pt life expectancy is approx 2 wks. She would like to proceed with hospice. TC to Berta at [facility] to place DME on hold and message to [facility] to hold HHC until after hospice consult. Updated SW as well as hospitalist.
--- NOTE | 2022-05-25 11:05 | CASEMGMT ---
Addendum entered by Paula Burks 05/25/22 14:11: Uday from [facility] came to SW after meeting with family. Uday explained family is going to sign but cannot assist with transportation as pt is not a Hospice pt until discharged from [facility]. RUDI explained an Ambulance through [facility] can be set up by [facility] for pt's discharge. Uday explained equipment would be ready for placement at pt home as this is the families wishes, when pt is ready to discharge. Uday asked for updates on discharge plan as they are decided, pending pt medical procedure this day. RUDI will continue to follow and provide updates for Hospice as needed. Addendum entered by Paula Burks 05/25/22 11:59: RUDI received pc from Sravani at [facility]. Sravani shared Uday will be in to meet with pt , Juliana Peralta at 12:30pm today. SHERIE Mahajan Original Note: Social Work SW received referral for Hospice from MANJINDER Crespo. RUDI met with pt , Juliana Peralta. RUDI introduced self and role at [facility]. RUDI and Juliana Peralta discussed Hospice and Juliana Peralta confirmed family would like a Hospice referral sent. RUDI shared intent to send a referral and discussed how next steps would occur. Juliana Peralta voiced understanding and asked about transportation upon discharge. RUDI explained transportation is often set up by Hospice and if not, then an ambulance could be set up by SW. Juliana Peralta voiced appreciation and understanding. RUDI offered emotional support and encouraged Juliana Peralta to reach out with any further needs or concerns. RUDI faxed referral to [facility] ([phone]) and ([phone]). RUDI then called [facility] and reported that a referral had been sent. RUDI spoke to Keena on the referral line. Keena asked RUDI to send referral to another fax number. ([phone]). RUDI sent referral to this number as well. PLAN: Home with Hospice, pending Hospice assessment SHERIE Mahajan
[2022-05-25 11:30] LABS: Bedside Glucose 138 mg/dL (74-106)
[2022-05-25 12:20] LABS: Bedside Glucose 146 mg/dL (74-106)
--- NOTE | 2022-05-25 15:05 | EX.PCM.CON.S ---
Assessment & Plan Assessment/Plan (1) Malignant ascites: PLAN: I have been consulted in conjunction with Dr. Sibley. Dr. Sibley will plan to perform a Pleurx catheter placement under MAC local. Procedure details, risks and benefits have been explained. Patient's and daughter are agreeable to proceed with the proposed procedure. Patient and family have had the opportunity to ask and have questions answered. Plan to have patient NPO after midnight and 2 gm of Ancef to be given pre-op. Thank you for allowing us to participate in this patient's care. HPI Consult Data Date of Consult: 05/25/22 HPI Narrative HPI Narrative: ELLIE BAINS, is a 66 M who presents to the ED following hematemesis and epistaxis. Patient has metastatic esophageal cancer. Patient has difficulty with projecting his voice. Patient has been following with Dr. Olson as an outpatient. Patient was evaluated by Dr. Olson today following a CT of the abdomen/pelvis, which demonstrated significant progression of liver mets and large amount of ascites. It was recommended the patient proceed to hospice whom the family has met with and agrees to proceed. Patient defers all the answering and decision making to his . Patient slept most of the visit. He notes abdominal pressure currently, no true pain. He states he is tired. Patient had a paracentesis on April 26 for 100 ml. Patient also had an additional paracentesis last week which resulted in 2.8 liters being removed. [facility] Medical History Acute cerebrovascular accident BPH (benign prostatic hyperplasia) CVA (cerebral vascular accident) Cystic kidney disease Diabetes Erectile dysfunction Esophagus cancer Fatty liver disease, nonalcoholic HTN (hypertension) Hyperlipidemia Lung cancer Nocturnal leg cramps Other psoriasis PVC (premature ventricular contraction) Restless leg syndrome Sleep apnea Type 2 diabetes mellitus Unilateral inguinal hernia, without obstruction or gangrene, recurrent Ventricular arrhythmia Home Medications metformin 500 mg tablet 1,000 mg PO BIDCM BLOOD SUGAR 06/02/15 [History Last Taken 01/15/22] apixaban 5 mg tablet (Eliquis) 5 mg PO DAILY BLOOD THINNER 01/15/22 [History Last Taken 01/15/22] benazepril 20 mg tablet 20 mg PO DAILY BLOOD PRESSURE 01/15/22 [History Last Taken 01/14/22] empagliflozin 25 mg tablet (Jardiance) 25 mg PO DAILY DM 01/15/22 [History Last Taken 01/15/22] glipizide 5 mg tablet, extended release 24 hr 10 mg PO DAILY BLOOD SUGAR 01/15/22 [History Last Taken 01/15/22] levothyroxine 50 mcg tablet 50 mcg PO DAILY THYROID 01/15/22 [History Last Taken 01/15/22] lovastatin 40 mg tablet 40 mg PO QHS CHOLESTEROL 01/15/22 [History Last Taken 01/14/22] metoclopramide HCl 5 mg/5 mL oral solution 10 mg PO Q6H PRN NAUSEA 01/15/22 [History Last Taken 01/15/22] omeprazole 40 mg capsule,delayed release 40 mg PO DAILY GERD 01/15/22 [History Last Taken 01/15/22] Allergy/AdvReac Type Severity Reaction Status Date / Time pollen extracts Allergy Swelling Verified 05/22/22 15:08 Family History Father Heart disease Mother Heart disease Surgical History History of gastric surgery S/P laparoscopic hernia repair S/P percutaneous endoscopic gastrostomy (PEG) tube placement Social History household members: spouse Smoking Status: Former smoker how long ago did patient quit smoking: Quit ~ 15 years prior, smoked cigars prior intermittently. alcohol intake: never substance use type: does not use ROS Constitutional Constitutional: Reports systems reviewed and no addt'l complaints, except as documented Eyes Eyes: Reports systems reviewed and no addt'l complaints, except as documented ENT HEENT: Reports systems reviewed and no addt'l complaints, except as documented Cardiovascular Cardiovascular: Reports systems reviewed and no addt'l complaints, except as documented Respiratory/Chest Respiratory/Chest: Reports systems reviewed and no addt'l complaints, except as documented Gastrointestinal Gastrointestinal: Reports systems reviewed and no addt'l complaints, except as documented Genitourinary Genitourinary: Reports systems reviewed and no addt'l complaints, except as documented Musculoskeletal Musculoskeletal: Reports systems reviewed and no addt'l complaints, except as documented Integumentary Integumentary: Reports systems reviewed and no addt'l complaints, except as documented Neurologic Neurologic: Reports systems reviewed and no addt'l complaints, except as documented Psychiatric Psychiatric: Reports systems reviewed and no addt'l complaints, except as documented Endocrine Endocrinology: Reports systems reviewed and no addt'l complaints, except as documented Hematologic/Lymphatic Hematologic/Lymphatic: Reports systems reviewed and no addt'l complaints, except as documented Allergic/Immunologic Allergic/Immunologic: Reports systems reviewed and no addt'l complaints, except as documented Physical Exam Const oriented x3 General Appearance: lethargic HEENT normocephalic Eyes General Eye: normal appearance of both eyes Neck full ROM Chest Chest Narrative: Left chest port-a-cath in place. Resp normal respiratory effort Cardio Rate: regular rate Rhythm: regular rhythm GI Inspection: abdominal distention Palpation: tender other (generalized) no CVA tenderness Back/Spine no CVA tenderness Extremity normal to inspection Skin no rashes or lesions noted Neuro no focal motor deficits Psych mental status grossly normal Appearance: grossly normal Medical Records Data Medical Nutrition Assessment Dietitian: Malnutrition Criteria Met Start: 05/23/22 13:48 Freq: Status: Active Protocol: Document 05/23/22 13:48 AG (Rec: 05/23/22 13:48 [id number]) Nutrition Malnutrition Evidence of Malnutrition Exists Yes Malnutrition (moderate): Chronic Evidenced By Suboptimal Energy Intake ( Moderate),Physical Changes ( Mild) Clinical Problem Chronic Disease or Condition Related Malnutrition Etiology moderate, chronic malnutrition related to inadequate energy intake w/ increased energy needs d/t metastatic disease Signs/Symptoms as evidenced by estimated PO intake meeting <75% of estimated energy needs > 1 month; Mild muscle wasting/fat loss evident per physical exam in orbital, temporal, clavicle, and acromion areas Status Active Problem Recommendation Dietitian Recommendations/Changes recommend advance diet as tolerated to regular; will add ensure clear 120mL 4x/day w/ medpass for additional nutrition if consumed; may benefit from sodium restriction but doubtful dietary sodium intake is influencing fluid retention given poor nutritional intake. Lab / Micro Data Result Diagrams: 05/23/22 21:56 05/25/22 06:15 Labs: Laboratory Results - last 24 hr 05/23/22 04:10: Diff Path Review Reviewed 05/24/22 16:33: POC Glucose 169 H 05/24/22 23:28: POC Glucose 160 H 05/25/22 06:07: POC Glucose 138 H 05/25/22 06:15: Sodium 141, Potassium 3.6, Chloride 115 H, Carbon Dioxide 25.0, Anion Gap 1 L, BUN 24 H, Creatinine 1.25, Estim Creat Clear Calc 57.35, Est GFR (MDRD) Af Amer 74, Est GFR (MDRD) Non-Af 61, BUN/Creatinine Ratio 19.2, Glucose 142 H, Calcium 7.9 L, Total Bilirubin 0.90, Direct Bilirubin 0.27, AST 20, ALT 16, Alkaline Phosphatase 292 H, Total Protein 5.2 L, Albumin 2.4 L, Globulin 2.8, Albumin/Globulin Ratio Cancelled 05/25/22 06:15: PT 17.7 H, INR 1.5, APTT 38.6 H 05/25/22 11:52: POC Glucose 146 H Charges/Coding Visit Charges Office Visits / Consults: 67450 IP Consult L3
--- NOTE | 2022-05-25 15:08 | PN.HOSP_ITS ---
Reason for Visit Reason for Visit: Diagnoses Malignant neoplasm of esophagus, unspecified (05/22/22) Acute kidney failure, unspecified (05/22/22) Epistaxis (05/22/22) Malignant ascites (05/22/22) Subjective Subjective Follow-up for dysphagia, esophageal adenocarcinoma, low blood pressure, failure to thrive Objective Data Objective Data Vital Signs: Vital Signs Temp Pulse Resp BP Pulse Ox O2 Del Method O2 Flow Rate 98.1 F 84 20 H 83/57 L 93 Nasal Cannula 1.5 05/25/22 12:04 05/25/22 12:04 05/25/22 12:04 05/25/22 12:04 05/25/22 12:04 05/25/22 12:04 05/25/22 12:04 Oxygen Flow Rate (L/min) 1.5 Oxygen Delivery Method Nasal Cannula Weight: 167 lb 8.821 oz Body Mass Index (BMI) 24.7 Intake & Output: Intake and Output for Last 24 Hours 05/23/22 05/24/22 05/25/22 23:59 23:59 23:59 Intake Total 3480.00 / 3480.00 1304.17 / 1304.17 1460.01 / 1460.01 Output Total 300 / 300 575 / 575 Balance 3180.00 / 3180.00 729.17 / 729.17 1460.01 / 1460.01 Medical Nutrition Assessment Dietitian: Malnutrition Criteria Met Start: 05/23/22 13:48 Freq: Status: Active Protocol: Document 05/23/22 13:48 AG (Rec: 05/23/22 13:48 [id number]) Nutrition Malnutrition Evidence of Malnutrition Exists Yes Malnutrition (moderate): Chronic Evidenced By Suboptimal Energy Intake ( Moderate),Physical Changes ( Mild) Clinical Problem Chronic Disease or Condition Related Malnutrition Etiology moderate, chronic malnutrition related to inadequate energy intake w/ increased energy needs d/t metastatic disease Signs/Symptoms as evidenced by estimated PO intake meeting <75% of estimated energy needs > 1 month; Mild muscle wasting/fat loss evident per physical exam in orbital, temporal, clavicle, and acromion areas Status Active Problem Recommendation Dietitian Recommendations/Changes recommend advance diet as tolerated to regular; will add ensure clear 120mL 4x/day w/ medpass for additional nutrition if consumed; may benefit from sodium restriction but doubtful dietary sodium intake is influencing fluid retention given poor nutritional intake. Lab / Micro Data Result Diagrams: 05/23/22 21:56 05/25/22 06:15 Labs: Laboratory Results - last 24 hr 05/23/22 04:10: Diff Path Review Reviewed 05/24/22 16:33: POC Glucose 169 H 05/24/22 23:28: POC Glucose 160 H 05/25/22 06:07: POC Glucose 138 H 05/25/22 06:15: Sodium 141, Potassium 3.6, Chloride 115 H, Carbon Dioxide 25.0, Anion Gap 1 L, BUN 24 H, Creatinine 1.25, Estim Creat Clear Calc 57.35, Est GFR (MDRD) Af Amer 74, Est GFR (MDRD) Non-Af 61, BUN/Creatinine Ratio 19.2, Glucose 142 H, Calcium 7.9 L, Total Bilirubin 0.90, Direct Bilirubin 0.27, AST 20, ALT 16, Alkaline Phosphatase 292 H, Total Protein 5.2 L, Albumin 2.4 L, Globulin 2.8, Albumin/Globulin Ratio Cancelled 05/25/22 06:15: PT 17.7 H, INR 1.5, APTT 38.6 H 05/25/22 11:52: POC Glucose 146 H Physical Exam Narrative I talked to the patient's in the morning and afternoon. Before that I talked to Dr. Olson in the morning or after he saw the patient. Advised hospice care patient seen by hospice nurse. Surgeon was consulted for peritoneal cat heter. Patient is still has oral soreness due to ulcer and has difficulty in talking. Patient lethargic. Oral soreness is better. Physical exam General: Lethargic, opens eyes but does not participate in conversation. Fatigue. BMI 23.9 kg/m?, subacute malnutrition with loss of subcutaneous fat and muscle atrophy HEENT: Atraumatic, PERRLA, EOMI, Normocephalic Oral: Superficial ulceration of lateral margin of tongue, yellowish/pale patch at posterior pharyngeal wall. No thrush mucosal lesion seen. No blood clot or active bleeding. Neck: Supple, No JVD, Negative Carotid Bruits Lungs: Air entry diminished in bilateral lungs. No crepitation/rhonchi Cardiovascular: Regular rate, Regular Rhythm, Normal S1, Normal S2, No murmurs Abdomen: Bowel Sounds sluggish, Soft, ascites. Tenderness in whole abdomen mainly on right side. : No renal angle tenderness. No suprapubic tenderness. Extremities: No edema, Capillary Refill Less than 3 Seconds Skin: No rashes, No breakdown Musculoskeletal: No Tenderness to Palpation of Joints or Extremities. Moderate muscle atrophy of muscles of extremities. ROM restricted. Neurological: Cranial nerves II-XII grossly intact, DTR 2+/4 muscle strength 4/5 at major joints Psych/Mental Status: Flat affect Assessment & Plan Assessment/Plan (1) Epistaxis: PLAN: Plan The patient is a 66 y/o M who was admitted with nausea vomiting blood with hist ory of esophageal cancer mets to lung, epistaxis about 1230 afternoon on day of admission. Patient also on Eliquis due to history of blood clot. Patient also has chronic abdominal pain which is unchanged from baseline. 1. Acute episode of epistaxis potentially related to new chemotherapeutic age nt/ possible side effect:Exactly unclear whether it is epistaxis alone, emergency room or mixed. GI is consulted. Patient follows Dr. Olson. Last H&H 13/43%. Platelet count 78,000. Admission platelet count 81,000. It was 126,000 and ? therefore gradually decreasing probably chemotherapeutic adverse effect. Subacute thrombocytopenia GI is consulted. After admission patient did not had hematemesis. On clear liquid. IV fluid changed to D5 half NS for nutritional purposes. Serum sodium normal. Chloride 117. Normal anion gap metabolic acidosis with bicarb of 18. 05/24: Discussed with the GI. No procedure planned. Patient is due to see Dr. Spence on 05/26 for peritoneal tube insertion. Patient has ascites. CT abdomen from 05/17 shows small bilateral pleural effusion and atelectasis. Multiple low- attenuation masses suspicious for metastatic disease which is new finding. Diffuse ascites. Recanalization of umbilical vein suggestive of portal hypertension. Esophagus does not look thickened like he had a Nunu-Magana tear but this may be on the differential diagnosis. 05/25: As per GI, there is no any significant sign of GI bleeding at this time. It is mainly epistaxis, stomatitis. Portal hypertension due to tumor burden. 2. Severe oral ulceration probably due to mucositis and oropharyngeal candidiasis: Patient is started on Bumex and nystatin oral or topical. 05/24: Discontinue nystatin. 05/25: Not improvement in oral stomatitis. Pale thick patch/membrane on pos terior pharyngeal wall. IV fluconazole Agilis started. #3.? Esophageal cancer with metastatic disease to the lung as well as upper abdominal lymph nodes with previous chronic dysphagia: Patient PEG tube was removed 2 months ago exact reason for removal unclear. Patient still has dysphagia multiple etiologies may be due to oral ulceration and esophageal cancer. Dr. Olson is his oncologist. 05/24: The patient's was given options of palliative/hospice care but she has not made up her mind yet. She wants to take care of patient at home but I told her to be difficult and overwhelming as patient have severe abdominal pain, ascites, poor oral intake and in distress. Patient also has low blood pressure and slow metabolic rate and subacute severe malnutrition. 05/25: Following discussion with oncologist Dr. Olson yesterday evening he saw the patient in the morning and we discussed. He agrees that there is progression of tumor with increasing liver metastasis and development of large volume ascites. Decreasing liver synthetic function with elevated/prolonged PT/INR, PTT and low albumin.Karnofsky performance score 30%. Further review talked to patient's and I agree with peritoneal catheter for palliation. I consulted surgeon Dr. Sibley for peritoneal catheter while patient is high risk for anesthesia due to hypotension, overall poor general condition therefore she offered local anesthesia may be tomorrow if patient condition permits. Roxanol was ordered for pain control but pharmacy does not have Roxanol. Hospice was consulted. Patient's stated that hospice nurse told that he can be full code with hospice status. #3.? Chronic normocytic normochromic anemia: Patient H&H is on baseline. His hemoglobin varies between 12 to 14 g. #4.? Hypertension: Continue home regimen including benazepril, PRN hydralazine. #5.? Hyperlipidemia: Continue home statin regimen. #6.? Diabetes mellitus type II with neuropathy: Hold oral home regimen, currently allowing clears only, transition diet once assure no recurrent concern for GI source, Accu-Cheks with insulin sliding scale. #7.? History CVA: Holding patient antiplatelet and anticoagulant therapy, continue hypertensive regimen as well as statin therapy, diabetic regimen with alteration as noted. #8.? Restless leg syndrome: Per current list not on regimen but if necessary may add Requip. #9.? Former tobacco use: Encourage continued tobacco cessation. #10.? BPH: For current list on regimen, may add Flomax if symptomatic. #11.? Hx VTE: Hx DVT, PE following port placement, holding anticoagulation temporarily given acute presentation #1. #12.? GERD: We will maintain on IV PPI #13.? ZAC: hold home CPAP. #14.? DVT Prophylaxis: SCDs. #15.? CODE status: Patient HCPOA and living will is still not in place.?Again, encouraged patient and his to set these items up given patient disease history and ongoing active chemotherapy.? Discussed CODE status at length including difference between FULL code, DNR-CCA and DNR-CC status. Following discussions about the differences in these status, requested Full Code status. Total time of the visit including total time spent in counseling or coordination of care, (more than 50% of the total time, spent in obtaining medical information from nurses and other ancillary care providers,explaining to the patient about labs, imaging, diagnosis and management of active complex medical conditions), discussion with gastroenterology, oncologist,'s surgeon review of labs and imaging is 70 minutes Laboratory Results 05/23/22 04:10: Diff Path Review Reviewed 05/24/22 16:33: POC Glucose 169 H 05/24/22 23:28: POC Glucose 160 H 05/25/22 06:07: POC Glucose 138 H 05/25/22 06:15: Sodium 141, Potassium 3.6, Chloride 115 H, Carbon Dioxide 25.0, Anion Gap 1 L, BUN 24 H, Creatinine 1.25, Estim Creat Clear Calc 57.35, Est GFR (MDRD) Af Amer 74, Est GFR (MDRD) Non-Af 61, BUN/Creatinine Ratio 19.2, Glucose 142 H, Calcium 7.9 L, Total Bilirubin 0.90, Direct Bilirubin 0.27, AST 20, ALT 16, Alkaline Phosphatase 292 H, Total Protein 5.2 L, Albumin 2.4 L, Globulin 2.8, Albumin/Globulin Ratio Cancelled 05/25/22 06:15: PT 17.7 H, INR 1.5, APTT 38.6 H 05/25/22 11:52: POC Glucose 146 H Charges/Coding Visit Charges Inpatient E&M: 05098 Subs Hosp L3
--- NOTE | 2022-05-25 16:32 | PCM.PROGNOTE ---
Subjective Subjective Patient seems mildly depressed today. He wants to undergo percutaneous Pleurx catheter placement for malignant ascites. He is supposed to talk with hospice services today. Objective Data Objective Data Vital Signs: Vital Signs Temp Pulse Resp BP Pulse Ox O2 Del Method O2 Flow Rate 98.8 F 86 20 H 92/68 97 Nasal Cannula 1 05/25/22 16:07 05/25/22 16:07 05/25/22 16:07 05/25/22 16:07 05/25/22 16:07 05/25/22 16:07 05/25/22 16:07 Oxygen Flow Rate (L/min) 1 Oxygen Delivery Method Nasal Cannula Weight: 167 lb 8.821 oz Body Mass Index (BMI) 24.7 Intake & Output: Intake and Output for Last 24 Hours 05/23/22 05/24/22 05/25/22 23:59 23:59 23:59 Intake Total 3480.00 / 3480.00 1304.17 / 1304.17 1460.01 / 1460.01 Output Total 300 / 300 575 / 575 Balance 3180.00 / 3180.00 729.17 / 729.17 1460.01 / 1460.01 Medical Nutrition Assessment Dietitian: Malnutrition Criteria Met Start: 05/23/22 13:48 Freq: Status: Active Protocol: Document 05/23/22 13:48 AG (Rec: 05/23/22 13:48 AG [id number]) Nutrition Malnutrition Evidence of Malnutrition Exists Yes Malnutrition (moderate): Chronic Evidenced By Suboptimal Energy Intake ( Moderate),Physical Changes ( Mild) Clinical Problem Chronic Disease or Condition Related Malnutrition Etiology moderate, chronic malnutrition related to inadequate energy intake w/ increased energy needs d/t metastatic disease Signs/Symptoms as evidenced by estimated PO intake meeting <75% of estimated energy needs > 1 month; Mild muscle wasting/fat loss evident per physical exam in orbital, temporal, clavicle, and acromion areas Status Active Problem Recommendation Dietitian Recommendations/Changes recommend advance diet as tolerated to regular; will add ensure clear 120mL 4x/day w/ medpass for additional nutrition if consumed; may benefit from sodium restriction but doubtful dietary sodium intake is influencing fluid retention given poor nutritional intake. Lab / Micro Data Result Diagrams: 05/23/22 21:56 05/25/22 06:15 Labs: Laboratory Results - last 24 hr 05/23/22 04:10: Diff Path Review Reviewed 05/24/22 16:33: POC Glucose 169 H 05/24/22 23:28: POC Glucose 160 H 05/25/22 06:07: POC Glucose 138 H 05/25/22 06:15: Sodium 141, Potassium 3.6, Chloride 115 H, Carbon Dioxide 25.0, Anion Gap 1 L, BUN 24 H, Creatinine 1.25, Estim Creat Clear Calc 57.35, Est GFR (MDRD) Af Amer 74, Est GFR (MDRD) Non-Af 61, BUN/Creatinine Ratio 19.2, Glucose 142 H, Calcium 7.9 L, Total Bilirubin 0.90, Direct Bilirubin 0.27, AST 20, ALT 16, Alkaline Phosphatase 292 H, Total Protein 5.2 L, Albumin 2.4 L, Globulin 2.8, Albumin/Globulin Ratio Cancelled 05/25/22 06:15: PT 17.7 H, INR 1.5, APTT 38.6 H 05/25/22 11:52: POC Glucose 146 H Physical Exam Const oriented x3 General Appearance: lethargic HEENT normocephalic Eyes General Eye: normal appearance of both eyes Neck full ROM Chest Chest Narrative: Left chest port-a-cath in place. 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 His esophagus does not look thickened like he had an Nunu-Magana tear but that is on the differential diagnosis for upper GI bleed. With his history of radiation to the esophagus it makes esophageal varices less likely. There is a possibility that he has signs of portal gastropathy which can cause an upper GI bleed along with possible gastric varices secondary to pseudocirrhosis that is likely due to recent tumor burden seen in his liver on his recent CT scan abdomen pelvis. He has not had any more signs of GI bleeding at this time. Thrombocytopenia, likely related with underlying recent chemotherapy: Admission platelets 81, prior to this noted 05/17/2022 platelet 126 but previous to this had been normal range, recently initiated on new chemotherapeutic agent which suspect is likely the etiology, will trend CBC. Esophageal cancer with metastatic disease to the lung as well as upper abdominal lymph nodes with previous chronic dysphagia. He likely has peritoneal carcinomatosis. I spent a long time answering questions regarding percutaneous tube placed for frequent paracentesis as an option to not having frequent paracentesis as an outpatient. Patient is being seen by surgery for percutaneous Pleurx catheter placement with Dr. Sibley on Tuesday, May 26, 2022. He is experiencing hypotension, ascites, fatigue without gross jaundice like he has cirrhosis. He may benefit from midodrine therapy. Patient's family are deciding regarding his options in the future. Charges/Coding Visit Charges Inpatient E&M: 02524 Subs Hosp L3
[2022-05-25 17:35] LABS: Bedside Glucose 128 mg/dL (74-106)
[2022-05-25 19:35] LABS: Hemoglobin A1c 8.1 % (3.8-5.6)
[2022-05-26] VITALS (10 sets, daily range): BP systolic 92–113; BP diastolic 52–85; PULSE 78–86; RESP 12–18; TEMP 36.2–36.9; O2SAT 93–97; BMI 24.5
[2022-05-26 00:21] LABS: Bedside Glucose 186 mg/dL (74-106)
[2022-05-26] MEDS: Menthol/Lanolin/Calamine/Znox 113 GM Tube 1 APPLIC TOPICAL ×2 (00:40→10:13)
[2022-05-26] MEDS: Acetaminophen 650 MG/20 ML UDC PO ×2 (00:40→05:01)
[2022-05-26] MEDS: Dext 5%-0.45% NS 1,000 ML 50 ML IV (04:55)
[2022-05-26] MEDS: BMX LIQUID 180 ML 20 ML PO (05:01)
[2022-05-26 05:46] LABS: Bedside Glucose 179 mg/dL (74-106)
[2022-05-26 06:54] LABS: Absolute Lymphocyte Count 0.18 X10^3/uL (0.83-4.51); Absolute Neutrophil Count 2.7 X10^3/uL (2.0-7.7); Basophil# 0.04 X10^3/uL; Basophil% 1.2 % (0-1); Eosinophil# 0.05 X10^3/uL; Eosinophils% 1.5 % (0-5); Hematocrit 41.5 % (40-54); Hemoglobin 12.1 g/dL (13.0-16.5); Lymphocyte # 0.18 X10^3/ul (0.83-4.51); Lymphocyte % 5.2 % (19-41); Mean Corp Hgb Conc 29.2 g/dL (32-36); Mean Corpuscular Volume 89.2 fL (80-94); Monocyte# 0.47 X10^3/uL; Monocyte% 13.7 % (0-10); NRBC Flagged by Analyzer 0.6 % (0-5); Neutrophil # 2.65 X10^3/uL (2.7-7.7); Neutrophil % 77.2 % (47-70); POSITIVE COUNT YES; POSITIVE DIFFERENTIAL YES; POSITIVE MORPHOLOGY YES; Platelet Count 90 K/mm3 (150-450); RBC Distribution Width CV 24.6 % (11.6-14.6); RBC Distribution Width SD 76.3 fl (35.1-43.9); Red Blood Count 4.65 M/mm3 (4.6-6.2); White Blood Count 3.4 K/mm3 (4.4-11.0)
[2022-05-26 07:03] LABS: Differential Indicated SCAN CRITERIA MET
--- NOTE | 2022-05-26 08:03 | PCM.PN.BLA ---
Progress Note Patient resting comfortably in bed with his eyes closed upon entering the room. No family is present at this time. Per patient's nurse, plan is to proceed with proposed pleurex catheter placement under local this afternoon with Dr. Sibley. Awaiting family to sign the consent. Patient's blood pressure seems improved this morning.
[2022-05-26 08:17] LABS: Anisocytosis 2+; Ovalocyte 1+; Platelet Estimate SLT DEC (ADEQ)
--- NOTE | 2022-05-26 09:45 | CASEMGMT ---
Social Work SW received PC from Hospice worker who explained pt's hospital bed is due to be delivered to pt home within the next 30 minutes to one and a half hours. Worker explained there are no family members at the home now and the bed cannot be delivered if no one is present. SW in to pt room to share this information with pt family. SW shared information and pt family sending someone to home to accept bed form Hospice. Family also asked about transportation and SW explained an ambulance can be set to take pt home. Family voiced understanding. PLAN: Home with Hospice SHERIE Mahajan
--- NOTE | 2022-05-26 10:38 | DCINST_ITS ---
Discharge Instructions Diet Discharge Diet: No restrictions Activity Discharge Activity: May Not Drive Dressing / Incision Call your doctor if you observe: Calf discomfort (Home hospice care) Follow Up Care Test Results: Test results from this visit will be discussed in further detail at your follow- up appointment, if applicable. Discharge Plan Admission Admit Date/Time: 05/25/22 15:41 Primary Reason for Your Visit: Ca oesphageal with liver mets, failure to thrive Attending Provider: Mino Yan Primary Care Provider: Job Cohen Consulting Providers: Nicole Leiva ; Juan Garzon ; Eliza Burns ; Vandana Mckeon ; Daryn Reyes ; Bon Olson ; Aimee Sibley ; Josephine Castro ; Wade Villeda ; Jillian Calderon ; Sahara Askew ; Amanda Mehta SENIOR WAREHOUSE CLERK Discharge Orders/Prescriptions Prescriptions: New atorvastatin 10 mg Tablet 10 mg PO QHS 30 Days Qty: 30 0RF lidocaine HCl [Lidocaine Viscous] 2 % Solution 20 ml PO Q4H PRN PRN (Reason: mouth sore) 30 Days Qty: 100 5RF Chloraseptic Sore Throat 6-10 mg Lozenge 1 johanne mucous membrane Q2H PRN PRN (Reason: SORE THROAT) Qty: 0 0RF sennosides-docusate sodium [Stool Softener-Stimulant Laxat] 8.6-50 mg Tablet 2 tab PO BID PRN PRN (Reason: Constipation) Qty: 0 0RF midodrine 5 mg Tablet 5 mg PO TIDCM 30 Days Qty: 90 0RF guaifenesin 100 mg/5 mL Liquid 20 ml PO Q4H PRN PRN (Reason: COUGH) Qty: 0 0RF fluconazole 100 mg tablet 200 mg PO DAILY 7 Days Qty: 14 0RF Continued metoclopramide HCl 5 mg/5 mL solution 10 mg PO Q6H PRN (Reason: NAUSEA) Label Comments: Take 10 mL by mouth every 6 hours as needed. omeprazole 40 mg capsule,delayed release(DR/EC) 40 mg PO DAILY Label Comments: Take 1 capsule by mouth once daily. levothyroxine 50 mcg tablet 50 mcg PO DAILY Label Comments: Take 1 tablet by mouth once daily. on an empty stomach. Jardiance 25 mg tablet 25 mg PO DAILY Label Comments: Take 1 (ONE) tablet once daily in the morning glipizide 5 mg tablet extended release 24hr 10 mg PO DAILY 30 Days Qty: 0 0RF Label Comments: TAKE 1 TABLET BY MOUTH ONCE DAILY Rx Instructions: Hold if glucose less than 130 mg/dl Held metformin 500 MG tablet 1,000 mg PO BIDCM Hold Instructions: Hold until patient doesn't have adequate diet Label Comments: BLOOD SUGAR benazepril 20 mg tablet 20 mg PO DAILY Hold Instructions: Hold for SBP less than 130 mmHg Label Comments: TAKE 1 TABLET BY MOUTH DAILY Eliquis 5 mg tablet 5 mg PO DAILY Hold Instructions: Hold for thrombocytopenia, hemoptysis and suspected upper GI bleed Label Comments: TAKE 1 TABLET BY MOUTH TWICE DAILY Discontinued lovastatin 40 mg tablet 40 mg PO QHS Label Comments: Take 1 tablet by mouth daily at bedtime. Referrals / Follow Up: Job Cohen MD [Primary Care Provider] - Disposition Disposition (needs filled in before D/C Order can be placed): Hospice in Home
--- NOTE | 2022-05-26 11:13 | CASEMGMT ---
Social Work SW approached by MANJINDER DEVINE and several other staff on [facility] who are attempting to understand Hospice services and if pt is required to be DNR to have Hsopice. SW called Sravani at [facility] to discuss. Sravani explained that pt can receive all hospice services and be a full code but pt's family needs to understand that if pt arrests at home that they need to call 911 and have an ambulance come as Hospice cannot respond to a situation such as that. Sravani stated if pt arrests and 911 is called for medical intervention and taken to the hospital that Hospice would be revoked for treatment. Then the family would have the option to re-sign with Hospice. RUDI shared this information with MANJINDER DEVINE and other staff. SHERIE Mahajan
--- NOTE | 2022-05-26 11:14 | CASEMGMT ---
Referral cancelled with [facility] at this time.
[2022-05-26] MEDS: Lactated Ringers 1,000 ML 15 ML IV (12:29)
[2022-05-26 12:45] LABS: Bedside Glucose 129 mg/dL (74-106)
[2022-05-26] MEDS: Cefazolin 2 GM in 0.9% Normal Saline 100 ML IV (13:57)
[2022-05-26] MEDS: Bupivacaine 0.25% 30 ML Vial (14:03)
--- NOTE | 2022-05-26 14:20 | PCM.OPRPT ---
Report of Operation Date of Procedure: 05/26/22 Pre-Operative Diagnosis: Malignant ascites Post-Operative Diagnosis: Same Surgery/Procedure Performed:: Placement of abdominal Pleurx catheter left lower quadrant Surgeon: Aimee Sibley Type of Anesthesia: MAC/Supplemental Anesthesiologist: Leonel Arenas Special Medications: Ancef 2 g IV x1 Specimen's removed: None Drains: About 2500 cc serous Estimated Blood Loss (mL): <10 cc Description of Procedure: Patient was brought to the operating placed spine on operating table. Timeout was completed verifying correct patient procedure, site, positioning, special, prior beginning procedure. A very light MAC anesthesia was induced due to pt bp. Ultrasound used to localize area at the best area to access for fluid collection. Left lower quadrant was chosen. Left lower quadrant was prepped draped in usual sterile fashion. The Pleurx catheter needle and Angiocath placed serous fluid was obtained needle was removed. Guidewire was placed. This was visualized under fluoroscopy. Local anesthesia was used along the tunnel track superiorly. The catheter was tunneled to the entry site. The introducer/sheath was placed into the abdomen under visualization with fluoroscopy. Introducer was removed and the catheter was placed. Sheath was removed. Fluoroscopy confirmed catheter in the abdomen. This was hooked up to suction at 2200cc out with suction serous fluid and another 300 cc while placing the catheter. Incision was sutured with 3-0 nylon suture. Catheter was dressed with 4 x 4's and foam padding and OpSite. Patient tolerated procedure well. Patient was taken to the postanesthesia care unit in stable condition. Grafts/Implants Used: PleurX catheter LOT [id number] Complications none
--- NOTE | 2022-05-26 14:51 | DS.PCM_ITS ---
Providers Date of Admission: 05/25/22 Date of Discharge: 05/26/22 Primary Care Physician: Dr. Job Cohen MD Consultations 05/24/22 18:38 Consult: Oncology/Hematology Routine Consulting Provider: KERI Hem/Onc Sukhjinder Reason for Consult: Esophageal adeno, poor prognosis EMERGENT Consult: No Notified: Yes Date Notified: 05/24/22 Time Notified: 18:40 Method of Notification: Verbal 05/25/22 09:34 Consult: General Surgery Routine Consulting Provider: Aimee Sibley Reason for Consult: peritoneal catheter for recurrent malignant ascites EMERGENT Consult: No Notified: Yes Date Notified: 05/25/22 Time Notified: 09:34 Method of Notification: Verbal 05/25/22 10:47 Consult: Hospice / Palliative Care Routine Consulting Provider: [facility] Reason for Consult: esophageal cancer EMERGENT Consult: No Notified: Yes Date Notified: 05/25/22 Time Notified: 11:59 Method of Notification: Answering Service Method of Consult:: In-Person 05/26/22 08:10 Consult: Onc/Wound/flocculator operator Routine Comment: Reason for Consult:: Pleurex catheter placement, drain supplies Comments:: Patient to go home with hospice at discharge today Reason For Visit: QUESTIONABLE HEMATEMESIS VS EPISTAXIS Diagnosis Discharge Diagnosis (1) Epistaxis: Status: Acute Code(s): R04.0 - Epistaxis (2) Esophageal cancer: Status: Acute Code(s): C15.9 - Malignant neoplasm of esophagus, unspecified Plan The patient is a 66 y/o M who was admitted with nausea vomiting blood with history of esophageal cancer mets to lung, epistaxis about 1230 afternoon on day of admission. Patient also on Eliquis due to history of blood clot. Patient also has chronic abdominal pain which is unchanged from baseline. 1. Acute episode of epistaxis potentially related to new chemotherapeutic agent/ possible side effect:Exactly unclear whether it is epistaxis alone, emergency room or mixed. GI is consulted. Patient follows Dr. Olson. Last H&H 13/43%. Platelet count 78,000. Admission platelet count 81,000. It was 126,000 and ? therefore gradually decreasing probably chemotherapeutic adverse effect. Subacute thrombocytopenia GI is consulted. After admission patient did not had hematemesis. On clear liquid. IV fluid changed to D5 half NS for nutritional purposes. Serum sodium normal. Chloride 117. Normal anion gap metabolic acidosis with bicarb of 18. 05/24: Discussed with the GI. No procedure planned. Patient is due to see Dr. Spence on 05/26 for peritoneal tube insertion. Patient has ascites. CT abdomen from 05/17 shows small bilateral pleural effusion and atelectasis. Multiple low- attenuation masses suspicious for metastatic disease which is new finding. Diffuse ascites. Recanalization of umbilical vein suggestive of portal hypertension. Esophagus does not look thickened like he had a Nunu-Magana tear but this may be on the differential diagnosis. 05/25: As per GI, there is no any significant sign of GI bleeding at this time. It is mainly epistaxis, stomatitis. Portal hypertension due to tumor burden. 05/26: Patient is on PPI continued. Rest as mentioned above. 2. Severe oral ulceration probably due to mucositis and oropharyngeal candidiasis: Patient is started on Bumex and nystatin oral or topical. 05/24: Discontinue nystatin. 05/25: Not improvement in oral stomatitis. Pale thick patch/membrane on posterior pharyngeal wall. IV fluconazole Agilis started. 05/26: Patient given prescription for fluconazole, Bumex. #3.? Esophageal cancer with metastatic disease to the lung as well as upper abdominal lymph nodes with previous chronic dysphagia: Patient PEG tube was removed 2 months ago exact reason for removal unclear. Patient still has dysphagia multiple etiologies may be due to oral ulceration and esophageal cancer. Dr. Olson is his oncologist. 05/24: The patient's was given options of palliative/hospice care but she has not made up her mind yet. She wants to take care of patient at home but I told her to be difficult and overwhelming as patient have severe abdominal pain, ascites, poor oral intake and in distress. Patient also has low blood pressure and slow metabolic rate and subacute severe malnutrition. 05/25: Following discussion with oncologist Dr. Olson yesterday evening he saw the patient in the morning and we discussed. He agrees that there is progression of tumor with increasing liver metastasis and development of large volume ascites. Decreasing liver synthetic function with elevated/prolonged PT/INR, PTT and low albumin.Karnofsky performance score 30%. Further review talked to patient's and I agree with peritoneal catheter for palliation. I consulted surgeon Dr. Sibley for peritoneal catheter while patient is high risk for anesthesia due to hypotension, overall poor general condition therefore she offered local anesthesia may be tomorrow if patient condition permits. Roxanol was ordered for pain control but pharmacy does not have Roxanol. Hospice was consulted. Patient's stated that hospice nurse told that he can be full code with hospice status. 05/26: Patient has abdominal Pleurx catheter in left lower quadrant. Discussed with the surgeon. About 2500 mL serous fluid drained. 25 g IV albumin infusion ordered. Patient can go home with hospice care after albumin infusion. Patient also has color changes in toes. Right great toe, small muscle atrophy with the skin overlying bone. Some bluish discoloration on left foot toes. Overall it seems mainly due to chemotherapeutic adverse effect. Less likely from midodrine. Prescription for midodrine given with holding parameter if systolic blood pressure more than 90 mmHg. #3.? Chronic normocytic normochromic anemia: Patient H&H is on baseline. His hemoglobin varies between 12 to 14 g. 05/26: Hemoglobin is on baseline 12.1 g. Platelet count 90,000. Mild leukopenia. ANC 2.7 thousand. Patient is not candidate for oral anticoagulant agent therefore Eliquis held. #4.? Hypertension: BP was on lower side during hospital course, mostly SBP 90s. Most recent 107/73, 112/85. Hold antihypertensive medications. #5.? Hyperlipidemia: Continue home statin regimen. Atorvastatin decreased to 10 mg daily. #6.? Diabetes mellitus type II with neuropathy: Hold oral home regimen, currently allowing clears only, transition diet once assure no recurrent concern for GI source, Accu-Cheks with insulin sliding scale. 05/26: Glucose profile is between 129, mostly less than 150. Patient on Jardian ce low-dose 25 mg daily continued. Glipizide continued with holding parameters. #7.? History CVA: Holding patient antiplatelet and anticoagulant therapy, continue hypertensive regimen as well as statin therapy, diabetic regimen with alteration as noted. #8.? Restless leg syndrome: Controlled #9.? Former tobacco use: Encourage continued tobacco cessation. #10.? BPH: For current list on regimen, may add Flomax if symptomatic. #11.? Hx VTE: Hx DVT, PE following port placement, holding anticoagulation temporarily given acute presentation #1. #12.? GERD: We will maintain on IV PPI #13.? ZAC: hold home CPAP. #14.? DVT Prophylaxis: SCDs. Discharge medication reconciliation done. Discharge follow-up instructions completed. Discharge process discussed with the patient and all questions were answered to patient's satisfaction. Discharged home with home hospice. Total time spent, exact 35 minutes on discharge meds reconciliation, examination, coordination of care with nurses and ancillary staff, review of imaging and blood test and discussion with the patient on follow-up instru ctions. Laboratory Results 05/25/22 06:15: Hemoglobin A1c 8.1 H 05/25/22 17:11: POC Glucose 128 H 05/25/22 23:15: POC Glucose 186 H 05/26/22 05:04: POC Glucose 179 H 05/26/22 05:50: WBC 3.4 L, RBC 4.65, Hgb 12.1 L, Hct 41.5, MCV 89.2, MCH 26.0 L, MCHC 29.2 L, RDW Std Deviation 76.3 H, RDW Coeff of Chuck 24.6 H, Plt Count 90 L, MPV TNP, Immature Gran % (Auto) 1.200 H, Neut % (Auto) 77.2 H, Lymph % (Auto) 5.2 L, [place] % (Auto) 13.7 H, Eos % (Auto) 1.5, Baso % (Auto) 1.2 H, Absolute Neuts (auto) 2.7, Absolute Lymphs (auto) 0.18 L, Nucleated RBC % 0.6, Diff Path Review June, Platelet Estimate SLT DEC, Anisocytosis 2+, Ovalocytes 1+ 05/26/22 12:17: POC Glucose 129 H Laboratory Results 05/23/22 04:10: Diff Path Review Reviewed 05/24/22 16:33: POC Glucose 169 H 05/24/22 23:28: POC Glucose 160 H 05/25/22 06:07: POC Glucose 138 H 05/25/22 06:15: Sodium 141, Potassium 3.6, Chloride 115 H, Carbon Dioxide 25.0, Anion Gap 1 L, BUN 24 H, Creatinine 1.25, Estim Creat Clear Calc 57.35, Est GFR (MDRD) Af Amer 74, Est GFR (MDRD) Non-Af 61, BUN/Creatinine Ratio 19.2, Glucose 142 H, Calcium 7.9 L, Total Bilirubin 0.90, Direct Bilirubin 0.27, AST 20, ALT 16, Alkaline Phosphatase 292 H, Total Protein 5.2 L, Albumin 2.4 L, Globulin 2.8, Albumin/Globulin Ratio Cancelled 05/25/22 06:15: PT 17.7 H, INR 1.5, APTT 38.6 H 05/25/22 11:52: POC Glucose 146 H Medications at Discharge Home Medications metformin 500 mg tablet 1,000 mg PO BIDCM BLOOD SUGAR 06/02/15 apixaban 5 mg tablet (Eliquis) 5 mg PO DAILY BLOOD THINNER 01/15/22 benazepril 20 mg tablet 20 mg PO DAILY BLOOD PRESSURE 01/15/22 empagliflozin 25 mg tablet (Jardiance) 25 mg PO DAILY DM 01/15/22 levothyroxine 50 mcg tablet 50 mcg PO DAILY THYROID 01/15/22 metoclopramide HCl 5 mg/5 mL oral solution 10 mg PO Q6H PRN NAUSEA 01/15/22 omeprazole 40 mg capsule,delayed release 40 mg PO DAILY GERD 01/15/22 atorvastatin 10 mg tablet 10 mg PO QHS 30 days #30 tabs 05/26/22 benzocaine 6 mg-menthol 10 mg lozenges (Chloraseptic Sore Throat) 1 johanne mucous membrane Q2H PRN PRN SORE THROAT #0 ea 05/26/22 fluconazole 100 mg tablet 200 mg PO DAILY 7 days #14 tabs 05/26/22 glipizide 5 mg tablet, extended release 24 hr 10 mg PO DAILY BLOOD SUGAR 30 days #0 tabs 05/26/22 guaifenesin 100 mg/5 mL oral liquid 20 ml PO Q4H PRN PRN COUGH #0 mL 05/26/22 lidocaine HCl 2 % mucosal solution (Lidocaine Viscous) 20 ml PO Q4H PRN PRN mouth sore 30 days #100 mL 05/26/22 midodrine 5 mg tablet 5 mg PO TIDCM 30 days #90 tabs 05/26/22 sennosides 8.6 mg-docusate sodium 50 mg tablet (Stool Softener-Stimulant Laxative) 2 tab PO BID PRN PRN Constipation #0 tabs 05/26/22 Physical Exam Narrative I talked to the patient's , his son and daughter present in the room. I talked to Dr. Olson yesterday 2 times. Patient is full code with home hospice care. Patient is still has oral soreness due to ulcer and has difficulty in talking but he states is getting better. Patient is still he took some Jell-O, Sips of Glucerna. Oral soreness is better. Pt had LLQ peritoneal catheter Physical exam General: Lethargic, opens eyes but does not participate in conversation. Fatigue. BMI 23.9 kg/m?, subacute malnutrition with loss of subcutaneous fat and muscle atrophy HEENT: Atraumatic, PERRLA, EOMI, Normocephalic Oral: Superficial ulceration of lateral margin of tongue, yellowish/pale patch at posterior pharyngeal wall. No blood clot or active bleeding. Neck: Supple, No JVD, Negative Carotid Bruits Lungs: Air entry diminished in bilateral lungs. No crepitation/rhonchi Cardiovascular: Regular rate, Regular Rhythm, Normal S1, Normal S2, No murmurs Abdomen: Bowel Sounds sluggish, Soft, ascites. Tenderness in whole abdomen mainly on right side. : No renal angle tenderness. No suprapubic tenderness. Extremities: No edema, Capillary Refill Less than 3 Seconds Skin: Purplish tinge over left foot toes. Right great toe purplish tinge with atrophy of distal small muscle, ischemic covering the bone. Right great toe muscle atrophy is not acute. Paresthesia probably from chemotherapy adverse effect. Musculoskeletal: No Tenderness to Palpation of Joints or Extremities. Moderate muscle atrophy of muscles of extremities. ROM restricted. Neurological: Cranial nerves II-XII grossly intact, DTR 2+/4 muscle strength 4/5 at major joints Psych/Mental Status: Flat affect Medical Records Data Medical Nutrition Assessment Dietitian: Malnutrition Criteria Met Start: 05/23/22 13:48 Freq: Status: Active Protocol: Document 05/23/22 13:48 (Rec: 05/23/22 13:48 [id number]) Nutrition Malnutrition Evidence of Malnutrition Exists Yes Malnutrition (moderate): Chronic Evidenced By Suboptimal Energy Intake ( Moderate),Physical Changes ( Mild) Clinical Problem Chronic Disease or Condition Related Malnutrition Etiology moderate, chronic malnutrition related to inadequate energy intake w/ increased energy needs d/t metastatic disease Signs/Symptoms as evidenced by estimated PO intake meeting <75% of estimated energy needs > 1 month; Mild muscle wasting/fat loss evident per physical exam in orbital, temporal, clavicle, and acromion areas Status Active Problem Recommendation Dietitian Recommendations/Changes recommend advance diet as tolerated to regular; will add ensure clear 120mL 4x/day w/ medpass for additional nutrition if consumed; may benefit from sodium restriction but doubtful dietary sodium intake is influencing fluid retention given poor nutritional intake. Weight / BMI Weight Weight: 165 lb 12.602 oz Body Mass Index (BMI) 24.5 ABG / Lab / Microbiology Data Result Diagrams: 05/26/22 05:50 05/25/22 06:15 Laboratory: Laboratory Results - last 24 hr 05/25/22 06:15: Hemoglobin A1c 8.1 H 05/25/22 17:11: POC Glucose 128 H 05/25/22 23:15: POC Glucose 186 H 05/26/22 05:04: POC Glucose 179 H 05/26/22 05:50: WBC 3.4 L, RBC 4.65, Hgb 12.1 L, Hct 41.5, MCV 89.2, MCH 26.0 L, MCHC 29.2 L, RDW Std Deviation 76.3 H, RDW Coeff of Chuck 24.6 H, Plt Count 90 L, MPV TNP, Immature Gran % (Auto) 1.200 H, Neut % (Auto) 77.2 H, Lymph % (Auto) 5.2 L, [place] % (Auto) 13.7 H, Eos % (Auto) 1.5, Baso % (Auto) 1.2 H, Absolute Neuts (auto) 2.7, Absolute Lymphs (auto) 0.18 L, Nucleated RBC % 0.6, Diff Path Review May foll, Platelet Estimate SLT DEC, Anisocytosis 2+, Ovalocytes 1+ 05/26/22 12:17: POC Glucose 129 H D/C Instructions Discharge Diet: No restrictions Call your doctor if you observe: Calf discomfort (Home hospice care) Meaningful Use Info Meaningful Use Diagnoses (Choose all that apply): None applicable Discharge Plan Admission Admit Date/Time: 05/25/22 15:41 Primary Reason for Your Visit: Ca oesphageal with liver mets, failure to thrive Attending Provider: Mino Yan Primary Care Provider: Job Cohen Consulting Providers: Nicole Leiva ; Juan Garzon ; Eliza Burns ; Vandana Mckeon ; Daryn Reyes ; Bon Olson ; Aimee Sibley ; Josephine Castro ; Wade Villeda ; Jillian Calderon ; Sahara Askew ; Amanda Mehta LAMP SHADE ASSEMBLER Instructions Additional Instructions / Restrictions: Hold midodrine if SBP more than 90 mmHg. Discharge Orders/Prescriptions Prescriptions: New atorvastatin 10 mg Tablet 10 mg PO QHS 30 Days Qty: 30 0RF lidocaine HCl [Lidocaine Viscous] 2 % Solution 20 ml PO Q4H PRN PRN (Reason: mouth sore) 30 Days Qty: 100 5RF Chloraseptic Sore Throat 6-10 mg Lozenge 1 johanne mucous membrane Q2H PRN PRN (Reason: SORE THROAT) Qty: 0 0RF sennosides-docusate sodium [Stool Softener-Stimulant Laxat] 8.6-50 mg Tablet 2 tab PO BID PRN PRN (Reason: Constipation) Qty: 0 0RF midodrine 5 mg Tablet 5 mg PO TIDCM 30 Days Qty: 90 0RF guaifenesin 100 mg/5 mL Liquid 20 ml PO Q4H PRN PRN (Reason: COUGH) Qty: 0 0RF fluconazole 100 mg tablet 200 mg PO DAILY 7 Days Qty: 14 0RF Continued metoclopramide HCl 5 mg/5 mL solution 10 mg PO Q6H PRN (Reason: NAUSEA) Label Comments: Take 10 mL by mouth every 6 hours as needed. omeprazole 40 mg capsule,delayed release(DR/EC) 40 mg PO DAILY Label Comments: Take 1 capsule by mouth once daily. levothyroxine 50 mcg tablet 50 mcg PO DAILY Label Comments: Take 1 tablet by mouth once daily. on an empty stomach. Jardiance 25 mg tablet 25 mg PO DAILY Label Comments: Take 1 (ONE) tablet once daily in the morning glipizide 5 mg tablet extended release 24hr 10 mg PO DAILY 30 Days Qty: 0 0RF Label Comments: TAKE 1 TABLET BY MOUTH ONCE DAILY Rx Instructions: Hold if glucose less than 130 mg/dl Held metformin 500 MG tablet 1,000 mg PO BIDCM Hold Instructions: Hold until patient doesn't have adequate diet Label Comments: BLOOD SUGAR benazepril 20 mg tablet 20 mg PO DAILY Hold Instructions: Hold for SBP less than 130 mmHg Label Comments: TAKE 1 TABLET BY MOUTH DAILY Eliquis 5 mg tablet 5 mg PO DAILY Hold Instructions: Hold for thrombocytopenia, hemoptysis and suspected upper GI bleed Label Comments: TAKE 1 TABLET BY MOUTH TWICE DAILY Discontinued lovastatin 40 mg tablet 40 mg PO QHS Label Comments: Take 1 tablet by mouth daily at bedtime. Referrals / Follow Up: Job Cohen MD [Primary Care Provider] - Disposition Disposition (needs filled in before D/C Order can be placed): Hospice in Home Charges/Coding Visit Charges Inpatient E&M: 68632 Disch Hosp >30min
--- NOTE | 2022-05-26 15:02 | PHA.DC.MR ---
Pharmacy Service has performed discharge medication reconciliation for this patient. The patient's discharge medication list was reviewed for discrepancies and discrepancies were resolved. Home Medications metformin 500 mg tablet 1,000 mg PO BIDCM BLOOD SUGAR 06/02/15 apixaban 5 mg tablet (Eliquis) 5 mg PO DAILY BLOOD THINNER 01/15/22 benazepril 20 mg tablet 20 mg PO DAILY BLOOD PRESSURE 01/15/22 empagliflozin 25 mg tablet (Jardiance) 25 mg PO DAILY DM 01/15/22 levothyroxine 50 mcg tablet 50 mcg PO DAILY THYROID 01/15/22 metoclopramide HCl 5 mg/5 mL oral solution 10 mg PO Q6H PRN NAUSEA 01/15/22 omeprazole 40 mg capsule,delayed release 40 mg PO DAILY GERD 01/15/22 atorvastatin 10 mg tablet 10 mg PO QHS 30 days #30 tabs 05/26/22 benzocaine 6 mg-menthol 10 mg lozenges (Chloraseptic Sore Throat) 1 johanne mucous membrane Q2H PRN PRN SORE THROAT #0 ea 05/26/22 fluconazole 100 mg tablet 200 mg PO DAILY 7 days #14 tabs 05/26/22 glipizide 5 mg tablet, extended release 24 hr 10 mg PO DAILY BLOOD SUGAR 30 days #0 tabs 05/26/22 guaifenesin 100 mg/5 mL oral liquid 20 ml PO Q4H PRN PRN COUGH #0 mL 05/26/22 lidocaine HCl 2 % mucosal solution (Lidocaine Viscous) 20 ml PO Q4H PRN PRN mouth sore 30 days #100 mL 05/26/22 midodrine 5 mg tablet 5 mg PO TIDCM 30 days #90 tabs 05/26/22 sennosides 8.6 mg-docusate sodium 50 mg tablet (Stool Softener-Stimulant Laxative) 2 tab PO BID PRN PRN Constipation #0 tabs 05/26/22
--- NOTE | 2022-05-26 15:45 | CASEMGMT ---
Social Work SW spent time throughout the day with family on several occasions offering support and answering questions. SW reassured family on transport via ambulance and other situaitons that were being taken care of via hospital staff. SW called Sravani at Hospice to discuss d/c plan. Sravani requested SW include Sravani's phone number to discharge info to coordinate once pt is ready for d/c. SW completed green sheet and placed on pt chart. Updated [employer] Scout of plan and need to call Hospice with transport time so a Hospice nurse can be sent to pt home prior to pt arriving home. field secretary voiced understand. PLAN: Home with Hospice SHERIE Mahajan
[2022-05-26] MEDS: Albumin Human 25% (100 mL) 25 GM/100 ML BAG IV (15:55)
[2022-05-26] MEDS: Ensure Clear 120 ML Liquid PO (16:03)
--- NOTE | 2022-05-26 17:14 | PN_ITS ---
Subjective Subjective Patient underwent percutaneous placement of drainage catheter for his malignant ascites. Objective Data Objective Data Vital Signs: Vital Signs Temp Pulse Resp BP Pulse Ox O2 Del Method O2 Flow Rate 98.2 F 79 18 97/73 97 Nasal Cannula 1.5 05/26/22 15:34 05/26/22 15:34 05/26/22 15:34 05/26/22 15:34 05/26/22 15:34 05/26/22 15:39 05/26/22 15:34 Oxygen Flow Rate (L/min) 1.5 Oxygen Delivery Method Nasal Cannula Weight: 165 lb 12.602 oz Body Mass Index (BMI) 24.5 Intake & Output: Intake and Output for Last 24 Hours 05/24/22 05/25/22 05/26/22 23:59 23:59 23:59 Intake Total 1304.17 / 1304.17 600 / 600 Output Total 575 / 575 200 / 200 Balance 729.17 / 729.17 400 / 400 Medical Nutrition Assessment Dietitian: Malnutrition Criteria Met Start: 05/23/22 13:48 Freq: Status: Active Protocol: Document 05/23/22 13:48 AG (Rec: 05/23/22 13:48 AG [id number]) Nutrition Malnutrition Evidence of Malnutrition Exists Yes Malnutrition (moderate): Chronic Evidenced By Suboptimal Energy Intake ( Moderate),Physical Changes ( Mild) Clinical Problem Chronic Disease or Condition Related Malnutrition Etiology moderate, chronic malnutrition related to inadequate energy intake w/ increased energy needs d/t metastatic disease Signs/Symptoms as evidenced by estimated PO intake meeting <75% of estimated energy needs > 1 month; Mild muscle wasting/fat loss evident per physical exam in orbital, temporal, clavicle, and acromion areas Status Active Problem Recommendation Dietitian Recommendations/Changes recommend advance diet as tolerated to regular; will add ensure clear 120mL 4x/day w/ medpass for additional nutrition if consumed; may benefit from sodium restriction but doubtful dietary sodium intake is influencing fluid retention given poor nutritional intake. Lab / Micro Data Result Diagrams: 05/26/22 05:50 05/25/22 06:15 Labs: Laboratory Results - last 24 hr 05/25/22 06:15: Hemoglobin A1c 8.1 H 05/25/22 17:11: POC Glucose 128 H 05/25/22 23:15: POC Glucose 186 H 05/26/22 05:04: POC Glucose 179 H 05/26/22 05:50: WBC 3.4 L, RBC 4.65, Hgb 12.1 L, Hct 41.5, MCV 89.2, MCH 26.0 L, MCHC 29.2 L, RDW Std Deviation 76.3 H, RDW Coeff of Chuck 24.6 H, Plt Count 90 L, MPV TNP, Immature Gran % (Auto) 1.200 H, Neut % (Auto) 77.2 H, Lymph % (Auto) 5.2 L, [place]field % (Auto) 13.7 H, Eos % (Auto) 1.5, Baso % (Auto) 1.2 H, Absolute Neuts (auto) 2.7, Absolute Lymphs (auto) 0.18 L, Nucleated RBC % 0.6, Diff Path Review May , Platelet Estimate SLT DEC, Anisocytosis 2+, Ovalocytes 1+ 05/26/22 12:17: POC Glucose 129 H Physical Exam Const oriented x3 General Appearance: lethargic HEENT normocephalic Eyes General Eye: normal appearance of both eyes Neck full ROM Chest Chest Narrative: Left chest port-a-cath in place. 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 His esophagus does not look thickened like he had an Nunu-Magana tear but that is on the differential diagnosis for upper GI bleed. With his history of radiation to the esophagus it makes esophageal varices less likely. There is a possibility that he has signs of portal gastropathy which can cause an upper GI bleed along with possible gastric varices secondary to pseudocirrhosis that is likely due to recent tumor burden seen in his liver on his recent CT scan abdomen pelvis. He has not had any more signs of GI bleeding at this time. Thrombocytopenia, likely related with underlying recent chemotherapy: Admission platelets 81, prior to this noted 05/17/2022 platelet 126 but previous to this had been normal range, recently initiated on new chemotherapeutic agent which suspect is likely the etiology, will trend CBC. Esophageal cancer with metastatic disease to the lung as well as upper abdominal lymph nodes with previous chronic dysphagia. He likely has peritoneal carcinomatosis. I spent a long time answering questions regarding percutaneous tube placed for frequent paracentesis as an option to not having frequent paracentesis as an outpatient. Patient is being seen by surgery for percuta neous Pleurx catheter placement with Dr. Sibley on Tuesday, May 26, 2022. He is experiencing hypotension, ascites, fatigue without gross jaundice like he has cirrhosis. He may benefit from midodrine therapy. Patient's family are deciding regarding his options in the future. Charges/Coding Visit Charges Inpatient E&M: 21518 Subs Hosp L3
[2022-05-26 17:15] LABS: Bedside Glucose 131 mg/dL (74-106)
[2022-05-26] MEDS: 0.9% Saline Lock 10 ML Syringe IV (17:58)
[2022-05-26] MEDS: Midodrine HCl 5 MG Tablet 10 MG PO (17:59)
--- NOTE | 2022-05-26 18:46 | PN.ONC_ITS ---
Subjective Subjective Patient seen and examined earlier this morning. No nausea. Abdomninal pain the same. Physical Exam Const alert Eyes no scleral icterus Resp normal respiratory effort Cardio regular rhythm GI GI Narrative: Tense ascites. Vital Signs Temperature 98.2 F 05/26/22 15:34 Temperature Source Axillary 05/26/22 15:34 Pulse Rate 79 05/26/22 15:34 Pulse Strength Normal (2+) 05/24/22 20:57 Respiratory Rate 18 05/26/22 15:34 Respiratory Effort Non-Labored 05/26/22 15:39 Respiratory Depth Normal 05/26/22 15:39 Respiratory Pattern Normal 05/26/22 15:39 Blood Pressure 97/73 05/26/22 15:34 Blood Pressure Mean 81 05/26/22 15:34 Blood Pressure Source Monitor 05/26/22 15:34 Blood Pressure Position Semi-Fowlers 05/26/22 15:34 Blood Pressure Location Left Arm 05/26/22 15:34 Baseline BP 111/71 05/26/22 14:59 Pulse Ox 97 05/26/22 15:34 Oxygen Delivery Method Nasal Cannula 05/26/22 15:39 Oxygen Flow Rate (L/min) 1.5 05/26/22 15:34 Laboratory Results - last 24 hr 05/25/22 06:15: Hemoglobin A1c 8.1 H 05/25/22 23:15: POC Glucose 186 H 05/26/22 05:04: POC Glucose 179 H 05/26/22 05:50: WBC 3.4 L, RBC 4.65, Hgb 12.1 L, Hct 41.5, MCV 89.2, MCH 26.0 L, MCHC 29.2 L, RDW Std Deviation 76.3 H, RDW Coeff of Chuck 24.6 H, Plt Count 90 L, MPV TNP, Immature Gran % (Auto) 1.200 H, Neut % (Auto) 77.2 H, Lymph % (Auto) 5.2 L, Pender % (Auto) 13.7 H, Eos % (Auto) 1.5, Baso % (Auto) 1.2 H, Absolute Neuts (auto) 2.7, Absolute Lymphs (auto) 0.18 L, Nucleated RBC % 0.6, Diff Path Review June, Platelet Estimate SLT DEC, Anisocytosis 2+, Ovalocytes 1+ 05/26/22 12:17: POC Glucose 129 H 05/26/22 16:56: POC Glucose 131 H Assessment & Plan Assessment/Plan (1) Esophageal cancer: (2) Malignant ascites: PLAN: Plan Impression: -The patient is a 66 yo male who has 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 -KPS is 30%. -Previously personally reviewed CT A/P images from 05/17 to those of 04/14. Significant progression of liver metastases and development of large volume ascites. -Has developed MAURICE and hepatic synthetic dysfunction as evidenced by low albumin and prolonged PT/INR. -He is not a candidate for further cancer directed therapy. Plan: -Will have CT images from 04/14 sent here for official radiology comparison. -Scheduled for abdominal catheter later today. -Evidently will be going home under hospice care but will remain full-code. -I'll discuss with assistant director of public works if patient/family would like re-evaluation as outpatient.
[2022-05-27 12:55] LABS: Pathologist Review Reviewed
== END 2022-05-26 18:55 | disposition hospice, home (50) | DRG 375 ==
LOC: ED 17:33 → MS3 17:39
PROVIDERS: Anesthesiology; Internal Medicine; Surgery; Admitting Provider Family Medicine; Emergency Provider Emergency Medicine; PCP Internal Medicine; Visit Provider Internal Medicine
PROC: 0W9G30Z Drainage of Peritoneal Cavity with Drainage Device, Percutaneous Approach (ICD-10-PCS; CPT 32550; principal; 2022-05-26 13:45)
DX: C15.5 Malignant neoplasm of lower third of esophagus (principal); R18.0 Malignant ascites; C77.2 Secondary and unspecified malignant neoplasm of intra-abdominal lymph nodes; C78.01 Secondary malignant neoplasm of right lung; B37.0 Candidal stomatitis; E87.20 Acidosis, unspecified; K76.6 Portal hypertension; C78.7 Secondary malignant neoplasm of liver and intrahepatic bile duct; C78.6 Secondary malignant neoplasm of retroperitoneum and peritoneum; K92.0 Hematemesis; I95.9 Hypotension, unspecified; E11.42 Type 2 diabetes mellitus with diabetic polyneuropathy; K12.30 Oral mucositis (ulcerative), unspecified; G47.33 Obstructive sleep apnea (adult) (pediatric); E78.5 Hyperlipidemia, unspecified; K21.9 Gastro-esophageal reflux disease without esophagitis; G25.81 Restless legs syndrome; D63.0 Anemia in neoplastic disease; D69.59 Other secondary thrombocytopenia; E03.9 Hypothyroidism, unspecified; N40.0 Benign prostatic hyperplasia without lower urinary tract symptoms; R04.0 Epistaxis; T45.1X5A Adverse effect of antineoplastic and immunosuppressive drugs, initial encounter; R13.10 Dysphagia, unspecified; R62.7 Adult failure to thrive; Z68.23 Body mass index [BMI] 23.0-23.9, adult; Z79.01 Long term (current) use of anticoagulants; Z79.02 Long term (current) use of antithrombotics/antiplatelets; Z79.84 Long term (current) use of oral hypoglycemic drugs; Z79.899 Other long term (current) drug therapy; Z86.73 Personal history of transient ischemic attack (TIA), and cerebral infarction without residual deficits; Z86.711 Personal history of pulmonary embolism; Z86.718 Personal history of other venous thrombosis and embolism; Z87.891 Personal history of nicotine dependence
CPT/HCPCS: 36415; 77001; 80048; 80053; 80076; 82962; 83036; 83690; 83735; 84100; 85014; 85018; 85025; 85027; 85610; 85730; 97802; 99284; J7030; J7120; P9047; A4216; C1729; J2405; J7799